=== PATIENT | female | born 1940 | race Caucasian/White ===

== ENCOUNTER 2019-12-29 07:16 | Outpatient (CLI) | payer MEDICARE, BC, SELFPAY ==
[2019-12-29 08:04] LABS: Blood Urea Nitrogen 16 mg/dL (7-17); Calcium 9.4 mg/dL (8.4-10.2); Carbon Dioxide 28 mmol/L (22-30); Chloride 104 mmol/L (98-107); Estimated Glomerular Filt Rate 43; Glucose 86 mg/dL (65-105); Potassium 4.1 mmol/L (3.4-5.0); Sodium 141 mmol/L (137-145)
== END 2019-12-29 07:17 | disposition home or self-care (01) ==
PROVIDERS: PCP Family Medicine; Visit Provider Physician Assistant Medical
DX: N28.9 Disorder of kidney and ureter, unspecified (principal)
CPT/HCPCS: 36415; 80048

== ENCOUNTER 2020-01-13 10:06 | Outpatient (CLI) | payer MEDICARE, BC, SELFPAY ==
[2020-01-13 10:45] LABS: Collection Time Urine 24 HOURS
[2020-01-13 10:55] LABS: Total Volume 24 Hour Urine 1400 ml
[2020-01-13 11:00] LABS: Total Protein Urine 24 Hr 168 MG/DAY (28-141); Total Protein Urine Random 12 mg/dL
[2020-01-13 11:02] LABS: Creatinine Urine 20.5 mg/dL; Patient Weight 117 Lbs
[2020-01-13 11:05] LABS: Basophils Absolute Auto 0.1 K/mm3 (0.0-0.1); Eosinophils Absolute Auto 0.1 K/mm3 (0-0.3); Eosinophils Percent Auto 1.7 % (0-4.4); Hematocrit 41.4 % (37.0-47.0); Hemoglobin 13.5 g/dL (12.0-15.0); Immature Granulocyte Absolute 0.01 K/mm3 (0.00-0.031); Immature Granulocyte Percent A 0.2 % (0-0.5); Immature Reticulocyte Fraction 8.6 % (3.0-15.9); Lymphocytes Absolute Auto 1.26 K/mm3 (0.9-3.2); Lymphocytes Percent Auto 24.2 % (18.3-44.2); Mean Corpuscular HGB Conc 32.6 g/dl (32-36); Mean Corpuscular Hemoglobin 30.5 pg (26-34); Mean Corpuscular Volume 93.5 fl (80-100); Mean Platelet Volume 11.6 fl (7.4-10.4); Monocytes Absolute Auto 0.4 K/mm3 (0.1-0.6); Monocytes Percent Auto 7.5 % (2.6-8.5); Neutrophils Absolute Auto 3.4 K/mm3 (1.3-6.7); Neutrophils Percent Auto 65.4 % (45.5-73.1); Platelet Count Result 220 k/mm3 (150-375); Red Blood Count 4.43 M/mm3 (4.2-5.4); Red Cell Distribution Width 11.8 % (11.5-14.5); Reticulocyte Hemoglobin Conten 34.4 pg (28.2-35.7); Reticulocyte Percent 1.32 % (0.7-4.3); Reticulocytes Absolute 0.06 B/L (32.2-175.7); White Blood Count 5.2 K/mm3 (4.5-10.0)
[2020-01-13 11:12] LABS: Add Urine Microscopic? YES; Appearance Urine Clear (Clear); Bacteria Urine Trace /hpf; Bilirubin Urine Negative (Negative); Blood Urine Negative (Negative); Color Urine Straw (Yellow); Glucose Urine UA Negative (Negative); Ketones Urine Negative (Negative); Leukocyte Esterase Ur Trace LEU/UL (NEGATIVE); Nitrate Urine Negative (Negative); Protein Urine Negative (Negative); RBC Urine 0-2 /hpf (0-2); Specific Grav Ur 1.008 (1.001-1.035); Urobilinogen Urine Negative mg/dL (<2.0)
[2020-01-13 11:18] LABS: Albumin Level 3.6 g/dL (3.5-5.1); Blood Urea Nitrogen 15 mg/dL (7-17); Calcium 9.7 mg/dL (8.4-10.2); Carbon Dioxide 31 mmol/L (22-30); Chloride 103 mmol/L (98-107); Estimated Glomerular Filt Rate 48; Glucose 95 mg/dL (65-105); Phosphorus 3.8 mg/dL (2.5-4.5); Potassium 4.6 mmol/L (3.4-5.0); Sodium 137 mmol/L (137-145); Uric Acid 3.9 mg/dL (2.5-7.5)
[2020-01-13 11:43] LABS: Iron 95 ug/dL (37-170)
[2020-01-13 11:50] LABS: Erythrocyte Sedimentation Rate 19 mm/hr (0-20)
[2020-01-13 11:52] LABS: Percent Iron Saturation 31 % (20-50)
[2020-01-13 13:23] LABS: Thyroid Stimulating Hormone Reflex 0.625 uIU/mL (0.465-4.68)
[2020-01-13 14:24] LABS: Creatinine Clearance Urine 21.2 ml/min (75-125)
[2020-01-13 15:23] LABS: Complement C3 84 mg/dL (88-165)
[2020-01-16 22:34] LABS: Albumin 3.3 g/dL (3.8-4.8); Alpha 1 Globulin 0.3 g/dL (0.2-0.3); Beta 1 Globulin 0.4 g/dL (0.4-0.6); Gamma Globulin 0.8 g/dL (0.8-1.7); Protein, Total 6.2 g/dL (6.1-8.1)
[2020-01-19 05:02] LABS: Anti Streptolysin O Screen <50 IU/mL (<200)
== END 2020-01-13 10:07 | disposition home or self-care (01) ==
LOC: ANHLAB 10:22
PROVIDERS: PCP Family Medicine
DX: N18.2 Chronic kidney disease, stage 2 (mild) (principal); R80.9 Proteinuria, unspecified; R53.83 Other fatigue; I12.9 Hypertensive chronic kidney disease with stage 1 through stage 4 chronic kidney disease, or unspecified chronic kidney disease; J18.8 Other pneumonia, unspecified organism
CPT/HCPCS: 36415; 80069; 81001; 81050; 82575; 83540; 83550; 83970; 84155; 84156; 84165; 84443; 84550; 85025; 85046; 85652; 86038; 86060; 86160

== ENCOUNTER 2020-02-16 11:07 | Inpatient (IN) | payer MEDICARE, BC, SELFPAY ==
--- NOTE | ~2020-02-16 | XR_ITS ---
XR surgery orthopedic 02/17/2020 15:53 Indication: Intraoperative fixation of left humerus Procedure: 6 fluoroscopic images of the left humerus. 163 seconds of fluoroscopy. Comparison: 02/16/2020 Findings: Interval placement of intramedullary juan j transfixing proximal humeral metadiaphyseal fractu re which is in near-anatomic alignment post reduction. There are 2 proximal interlocking screws and a single distal interlocking screw. Impression: 1: Status post intraoperative fixation of proximal left humeral metadiaphyseal fracture with intramed ullary juan j, now in near-anatomic alignment. Reviewed, dictated and finalized at location A. Impression: 1: Status post intraoperative fixation of proximal left humeral metadiaphyseal fracture with intramedullary juan j, now in near-anatomic alignment.
--- NOTE | ~2020-02-16 | XR_ITS ---
EXAMINATION: XR chest 2V DATE: 02/17/2020 07:53 INDICATION: Hypertension. Preop. TECHNIQUE: Frontal and lateral views of the chest were obtained. COMPARISON: Chest 2 views 09/21/2019, chest CT 11/22/2019 FINDINGS: There is mild scarring at the lung apices. There are airspace opacities in left mid and low er lung zones. There are small nodules in right upper lobe. No pleural effusion or pneumothorax. The heart size is normal. There is a hiatal hernia. There is a comminuted fracture of proximal left humer us. IMPRESSION: 1. Unchanged nodules in right upper lobe, likely chronic infection. 2. Worsened airspace opacities in left mid and lower lung zones, likely a combination of infection an d scarring. 3. Hiatal hernia. 4. Acute comminuted fracture of proximal left humerus. Reviewed, dictated and finalized at location A. IMPRESSION: 1. Unchanged nodules in right upper lobe, likely chronic infection. 2. Worsened airspace opacities in left mid and lower lung zones, likely a combi nation of infection and scarring. 3. Hiatal hernia. 4. Acute comminuted fracture of proximal left humerus.
--- NOTE | ~2020-02-16 | XR_ITS ---
EXAMINATION: XR shoulder LT min 2V EXAM DATE: 02/16/2020 12:17 INDICATION: Initial encounter following injury, with pain of the left shoulder. TECHNIQUE: 4 projections of the left shoulder. There is no prior study for comparison. FINDINGS: There is acute comminuted fracture of the left humeral proximal metaphysis, with additiona l fracture line extending through the greater tuberosity of the humeral head. No evidence of intra-ar ticular extension into the shoulder joint. There is mild angulation and displacement. Closed, posttra umatic fracture(s). There is overlying soft tissue swelling. No other acute findings. IMPRESSION: Left proximal humeral metaphysis, greater tuberosity fractures, mild angulation and displ acement. Reviewed, dictated and finalized at location B. IMPRESSION: Left proximal humeral metaphysis, greater tuberosity fractures, mil d angulation and displacement.
[2020-02-16 11:05] VITALS: BP 121/85; PULSE 73; RESP 12; TEMP 36.6; O2SAT 95
--- NOTE | 2020-02-16 11:24 | ED_ITS ---
I attest that this documentation has been prepared under the direction and in the presence of Kartik Pena PA-C. Drake, Brett A., Scribe 02/16/20;11:24 HPI - Fall General Chief Complaint: Fall Stated Complaint: arm injury Time Seen by Provider: 02/16/20 11:09 Related Data Home Medications Medication Instructions Recorded Confirmed clonazepam 0.5 mg tablet 0.5 mg PO DAILY 09/27/19 02/08/20 mirtazapine 45 mg tablet 15 mg PO DAILY tablet 11/09/19 02/08/20 Allergies Allergy/AdvReac Type Severity Reaction Status Date / Time gabapentin Allergy Unknown Seizure Verified 09/27/19 10:21 FOR[facility]LY [facility], [facility] Social History Social History Smoking status: Never smoker Alcohol intake: never Course Vital Signs Vital signs: Vital Signs Temperature 36.6 C 02/16/20 11:05 Pulse Rate 73 02/16/20 11:05 Respiratory Rate 12 02/16/20 11:05 Blood Pressure 121/85 02/16/20 11:05 Pulse Oximetry 95 02/16/20 11:05 Temperature 36.6 C 02/16/20 11:05 Pulse Rate 73 02/16/20 11:05 Respiratory Rate 12 02/16/20 11:05 Blood Pressure 121/85 02/16/20 11:05 Pulse Oximetry 95 02/16/20 11:05 Discharge Plan Discharge Prescriptions: No Action clonazepam 0.5 mg tablet 0.5 mg PO DAILY RF: 0 mirtazapine 45 mg tablet 15 mg PO DAILY RF: 0 lisinopril 40 mg tablet 40 mg PO DAILY Qty: 90 RF: 2 Belsomra 15 mg tablet 15 mg PO ONCE Qty: 30 RF: 0
--- NOTE | 2020-02-16 11:26 | ED.UPPEXIN ---
HPI - Extremity Injury (Upper) General Chief Complaint: Fall <DO Boo Cash Last Filed: 02/16/20 13:06> Stated Complaint: arm injury <DO Boo Cash Last Filed: 02/16/20 13:06> Time Seen by Provider: 02/16/20 11:09 <DO Boo Cash Last Filed: 02/16/20 13:06> Source: patient and RN notes reviewed <RAFA Cheney Last Filed: 02/16/20 13:07> Mode of arrival: EMS <RAFA Cheney Last Filed: 02/16/20 13:07> Limitations: no limitations <RAFA hCeney Filed: 02/16/20 13:07> History of Present Illness HPI narrative: Pt is a 79 y/o female who presents to the ED via EMS with c/o lt shoulder injury happening this morning. She notes that she was lifting a heavy rock in her garden this morning when she stumbled into the side of her house, striking her lt shoulder. Pt states that she has had pain in her lt shoulder ever since the injury. She denies any head injury during the fall. Pt also currently denies any neck pain, LE pain, CP, ABD pain, or numbness/tingling. <RAFA Cheney Last Filed: 02/16/20 13:07> MD complaint: injury to: left and shoulder <RAFA Cheney Last Filed: 02/16/20 13:07> Other injuries: none <RAFA Cheney Last Filed: 02/16/20 13:07> Place: home <RAFA Cheeny Last Filed: 02/16/20 13:07> Context: fall <RAFA Cheney Last Filed: 02/16/20 13:07> Associated symptoms: other (lt shoulder pain) <RAFA Cheney Last Filed: 02/16/20 13:07> Related Data Home Medications: Home Medications Medication Instructions Recorded Confirmed clonazepam 0.5 mg tablet 0.5 mg PO DAILY 09/27/19 02/08/20 mirtazapine 45 mg tablet 15 mg PO DAILY tablet 11/09/19 02/08/20 <DO Boo Cash Last Filed: 02/16/20 13:06> Allergies/Adverse Reactions: Allergies Allergy/AdvReac Type Severity Reaction Status Date / Time gabapentin Allergy Unknown Seizure Verified 09/27/19 10:21 <DO Boo Cash Last Filed: 02/16/20 13:06> Review of Systems Review of Systems: All systems reviewed & are unremarkable except as noted in HPI and below <Kartik Pena PA-C - Last Filed: 02/16/20 13:07> Cardiovascular: Cardiovascular: Denies chest pain <RAFA Cheney Last Filed: 02/16/20 13:07> Gastrointestinal: Gastrointestinal: Denies abdominal pain <RAFA Cheney Last Filed: 02/16/20 13:07> Musculoskeletal: Musculoskeletal: Reports arthralgias (lt shoulder pain), Denies neck pain and Denies other (LE pain) <RAFA Cheney Last Filed: 02/16/20 13:07> Neurologic: Denies numbness, Denies tingling and Denies other (head injury) <RAFA Cheney Last Filed: 02/16/20 13:07> PMFSH Past Medical History Medical History: Medical History Anemia, unspecified Anxiety Essential hypertension Hepatitis C Hiatal hernia Left wrist fracture Pneumonia Tardive dyskinesia <DO Boo Cash Last Filed: 02/16/20 13:06> Surgical History Surgical History: Surgical History History of repair of hiatal hernia Hx of cholecystectomy <DO Boo Cash Last Filed: 02/16/20 13:06> Social History Social History: Social History Smoking status: Never smoker Alcohol intake: never <DO Boo Cash Last Filed: 02/16/20 13:06> Exam Narrative: Exam Narrative: GENERAL: Well-appearing, well-nourished, and in no acute distress. HEAD: Normocephalic, atraumatic. EYES: PERRLA and EOMI. ENT: Nares clear, no rhinorrhea or epistaxis. Mucous membranes moist. Oropharynx without tonsillar hypertrophy exudate or other lesions. NECK: Supple. No adenopathy or masses. CHEST: Clear to auscultation. No respiratory distress. No wheeze
[2020-02-16] MEDS: MORPHINE SULFATE 4 MG/ML INJ IV PUSH ×2 (11:51→21:27)
[2020-02-16 13:49] VITALS: BP 159/88; PULSE 62; RESP 14; O2SAT 96
[2020-02-16 14:11] VITALS: PULSE 62; RESP 14; O2SAT 96; BMI 21.3
[2020-02-16 14:15] VITALS: BP 167/85; PULSE 58; RESP 18; TEMP 36.2; O2SAT 100
--- NOTE | 2020-02-16 14:36 | ADMGEN ---
This patient, Radha Saenz, was admitted to [facility] Surg Room 300-01. Patient/family oriented to hospital policies and general routines including ID bracelet, bed and alarms, visiting hours, pain management, procedures, bathroom and other care routines, personal items, smoking policy, room service/diet, and visiting hours. Valuables list has been completed. Information on how to activate the Rapid Response Team has been discussed. Patient/Family are encouraged to report perceived risks to care and to ask questions if they do not understand what they are told or what they should do.
--- NOTE | 2020-02-16 20:00 | PM.IMHP ---
H&P: HPI History of Present Illness Chief complaint: Left shoulder pain after fall. Narrative: Radha Saenz is a 79-year-old female with hypertension, GERD, anxiety, insomnia, chronic kidney disease stage 3, and orofacial dyskinesia who presented to the emergency department earlier this morning via EMS for evaluation of left shoulder pain after a fall. She was in her usual state of health this morning and in fact was tending to her garden. When attempting to move a large decorative rock, she stumbled and fell into the side of the house, striking her left shoulder before falling to the ground. She was unable to get herself up due to severe pain in the left arm, but luckily her neighbor was outside and was able to call for help. She was found to have proximal humerus fracture is being admitted in this setting. At the time my evaluation, her pain is poorly controlled despite IV Tylenol and morphine. She has a difficult time describing the pain saying that it ?just hurts.? The pain does not radiate in his situated mostly in the left anterior lateral shoulder and left upper arm. She denies paresthesias, skin color and temperature changes distal to the fracture. The morphine has been causing her nausea and dry heaves as well. She denies any other injury in the fall, specifically denying head trauma and loss of consciousness. Review of Systems Review of Systems: Narrative: Twelve systems were reviewed with pertinent positives and negatives as per HPI. No fever, chills, or sweats. No recent cold or flu symptoms. She denies chest pain and shortness of breath. She had nausea and dry heaves after receiving morphine as detailed above. No diarrhea. No dysuria. No known history of cardiac or pulmonary disease. No history of venous thromboembolism. Except as documented, all other systems were reviewed and are negative. [facility] Past Medical History Medical History (Updated 02/16/20 @ 22:16 by Lily Sagastume PA-C) Anemia With history of iron infusions. Anxiety Aortic valve regurgitation Echocardiogram in May 2018 showed normal left ventricular systolic function and size with mild concentric left ventricular hypertrophy and ejection fraction estimated at 60%. Mild aortic valve regurgitation noted with a valve area of 1.7 centimeters squared. Chronic kidney disease, stage 3 Baseline creatinine is 1.20. Esophageal stricture Essential hypertension Hepatitis C Secondary to needle stick. She has been evaluated by a bedspread cutter hand Dr. camacho at [facility], and was told she had no active issues and needed no treatment. Insomnia Left wrist fracture Migraine headache Orofacial dyskinesia With chronic dry mouth. Osteoporosis Seizure History of seizure x2 after taking gabapentin. Surgical History Surgical History (Updated 02/16/20 @ 22:07 by Lily Sagastume PA-C) History of cholecystectomy History of repair of hiatal hernia History of surgery on left wrist ORIF left distal radius fracture in [place] [address] Hidalgo. Family History Family History Mother Diabetes mellitus Lung cancer Sibling Stomach cancer Sibling Non-Hodgkin lymphoma Social History Social History (Updated 02/16/20 @ 22:07 by Lily Sagastume PA-C) Social History: The patient is and lives in her own home in [place]. She designates her daughter, Liss Sheikh, as her surrogate decision maker and she wishes to be a full code. She is a lifelong nonsmoker and denies alcohol and drug use. Spiritual care concerns: No Agree to blood products: Yes Meds Home Medications and Allergies Home Medications Medication Instructions Recorded Confirmed Type clonazepam 0.5 mg tablet 2 mg PO TID 09/27/19 02/16/20 History mirtazapine 45 mg tablet 15 mg PO HS tablet 11/09/19 02/16/20 History lisinopril 40 mg tablet 40 mg PO DAILY #90 tablet 11/29/19 02/16/20 Rx Pepcid 1 tablet PO HS PRN 02/15
[2020-02-16 21:25] VITALS: BP 132/76; PULSE 66; RESP 20; TEMP 36.5; O2SAT 97
--- NOTE | 2020-02-16 23:52 | PM.CNOR ---
Assessment and Plan Assessment and plan (1) Fracture, humerus, proximal: Qualifiers: Encounter type: initial encounter Fracture alignment: displaced Fracture morphology: other fracture Fracture type: closed Laterality: left Qualified Code(s): S42.292A - Other displaced fracture of upper end of left humerus, initial encounter for closed fracture Code(s): S42.209A - Unspecified fracture of upper end of unspecified humerus, initial encounter for closed fracture Status: Acute Assessment and Plan: Discussed nonoperative and operative treatment options with the patient. Risks and benefits of each as well as alternatives were reviewed. All of the patient's questions were answered. The risks of surgery reviewed including but not limited to: Neurovascular damage, wound complication, infection, blood clot, pulmonary embolus, stroke, myocardial infarction, and anesthetic risks up to and including . Continued pain and possible dysfunction were explained. Specific risks of the procedure including later recurrence of deformity. No guarantees were offered. If hardware used, discussed risk of failure/ breakage and possible need for removal. If complications occur, the patient understands the need for further treatment, possible further surgery. Patient verbalizes understanding and wishes to proceed. PLAN:Left humerus fracture intramedullary nail (2) Chronic kidney disease, stage 3: Code(s): N18.3 - Chronic kidney disease, stage 3 (moderate) Status: Acute History of Present Illness HPI Consult date: 02/17/20 Requesting physician: Steve Pitts MD Consult reason: fracture (Left humerus) Chief complaint: Left shoulder pain after fall. Narrative: 79 yo fell at home 02/16/20 working in garden on left side. Pain and deformity left arm. Pain to move. Denies N/T. Brought to [facility] ER found to have severe fx- admitted. No prior problems with shoulder/ arm. Previous wrist fx. Review of Systems Constitutional: Constitutional: Denies fever(s) Eyes: Eyes: Denies blurry vision ENT: Reports Normal hearing present Cardiovascular: Cardiovascular: Denies chest pain and Denies dyspnea Respiratory: Respiratory: Denies dyspnea and Denies wheezing Gastrointestinal: Gastrointestinal: Denies abdominal pain Genitourinary: Genitourinary: Denies urinary urgency Musculoskeletal: Musculoskeletal: Reports as per HPI and Denies numbness Integumentary/Breasts: Skin/Breast: Denies changing lesions and Denies sores Neurologic: Reports Normal hearing present, Denies behavioral changes, Denies confusion, Denies numbness and Denies convulsions Psychiatric: Psychiatric: Denies behavioral changes, Denies confusion and Denies hallucinations Endocrine: Endocrine: Denies heat intolerance Hematologic/Lymphatic: Hematologic/Lymphatic: Denies easy bleeding Allergic/Immunologic: Allergic/Immunologic: Denies wheezing [facility] Past Medical History Medical History (Updated 02/16/20 @ 23:56 by Kevin Pearson MD) Anemia With history of iron infusions. Anxiety Aortic valve regurgitation Echocardiogram in May 2018 showed normal left ventricular systolic function and size with mild concentric left ventricular hypertrophy and ejection fraction estimated at 60%. Mild aortic valve regurgitation noted with a valve area of 1.7 centimeters squared. Chronic kidney disease, stage 3 Baseline creatinine is 1.20. 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 She has been evaluated by a weld lay out worker Dr. camacho at [facility], and was told she had no active issues and needed no treatment. Insomnia Left wrist fracture Migraine headache Orofacial dyskinesia With chronic dry mouth. Osteoporosis Seizure History of seizure x2 after taking gabapentin. Surgical History Surgical History History of cholecystectomy Hist
[2020-02-17] VITALS (11 sets, daily range): BP systolic 119–163; BP diastolic 68–96; PULSE 54–73; RESP 10–16; TEMP 35.8–36.6; O2SAT 96–100
[2020-02-17 06:08] LABS: Hematocrit 36.3 % (37.0-47.0); Hemoglobin 11.6 g/dL (12.0-15.0); Mean Corpuscular Hemoglobin 30.5 pg (26-34); Mean Corpuscular Volume 95.5 fl (80-100); Mean Platelet Volume 12.2 fl (7.4-10.4); Platelet Count Result 203 k/mm3 (150-375); Red Cell Distribution Width 13.2 % (11.5-14.5); White Blood Count 6.3 K/mm3 (4.5-10.0)
[2020-02-17 06:18] LABS: Prothrombin Time 13.3 Seconds (11.1-14.7)
[2020-02-17 06:19] LABS: Partial Thromboplastin Time 33.1 SECONDS (22.3-36.8)
[2020-02-17 06:24] LABS: Blood Urea Nitrogen 32 mg/dL (7-17); Calcium 8.9 mg/dL (8.4-10.2); Carbon Dioxide 28 mmol/L (22-30); Chloride 103 mmol/L (98-107); Estimated CRCL calculation 37 ml/min; Estimated Glomerular Filt Rate > 60; Glucose 119 mg/dL (65-105); Potassium 4.5 mmol/L (3.4-5.0); Sodium 136 mmol/L (137-145)
--- NOTE | 2020-02-17 09:26 | ECG_ITS ---
Measurements Intervals [place] Rate: 68 P: 55 IN: 186 QRS: 62 QRSD: 73 T: 16 QT: 403 QTc: 429 Interpretive Statements SINUS RHYTHM NONSPECIFIC T-WAVE ABNORMALITY- ANT/INF LEADS BASELINE WANDER- V6 BORDERLINE ECG Electronically Signed On 02-17-2020 9:45:09 CDT by Hakan Garza D.O.
[2020-02-17] MEDS: HYDROMORPHONE HCL 1 MG/ML INJ 0.5 MG IV PUSH (09:48)
[2020-02-17] MEDS: ONDANSETRON INJ 4 MG/2 ML VIAL IV PUSH (09:48)
[2020-02-17] MEDS: LACTATED RINGERS 1,000 ML 30 ML IV CONT ×2 (11:50→16:07)
--- NOTE | 2020-02-17 12:21 | P.OP_ITS ---
Procedure Note - Detailed Date of procedure: 02/17/20 Pre-op diagnosis: Left shoulder pain after fall. LT proximal humerus fracture Post-op diagnosis: same Procedure performed: IM nail left humerus fx Description of procedure: indications: Patient is a 79-year-old woman with a severe left proximal humeral shaft fracture with angulation and 100% displacement. Patient desires operative treatment. Full discussion of risks, benefits and alternatives had with the patient. She verbalizes understanding wishes to proceed. What was done: Patient identified in the preoperative holding. Informed consent given. Operative extremity marked. Patient received intravenous antibiotics. Patient brought to the operating room where underwent general anesthetic by anesthesia team. Positioned supine on operating room table In a semi beach chair position. Careful securing of the head and neck ensured.. Time-out performed confirming the patient, site of the surgery and the plan. Left shoulder prepped and draped usual sterile surgical fashion using a ChloraPrep skin solution. Oblique incision made from the anterolateral corner of the acromion with a 15 blade knife. Hemostasis controlled electrocautery. Dis section carried down to the deltoid and the anterior and middle portions of the deltoid identified and bluntly divided. Subdeltoid retractor placed. Rotator cuff insertion on the greater tuberosity noted. Over the border of the greater tuberosity in the articular surface incision made within the fibers of the rotator cuff supraspinatus with a 15 blade knife. Care taken not to disrupt the insertion. Starter guide pin placed at the border of the humeral head articular surface and verified with image intensification. Hand one-step reaming done over this for the proximal humerus. Guide juan j then inserted across the fracture into the distal fragment and verified with image intensification. Measurement of the length of the humerus done and intramedullary reaming then performed starting with size 7 mm. Based on the size of the intramedullary canal a size 8 mm nail was selected and reaming was performed to a size 9.5 mm. 240 mm length by 8 mm nail opened and assembled on the back table. This was inserted over the guide ujan j and the guide juan j was removed. Correct depth verified with image intensification and 2 locking screws placed with the out communications program manager device proximally using percutaneous stab incisions for the skin and blunt dissection of soft tissue. The most proximal screw locked in place with the neutral end cap. Out communications program manager device removed. Image intensification used to confirm reduction of the fracture. Distal locking then performed from anterior to posterior in a freehand technique. 3.5 mm distal locking screw placed and verified with image intensification. Entire length of the humerus and placement of the nail verified with image intensification. Wounds then thoroughly irrigated with the antibiotic solution. Proximally the rotator cuff was repaired with 0 Vicryl interrupted suture. The deltoid fascia repaired with 0 Vicryl suture. Subcutaneous tissue repaired with 3 0 Monocryl interrupted suture and 3 Monocryl running suture. Stab incisions closed with 3 Monocryl interrupted sutures. Steri-Strips and sterile dressings applied. Patient then woken from anesthesia, extubated and taken to the recovery room in stable condition. All sponge needle and instrument counts were correct at the end of the case. Implants: Biomet VersaNail 240mm X 8mm, 2 proximal locking screws, 4.5 mm, 1 distal locking screw 3.5 mm Anesthesia: GLMA and GETA Surgeon: Kevin Pearson MD Universal [employer]er: Jira Administrator Drains: No Packing: No Pathology: none sent Complications: None Condition: sta
--- NOTE | 2020-02-17 13:27 | WPDANESEPPF ---
Anes - Initial Pre Proc Eval Procedure: Operation Date: 02/17/20 12:00 Proposed Procedures p Left Intramedullary Nail Humerus(Left) - Kevin Pearson MD Date/Time: 02/17/20 13:27 Surgeon: Tom Mendoza PA-C Pre Op Diagnosis: Left shoulder pain after fall. Patient Data Age: 79 Gender: F Height: 5 ft 1 in Weight: 51.26 kg Last Vital Signs Temp 36.1 C L 02/17/20 12:04 Pulse 73 02/17/20 12:04 Resp 16 02/17/20 12:04 BP 132/72 02/17/20 12:04 Pulse Ox 96 02/17/20 12:04 Allergies Allergy/AdvReac Type Severity Reaction Status Date / Time gabapentin Allergy Unknown Seizure Verified 02/17/20 12:39 Home Medications Medication Instructions Recorded Confirmed Type clonazepam 0.5 mg tablet 2 mg PO TID 09/27/19 02/16/20 History mirtazapine 45 mg tablet 15 mg PO HS tablet 11/09/19 02/16/20 History lisinopril 40 mg tablet 40 mg PO DAILY #90 tablet 11/29/19 02/16/20 Rx Pepcid 1 tablet PO HS PRN 02/16/20 02/16/20 History suvorexant [Belsomra] 15 mg PO DAILY 02/16/20 02/16/20 History Laboratory Tests 02/17/20 02/17/20 02/17/20 05:11 05:11 05:11 WBC 6.3 K/mm3 K/mm3 (4.5-10.0) RBC 3.80 M/mm3 L M/mm3 (4.2-5.4) Hgb 11.6 g/dL L g/dL (12.0-15.0) Hct 36.3 % L % (37.0-47.0) MCV 95.5 fl fl (80-100) MCH 30.5 pg pg (26-34) MCHC 32.0 g/dl g/dl (32-36) RDW 13.2 % % (11.5-14.5) Plt Count 203 k/mm3 k/mm3 (150-375) MPV 12.2 fl H fl (7.4-10.4) PT 13.3 Seconds Seconds (11.1-14.7) INR 1.0 APTT 33.1 SECONDS SECONDS (22.3-36.8) Sodium 136 mmol/L L mmol/L (137-145) Potassium 4.5 mmol/L mmol/L (3.4-5.0) Chloride 103 mmol/L mmol/L (98-107) Carbon Dioxide 28 mmol/L mmol/L (22-30) BUN 32 mg/dL H D mg/dL (7-17) Creatinine 0.80 mg/dL mg/dL (0.7-1.0) Estim Creat Clear Calc 37 ml/min ml/min Estimated GFR > 60 (59 - ) Glucose 119 mg/dL H mg/dL (65-105) Calcium 8.9 mg/dL mg/dL (8.4-10.2) Patient hx anesthesia problems: none Family hx anesthesia problems: none [facility] Past Medical History Medical History Anemia With history of iron infusions. Anxiety Aortic valve regurgitation Echocardiogram in May 2018 showed normal left ventricular systolic function and size with mild concentric left ventricular hypertrophy and ejection fraction estimated at 60%. Mild aortic valve regurgitation noted with a valve area of 1.7 centimeters squared. Chronic kidney disease, stage 3 Baseline creatinine is 1.20. 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 She has been evaluated by a orthotic/prosthetic practitioner Dr. camacho at [facility], and was told she had no active issues and needed no treatment. Insomnia Left wrist fracture Migraine headache Orofacial dyskinesia With chronic dry mouth. Osteoporosis Seizure History of seizure x2 after taking gabapentin. Surgical History Surgical History History of cholecystectomy History of repair of hiatal hernia History of surgery on left wrist ORIF left distal radius fracture in August [address] Hidalgo. Family History Family History Mother Diabetes mellitus Lung cancer Sibling Stomach cancer Sibling Non-Hodgkin lymphoma Social History Social History Social History: The patient is and lives in her own home in [place]. She designates her daughter, Liss Sheikh, as her surrogate decision maker and she wishes to be a full code. She is a lifelong nonsmoker and denies alcohol and drug use. Spiritual care concerns: No Agr
[2020-02-17] MEDS: ceFAZolin 2 GM/D5W 50 ML 2 GM/50 ML BAG IVPB (14:08)
[2020-02-17] MEDS: BUPIVACAINE/EPINEPHRINE 0.5% 10 ML VIAL 20 ML INFILTRATE (15:13)
--- NOTE | 2020-02-17 17:15 | SUR.PHASEI ---
1700 SPOKE WITH PTS DAUGHTER MAUREEN PER PHONE- UPDATE GIVEN.
[2020-02-17] MEDS: DOCUSATE SODIUM 100 MG CAPSULE PO (17:50)
[2020-02-17] MEDS: CLONAZEPAM 0.5 MG TAB 2 MG PO (17:50)
--- NOTE | 2020-02-17 18:30 | PM.IMPN ---
Progress Note: A&P Assessment and Plan (1) Fracture of shoulder: Code(s): S42.90XA - Fracture of unspecified shoulder girdle, part unspecified, initial encounter for closed fracture Status: Acute Assessment and Plan: POD 0 left humerus IM nail placement per Dr. Pearson. Patient doing well postoperatively. Dr. Pearson consulted; PT/OT, pain management, post operative care per Dr. Pearson Monitor Per CC, plan will be for patient to return home after discharge with two granddaughters to assist in any needs (2) Essential hypertension: Code(s): I10 - Essential (primary) hypertension Status: Acute Assessment and Plan: Blood pressures were reviewed and stable prior to surgery; BP this evening into 160s sys Continue antihypertensives and monitor daily. Consider prn hydralazine (3) Chronic kidney disease, stage 3: Code(s): N18.3 - Chronic kidney disease, stage 3 (moderate) Status: Acute Assessment and Plan: Cr 0.80. Monitor BMP (4) Anxiety: Code(s): F41.9 - Anxiety disorder, unspecified Status: Acute Assessment and Plan: Continue clonazepam. Subjective Date/time seen: 02/17/20 18:30 Interval history: Patient is a 79 yo F with history of hypertension, GERD, anxiety, insomnia, chronic kidney disease stage 3, and orofacial dyskinesia who is here for closed fracture of left shoulder with mild angulation and dislocation s/p fall while at home; POD 0 IM nail left humerus per Dr. Pearson. Patient states she is doing okay. Pain is reasonable at this moment. She states she has a sensation she has to urinate, but is reoriented that she has a [place] catheter placed. She states she lives with her 2 granddaughters at home and normally ambulates without difficulty. Patient has no other complaints other than wishing to eat. Denies f/c/s, myalgias/arthralgias, headaches, dizziness, lightheadedness, changes in v/h, cp/palpitations, sob/cough, n/v/d/c, abd pain, changes in BMs, dysuria, hematuria, cloudy urine, calf pain/swelling. Review of Systems Review of Systems: All systems reviewed & are unremarkable except as noted in HPI and below Exam Narrative: Exam Narrative: Patient sitting upright in bed at time of visit Const: General: cooperative, comfortable, no acute distress, alert and awake Nutritional Appearance: thin Orientation/consciousness: patient oriented x3 HENMT: Head: normocephalic and atraumatic General nose exam: Normal nares present Face and sinus: face symmetric Mouth: Yes dry mucous membranes Teeth and gingiva: fair dentition Eyes: General: appearance normal, both eyes and all related structures EOM: EOMs intact bilaterally Neck: Neck: trachea midline and supple Resp: Effort & Inspection: normal respiratory effort Auscultation: clear to auscultation bilaterally Cardio: Rate: regular rate Rhythm: regular rhythm Heart sounds: Murmur heart sound present systolic GI: Inspection: non-distended GI Palp: No abdominal tenderness and Yes Soft to palpation Auscultation: normal bowel sounds and normoactive bowel sounds Skin: General skin exam: normal color and no rashes or lesions noted Neuro: General: patient oriented x3, moves all extremities and No no focal motor deficits (left arm immobilized with sling. 5/5 ltgrip strength ) Speech: normal speech Extrem: Left upper extremity: shoulder/upper arm (left arm immobilized in sling. ) Right lower extremity: no edema Left lower extremity: no edema Other: NTTP b/l calves full sensation in all extremities. 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
[2020-02-17] MEDS: MIRTAZAPINE 15 MG TABLET PO (20:57)
[2020-02-18 02:00] VITALS: BP 155/78; PULSE 81; RESP 18; TEMP 36.4; O2SAT 99
[2020-02-18 06:00] VITALS: BP 151/81; PULSE 84; RESP 16; TEMP 36.3; O2SAT 98
[2020-02-18 06:05] LABS: Basophils Percent Auto 0.2 % (0.2-1.2); Hematocrit 33.2 % (37.0-47.0); Hemoglobin 10.6 g/dL (12.0-15.0); Immature Granulocyte Absolute 0.01 K/mm3 (0.00-0.031); Immature Granulocyte Percent A 0.1 % (0-0.5); Lymphocytes Absolute Auto 0.64 K/mm3 (0.9-3.2); Lymphocytes Percent Auto 6.8 % (18.3-44.2); Mean Corpuscular HGB Conc 31.9 g/dl (32-36); Mean Corpuscular Hemoglobin 30.6 pg (26-34); Mean Platelet Volume 12.4 fl (7.4-10.4); Monocytes Absolute Auto 0.7 K/mm3 (0.1-0.6); Monocytes Percent Auto 7.7 % (2.6-8.5); Neutrophils Percent Auto 85.2 % (45.5-73.1); Platelet Count Result 196 k/mm3 (150-375); Red Blood Count 3.46 M/mm3 (4.2-5.4); Red Cell Distribution Width 13.2 % (11.5-14.5); White Blood Count 9.4 K/mm3 (4.5-10.0)
[2020-02-18 06:11] LABS: Blood Urea Nitrogen 25 mg/dL (7-17); Calcium 8.6 mg/dL (8.4-10.2); Carbon Dioxide 30 mmol/L (22-30); Chloride 106 mmol/L (98-107); Estimated CRCL calculation 37 ml/min; Estimated Glomerular Filt Rate > 60; Glucose 122 mg/dL (65-105); Magnesium 2.1 mg/dL (1.6-2.3); Potassium 5.2 mmol/L (3.4-5.0); Sodium 137 mmol/L (137-145)
[2020-02-18] MEDS: CLONAZEPAM 0.5 MG TAB 2 MG PO ×2 (08:30→12:02)
[2020-02-18] MEDS: lisinopriL 20 MG TABLET 40 MG PO (08:30)
[2020-02-18] MEDS: DOCUSATE SODIUM 100 MG CAPSULE PO (08:31)
--- NOTE | 2020-02-18 09:05 | PM.PNORT ---
Progress Note: A&P Assessment and Plan (1) Fracture, humerus, proximal: Qualifiers: Encounter type: subsequent encounter Fracture type: closed Fracture morphology: other fracture Fracture alignment: displaced Laterality: left Fracture healing: with routine healing Qualified Code(s): S42.292D - Other displaced fracture of upper end of left humerus, subsequent encounter for fracture with routine healing Code(s): S42.209A - Unspecified fracture of upper end of unspecified humerus, initial encounter for closed fracture Status: Acute Assessment and Plan: Postoperative day 1. Intramedullary nail left humerus. Patient up in chair. Moderate pain left arm. Wants to go home. Reviewed use of sling. PT/OT today. If cleared okay from Ortho to discharge home. Use of sling when up. Adjust p.r.n.. Light use of left hand. No use left shoulder. Follow up in 3 weeks. Pain medication prescription dispensed. Subjective Subjective Date/Time Seen: 02/18/20 09:05 Patient awake, up in chair. Complains of left arm pain, moderate. Denies numbness or tingling. Denies problems breathing. Exam Const: General: healthy appearing; No in distress or confusion Orientation/consciousness: oriented to person, oriented to place, oriented to time and No confusion HENMT: Head: normal to inspection, normocephalic and atraumatic Eyes: Conjunctivae: conjunctivae normal Sclera: sclerae normal Neck: Neck: supple and nontender Resp: Effort & Inspection: normal respiratory effort and no audible wheezes Cardio: Rate: regular rate Rhythm: regular rhythm Skin: General skin exam: no rashes or lesions noted Neuro: General: oriented to person, oriented to place, oriented to time and No confusion Extrem: Right upper extremity: shoulder/upper arm, elbow/forearm, wrist and Extremity exam: right hand Left upper extremity: normal to inspection, shoulder/upper arm, elbow/forearm, wrist and hand Right lower extremity: normal to inspection Left lower extremity: normal to inspection Other: Left shoulder dressing in place, clean and dry. Able to extend wrist and thumb. Radial, ulnar, median nerve function intact to motor and sensation. Palpable radial pulse, good capillary refill. Good sensation throughout all fingertips. Psych: Affect: normal affect Objective Data Vital Signs Vital Signs: Vital Signs - 24 hr 02/17/20 12:04 02/17/20 16:07 02/17/20 16:20 Temperature 96.9 F L 97.8 F Pulse Rate 73 54 L 64 Respiratory Rate 16 10 L 12 Blood Pressure 132/72 151/92 H 154/83 H Pulse Oximetry 96 100 100 02/17/20 16:35 02/17/20 16:50 02/17/20 17:05 Temperature Pulse Rate 62 64 66 Respiratory Rate 12 16 14 Blood Pressure 157/96 H 156/84 H 161/87 H Pulse Oximetry 96 99 99 02/17/20 17:25 02/17/20 17:40 02/17/20 18:10 Temperature 96.4 F L 96.5 F L 97.8 F Pulse Rate 65 60 67 Respiratory Rate 16 16 16 Blood Pressure 154/92 H 130/94 H 163/85 H Pulse Oximetry 96 96 96 02/17/20 21:55 02/18/20 02:00 02/18/20 06:00 Temperature 97.3 F L 97.5 F L 97.3 F L Pulse Rate 64 81 84 Respiratory Rate 16 18 16 Blood Pressure 134/71 155/78 H 151/81 H Pulse Oximetry 98 99 98 Intake/Output Intake/Output: Intake & Output 02/15/20 02/16/20 02/17/20 02/18/20 23:59 23:59 23:59 23:59 Intake Total 150 690 430 Output Total 0 590 600 Balance 150 100 -170 Meds/Results Medications: Active Medications Generic Name Dose Route Start Last Admin Trade Name Freq PRN Reason Stop Dose Admin Acetaminophen 650 mg 02/17/20 17:20 Tylenol Tablet PO Q6H PRN Pain Rated 1-3 Hydrocodone Bitart/Acetaminophen 1 tab 02/17/20 17:20 02/18/20 06:26 [place] 5-325 Mg PO 1 tab Q3H PRN Administration Pain Rated 4-6 Clonazepam 2 mg 02/17/20 09:00 02/18/20 08:30 Klonopin Tablet PO 2 mg TID ERICK Administration Dicyclomine HCl 20 mg 02/16/20 13:08 Bentyl Inj IM Q6H PRN Abdominal Cramping
--- NOTE | 2020-02-18 09:08 | PCPTNOTE ---
No Care Plan initiated as pateint does not require skilled PT at this time and patient being discharged today.
[2020-02-18 10:01] VITALS: BP 131/74; PULSE 68; RESP 16; TEMP 36.9; O2SAT 98
--- NOTE | 2020-02-18 10:04 | PM.DS ---
DS: Diagnosis Admitting Diagnosis Admitting Diagnosis: Fracture of unspecified shoulder girdle, part unspecified, initial encounter for closed fracture Discharge Diagnosis (1) Fracture of shoulder: Code(s): S42.90XA - Fracture of unspecified shoulder girdle, part unspecified, initial encounter for closed fracture Status: Acute Assessment and Plan: POD 1 left humerus IM nail placement per Dr. Pearson. Patient doing well postoperatively. Patient cleared from discharge from Ortho standpoint, if cleared from PT/OT Dr. Pearson consulted; PT/OT, pain management, post operative care per Dr. Pearson Likely discharge home today Per CC, plan will be for patient to return home after discharge with two granddaughters to assist in any needs Likely outpatient PT/OT (2) Essential hypertension: Code(s): I10 - Essential (primary) hypertension Status: Acute Assessment and Plan: Blood pressures were reviewed and stable; BP this morning 130s sys Continue antihypertensives and monitor daily. F/u up with PCP (3) Chronic kidney disease, stage 3: Code(s): N18.3 - Chronic kidney disease, stage 3 (moderate) Status: Acute Assessment and Plan: Cr 0.80. Further care per PCP (4) Anxiety: Code(s): F41.9 - Anxiety disorder, unspecified Status: Acute Assessment and Plan: Continue clonazepam. (5) Hyperkalemia: Code(s): E87.5 - Hyperkalemia Status: Acute Assessment and Plan: Mild with K at 5.2; asymptomatic, no cp/palpitations F/u with outpatient BMP F/u with PCP DS: Summary Hospital Course Reason for hospitalization: left fractured humerus s/p fall Hospital Course: Patient is a 79 yo F with history of hypertension, GERD, anxiety, insomnia, chronic kidney disease stage 3, and orofacial dyskinesia who presented to the emergency department on morning of 02/15 via EMS for evaluation of left shoulder pain after a fall. Patient was in her usual state of health when she fell into the side of her house after trying to move a large decorative rock, stumbling and falling on her left shoulder into the house. EMS was summoned by her neighbor and was taken to the ER where she was found to have a closed fracture of the left shoulder with mild angulation and displacement. Please see H&P for further details. Presenting VS: Temp Pulse Resp BP Pulse Ox 97.8 F 73 12 121/85 95 02/16/20 11:05 02/16/20 11:05 02/16/20 11:05 02/16/20 11:05 02/16/20 11:05 Presenting Pertinent labs: CBC, BMP, coags, grossly unremarkable Micro: none Imaging: Shoulder X-Ray 02/16/20 12:18 IMPRESSION: Left proximal humeral metaphysis, greater tuberosity fractures, mild angulation and displacement. Chest X-Ray 02/17/20 07:58 IMPRESSION: 1. Unchanged nodules in right upper lobe, likely chronic infection. 2. Worsened airspace opacities in left mid and lower lung zones, likely a combination of infection and scarring. 3. Hiatal hernia. 4. Acute comminuted fracture of proximal left humerus. Intraoperative X-Ray 02/17/20 16:13 Impression: 1: Status post intraoperative fixation of proximal left humeral metadiaphyseal fracture with intramedullary juan j, now in near-anatomic alignment. ECG: Interpretive Statements SINUS RHYTHM NONSPECIFIC T-WAVE ABNORMALITY- ANT/INF LEADS BASELINE WANDER- V6 BORDERLINE ECG Patient was admitted to the hospitalist service for further evaluation for left humerus fracture; Dr. Pearson (orthopedic surgery) was consulted for further management. It was decided that patient would under go IM nail placement per Dr. Pearson. Patient tolerated surgery well, without any complications on 02/16. On following day, patient worked well with PT/OT and recommended outpatient therapy. Pain was well controlled with pain
[2020-02-18 14:00] VITALS: BP 146/61; PULSE 71; RESP 18; TEMP 36.6; O2SAT 100
== END 2020-02-18 14:15 | disposition home or self-care (01) | DRG 494 ==
LOC: ANHED 13:18 → ANH3MEDSUR 13:25
PROVIDERS: Orthopaedic Surgery; Physician Assistant; Admitting Provider Internal Medicine; Emergency Provider Emergency Medicine; PCP Family Medicine; Visit Provider Physician Assistant
PROC: 0PHG36Z Insertion of Intramedullary Internal Fixation Device into Left Humeral Shaft, Percutaneous Approach (ICD-10-PCS; principal; 2020-02-17 12:00)
DX: S42.292A Other displaced fracture of upper end of left humerus, initial encounter for closed fracture (principal); S42.252A Displaced fracture of greater tuberosity of left humerus, initial encounter for closed fracture; I12.9 Hypertensive chronic kidney disease with stage 1 through stage 4 chronic kidney disease, or unspecified chronic kidney disease; N18.3 Chronic kidney disease, stage 3 (moderate); F41.9 Anxiety disorder, unspecified; E87.5 Hyperkalemia; K21.9 Gastro-esophageal reflux disease without esophagitis; G24.4 Idiopathic orofacial dystonia; W01.198A Fall on same level from slipping, tripping and stumbling with subsequent striking against other object, initial encounter; D63.1 Anemia in chronic kidney disease; K44.9 Diaphragmatic hernia without obstruction or gangrene; M81.0 Age-related osteoporosis without current pathological fracture; G47.00 Insomnia, unspecified; I35.1 Nonrheumatic aortic (valve) insufficiency; Z86.19 Personal history of other infectious and parasitic diseases; Z90.49 Acquired absence of other specified parts of digestive tract
CPT/HCPCS: 36415; 71046; 73030; 80048; 83735; 85025; 85027; 85610; 85730; 93005; 96374; 97161; 97165; 97535; 99285; A4565; A9270; J0131; J0690; J1170; J2250; J2270; J2405; J3010; J7120

== ENCOUNTER 2020-02-21 07:19 | Outpatient (CLI) | payer MEDICARE, BC, SELFPAY ==
[2020-02-21 08:14] LABS: Blood Urea Nitrogen 21 mg/dL (7-17); Calcium 8.8 mg/dL (8.4-10.2); Carbon Dioxide 29 mmol/L (22-30); Chloride 102 mmol/L (98-107); Estimated Glomerular Filt Rate 60; Glucose 102 mg/dL (65-105); Potassium 3.5 mmol/L (3.4-5.0); Sodium 135 mmol/L (137-145)
== END 2020-02-21 07:20 | disposition home or self-care (01) ==
PROVIDERS: PCP Family Medicine; Visit Provider Physician Assistant
DX: E87.5 Hyperkalemia (principal)
CPT/HCPCS: 36415; 80048

== ENCOUNTER 2020-03-21 10:36 | Outpatient (CLI) | payer MEDICARE, BC, SELFPAY ==
[2020-03-21 11:08] LABS: Basophils Percent Auto 0.3 % (0.2-1.2); Eosinophils Absolute Auto 0.1 K/mm3 (0-0.3); Eosinophils Percent Auto 1.2 % (0-4.4); Hematocrit 38.2 % (37.0-47.0); Hemoglobin 12.4 g/dL (12.0-15.0); Immature Granulocyte Absolute 0.03 K/mm3 (0.00-0.031); Immature Granulocyte Percent A 0.5 % (0-0.5); Lymphocytes Absolute Auto 1.32 K/mm3 (0.9-3.2); Mean Corpuscular HGB Conc 32.5 g/dl (32-36); Mean Corpuscular Hemoglobin 32.6 pg (26-34); Mean Corpuscular Volume 100.5 fl (80-100); Mean Platelet Volume 11.6 fl (7.4-10.4); Monocytes Absolute Auto 0.3 K/mm3 (0.1-0.6); Monocytes Percent Auto 5.6 % (2.6-8.5); Neutrophils Percent Auto 69.4 % (45.5-73.1); Platelet Count Result 252 k/mm3 (150-375); Red Cell Distribution Width 17.2 % (11.5-14.5); White Blood Count 5.7 K/mm3 (4.5-10.0)
[2020-03-21 11:22] LABS: Alanine Aminotransferase 214 U/L (4-35); Albumin Level 4.3 g/dL (3.5-5.1); Alkaline Phosphatase 103 U/L (38-126); Aspartate Amino Transferase 87 U/L (14-36); Bilirubin,Total 0.6 mg/dL (0.2-1.3); Blood Urea Nitrogen 38 mg/dL (7-17); Calcium 9.9 mg/dL (8.4-10.2); Carbon Dioxide 14 mmol/L (22-30); Chloride 115 mmol/L (98-107); Estimated Glomerular Filt Rate 26; Glucose 88 mg/dL (65-105); Potassium 4.4 mmol/L (3.4-5.0); Sodium 143 mmol/L (137-145)
[2020-03-21 12:00] LABS: Free T4 Free Thyroxine 1.49 ng/mL (0.78-2.19)
[2020-03-22 07:00] LABS: Rapid Plasma Reagin Non-Reactive (NonReactive)
[2020-03-27 19:25] LABS: Hepatitis C RNA, Quant PCR 2130000 IU/mL
== END 2020-03-21 10:37 | disposition home or self-care (01) ==
PROVIDERS: PCP Family Medicine; Visit Provider Family Medicine
DX: N18.3 Chronic kidney disease, stage 3 (moderate) (principal); F41.9 Anxiety disorder, unspecified; B18.2 Chronic viral hepatitis C; R41.0 Disorientation, unspecified
CPT/HCPCS: 36415; 80053; 84439; 84443; 85025; 86592; 87522

== ENCOUNTER 2020-03-21 14:02 | Inpatient (IN) | payer MEDICARE, BC, SELFPAY ==
[2020-03-21] VITALS (8 sets, daily range): BP systolic 117–168; BP diastolic 67–88; PULSE 71–84; RESP 17–26; TEMP 36.7–36.8; O2SAT 97–100; BMI 18.1
--- NOTE | ~2020-03-21 | CT_ITS ---
EXAMINATION: CT chest abdomen pelvis wo con EXAM DATE: 03/21/2020 16:12 INDICATION: Weight loss and metabolic acidosis. Renal disease. Left humeral fracture internal fixatio n in February. TECHNIQUE: Spiral CT of the chest, abdomen and pelvis was performed without contrast. Axial, hampton l and sagittal images were reviewed. Coronal maximum intensity pixel images of chest reviewed. The dose-length product (DLP) for this examination was 280.05 mGy-cm. The exposure was tailored accordin g to patient size (auto mA exposure control), and iterative reconstruction (ASIR) was used as additio nal dose reduction technique. Comparison is made to prior examination from 11/22/2019. FINDINGS: CHEST: There is mild interval progression in scattered regions of reticular nodular airspace disease appearance most consistent with chronic infectious process, possibly fungal or TB infection. There i s lingular atelectasis. There are no pleural or pericardial effusions. Tracheobronchial tree is pa tent. There is no mediastinal, hilar or axillary lymphadenopathy. There is no pneumothorax. Hea rt normal in size. There is mild coronary arterial calcification, arterial sclerosis. There is mil d emphysema and hyperinflation. Comminuted left proximal humeral fracture with fixation hardware. ABDOMEN PELVIS: The liver, spleen, adrenal glands and pancreas are unremarkable. There are cholecyst ectomy clips. There is no nephrolithiasis or hydronephrosis. The uterus is unremarkable. The donny dder is unremarkable. There is no retroperitoneal or pelvic lymphadenopathy. There is mild scatter ed arteriosclerotic disease. The appendix is not positively visualized. There is no pericecal inflammatory change to suggest appe ndicitis. Gastroesophageal surgical changes. There is expected amount of colonic stool. No free intraperitoneal gas. There are bony degenerative changes. No osteoblastic or osteolytic lesions anders ntified. Old right rami fractures with nonunion. IMPRESSION: 1. Mild progression in scattered regions of reticular nodular airspace disease which could be chroni c infectious process, possibly TB or fungal infection. 2. Chronic lingular atelectasis. 3. Mild emphysema and hyperinflation. 4. Chronic, surgical changes. Reviewed, dictated and finalized at location A. IMPRESSION: 1. Mild progression in scattered regions of reticular nodular airspace disease which could be chronic infectious process, possibly TB or fungal infection. 2. Chronic lingular atelectasis. 3. Mild emphysema and hyperinflation. 4. Chronic, surgical changes.
--- NOTE | ~2020-03-21 | MR_ITS ---
EXAMINATION: MR brain/brain stem wo con EXAM DATE: 03/23/2020 16:36 INDICATION: Slurred speech. TECHNIQUE: Magnetic resonance imaging (MRI) of the brain/brain stem obtained without contrast. Sagitt al T1, axial diffusion, gradient echo (T2*), T1, T2, FLAIR sequences obtained. Comparison is made to prior examination from 02/02/2018. FINDINGS: There are no areas of restricted diffusion to suggest acute infarction. There is no acute hemorrhage seen on the T2*, a hemosiderin sensitive sequence. No intraparenchymal brain mass lesion. There is moderate periventricular and subcortical T2/FLAIR signal hyperintensity, nonspecific but pr obably related to small vessel ischemic disease (microangiopathy). There is mild prominence of the sulci and ventricles related to cerebral atrophy. There are no extra-axial collections. Flow voids are seen in the cerebral arteries on the T2-weighted sequences consistent with their expected patenc y. The orbits are unremarkable. Soft tissue is unremarkable. IMPRESSION: 1. No acute intracranial findings. 2. Chronic age related findings. Reviewed, dictated and finalized at location A.
--- NOTE | ~2020-03-21 | US_ITS ---
US renal BI DATE: 03/22/2020 07:45 INDICATION: Acute on chronic renal failure TECHNIQUE: Real-time imaging of both kidneys and urinary bladder COMPARISON: 03/21/2020 CT chest abdomen pelvis FINDINGS: The right kidney measures approximately 8.3 cm length, the left kidney 8.9 cm length. No re nal mass lesion or hydronephrosis is evident. Renal parenchymal echogenicity appears within normal ra nge. The urinary bladder is not well demonstrated. IMPRESSION: No renal mass lesion or hydronephrosis is detected sonographically Reviewed, dictated and finalized at [facility]. Reviewed, dictated and finalized at [facility].
--- NOTE | 2020-03-21 14:31 | ECG_ITS ---
Measurements Intervals [place] Rate: 84 P: 76 [place]: 149 QRS: 74 QRSD: 74 T: 27 QT: 331 QTc: 392 Interpretive Statements SINUS RHYTHM BASELINE WANDER- I, II, III, AVR, AVF, V2-V6 NORMAL ECG Electronically Signed On 03-21-2020 16:02:15 CDT by Hakan Garza D.O.
[2020-03-21 14:44] LABS: Basophils Percent Auto 0.5 % (0.2-1.2); Eosinophils Absolute Auto 0.1 K/mm3 (0-0.3); Eosinophils Percent Auto 0.8 % (0-4.4); Hematocrit 38.9 % (37.0-47.0); Hemoglobin 12.5 g/dL (12.0-15.0); Immature Granulocyte Absolute 0.03 K/mm3 (0.00-0.031); Immature Granulocyte Percent A 0.5 % (0-0.5); Lymphocytes Absolute Auto 1.65 K/mm3 (0.9-3.2); Mean Corpuscular HGB Conc 32.1 g/dl (32-36); Mean Corpuscular Hemoglobin 32.5 pg (26-34); Mean Platelet Volume 11.4 fl (7.4-10.4); Monocytes Absolute Auto 0.4 K/mm3 (0.1-0.6); Monocytes Percent Auto 6.8 % (2.6-8.5); Neutrophils Absolute Auto 4.2 K/mm3 (1.3-6.7); Neutrophils Percent Auto 65.4 % (45.5-73.1); Platelet Count Result 245 k/mm3 (150-375); Red Blood Count 3.85 M/mm3 (4.2-5.4); Red Cell Distribution Width 17.2 % (11.5-14.5); White Blood Count 6.4 K/mm3 (4.5-10.0)
[2020-03-21 14:51] LABS: Add Urine Microscopic? YES; Appearance Urine Clear (Clear); Bacteria Urine Trace /hpf; Bilirubin Urine Negative (Negative); Blood Urine Negative (Negative); Color Urine Yellow (Yellow); Glucose Urine UA Negative (Negative); Hyaline Casts Urine 30-49 /lpf; Ketones Urine Negative (Negative); Leukocyte Esterase Ur Negative LEU/UL (Negative); Mucus Urine Rare /lpf; Nitrate Urine Negative (Negative); Protein Urine 2+ mg/dL (Negative); RBC Urine 0-2 /hpf (0-2); Specific Grav Ur 1.025 (1.001-1.035); Squamous Epithelial Cell Urine Rare /hpf (Few); Urobilinogen Urine Negative mg/dL (<2.0)
[2020-03-21 14:54] LABS: Alanine Aminotransferase 180 U/L (4-35); Albumin Level 4.1 g/dL (3.5-5.1); Alkaline Phosphatase 74 U/L (38-126); Aspartate Amino Transferase 92 U/L (14-36); Bilirubin,Total 0.7 mg/dL (0.2-1.3); Blood Urea Nitrogen 41 mg/dL (7-17); Calcium 9.7 mg/dL (8.4-10.2); Carbon Dioxide 11 mmol/L (22-30); Chloride 117 mmol/L (98-107); Estimated CRCL calculation 17 ml/min; Estimated Glomerular Filt Rate 26; Glucose 124 mg/dL (65-105); Sodium 141 mmol/L (137-145)
--- NOTE | 2020-03-21 15:36 | ED.WEAKNESS ---
HPI - Weakness General Chief complaint: Weakness Stated complaint: altered labs Time Seen by Provider: 03/21/20 15:10 History of Present Illness HPI Narrative: Patient presents with her daughter for generalized weakness and weight loss. She has known kidney failure, and does not want dialysis. Her renal doctor in [place] said that it was not so serious. She has no appetite and barely ate any lunch today. The daughter that is with her is a retired nurse, and has been out of town for 3 weeks for her father's . She returns to find her mother much thinner and very weak. They were at the PCP today, Dr. Casey, and he sent them in. The initial labs show a metabolic acidosis renal insufficiency, and elevated liver function. The patient has a history of hep C from a needlestick in the . Patient broke her shoulder 5 weeks ago, and has a pin in it that supposed to be removed next week. She still has significant pain from that fracture. She has trouble sleeping and has had sleeping pills in the past. She is also on clonazepam for a facial dystonia, which might be contributing to her fatigue. The patient has 2 grown granddaughters living with her. She does not smoke drink or do drugs. Related Data Home Medications Medication Instructions Recorded Confirmed mirtazapine 45 mg tablet 15 mg PO HS tablet 11/09/19 03/21/20 clonazepam 0.5 mg tablet 0.5 mg PO TID tablet 03/21/20 03/21/20 Allergies Allergy/AdvReac Type Severity Reaction Status Date / Time gabapentin Allergy Unknown Seizure Verified 03/21/20 14:18 Review of Systems Review of Systems: Narrative: CONSTITUTIONAL: Denies fever, chills, or sweats. EYES: Denies visual changes, redness, or discharge. ENT: Denies rhinorrhea, congestion, sore throat, or otalgia. CARDIOVASCULAR: Denies chest pain, palpitations, or edema. RESPIRATORY: Denies cough or dyspnea. GASTROINTESTINAL: Denies abdominal pain, nausea, vomiting, or diarrhea. GENITOURINARY: Denies dysuria or hematuria. SKIN: Denies rash or itching. MUSCULOSKELETAL: Denies back pain, joint pain, or myalgia. NEUROLOGIC: Denies headache, numbness, or weakness. PSYCHIATRIC: Denies anxiety or depression. She does have insomnia. [facility] Past Medical History Medical History Anemia With history of iron infusions. Anxiety Aortic valve regurgitation Echocardiogram in May 2018 showed normal left ventricular systolic function and size with mild concentric left ventricular hypertrophy and ejection fraction estimated at 60%. Mild aortic valve regurgitation noted with a valve area of 1.7 centimeters squared. Chronic kidney disease, stage 3 Baseline creatinine is 1.20. 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 She has been evaluated by a test inspection engineer Dr. camacho at [facility], and was told she had no active issues and needed no treatment. Hepatitis C Insomnia Left wrist fracture Migraine headache Orofacial dyskinesia With chronic dry mouth. Osteoporosis Protein, urine, abnormal presence Seizure History of seizure x2 after taking gabapentin. Surgical History Surgical History History of cholecystectomy History of repair of hiatal hernia History of surgery on left wrist ORIF left distal radius fracture in August [address] Hidalgo. Family History Family History Mother Diabetes mellitus Lung cancer Sibling Stomach cancer Sibling Non-Hodgkin lymphoma Social History Social History Social History: The patient is and lives in her own home in [place]. She designates her daughter, Liss Sheikh, as her surrogate decision maker and she wishes to be a full code. She is a lifelong nonsmoker and denies alcohol and drug use. Smoking status:
[2020-03-21] MEDS: SODIUM CHLORIDE 0.9% IV 1,000 ML 999 ML IV CONT (15:40)
[2020-03-21 16:26] LABS: Alveolar/Arterial O2 Gradient 25.6 mmHg; Base Excess ABG -12.9 mEq/l (+/-2.0); Fractional Inspired Oxygen 21 %; HCO3 ABG 11.2 mEq/l (22.0-26.0); Oxygen Saturation ABG 97.2 % (95.0-100.0); Oxyhemoglobin 96.3 % THb (90.0-100.0); PO2 FiO2 Ratio Arterial Blood 4.67 %; pH ABG 7.329 (7.350-7.450)
[2020-03-21 16:28] LABS: Device ROOM AIR; PCO2 ABG 21.8 mmHg (35.0-45.0); Site Drawn RIGHT BRACHIAL
[2020-03-21 16:41] LABS: NT Pro B Type Natriuretic Pept 957 PG/ML (5-100)
--- NOTE | 2020-03-21 19:45 | ADMGEN ---
This patient, Radha Saenz, was admitted to 2 Medical Room 251-. Patient/family oriented to hospital policies and general routines including ID bracelet, bed and alarms, visiting hours, pain management, procedures, bathroom and other care routines, personal items, smoking policy, room service/diet, and visiting hours. Valuables list has been completed. Information on how to activate the Rapid Response Team has been discussed. Patient/Family are encouraged to report perceived risks to care and to ask questions if they do not understand what they are told or what they should do.
--- NOTE | 2020-03-21 20:30 | PC.NURSE ---
PT GIVEN BOX LUNCH, STARTED WRETCHING, STATES I DO THIS ALL THE TIME WHEN I EAT. VOICES NO C/O NAUSEA
[2020-03-21] MEDS: CLONAZEPAM 0.5 MG TAB PO (23:20)
[2020-03-21] MEDS: MIRTAZAPINE 15 MG TABLET PO (23:20)
--- NOTE | 2020-03-21 23:22 | PM.IMHP ---
H&P: HPI History of Present Illness Chief complaint: CHF/metabolic acidosis/renal failure/COPD/weight l Narrative: Radha Saenz is a 79 year old female who recently had a left humerus fracture and is in a sling. Patient is coming in today for generalized weakness and weight loss. She is known to have chronic renal failure creatinine is typically around 1.2. The patient sees pressure supervisor and home but stated it was not see areas. She has had no appetite recently. The patient lives home alone. And her daughter was out of town for the last 3 weeks due to her father status. When she returned her mother was much thinner and very weak. She went to her her primary care doctor in the and her in here. The patient has a history of having hepatitis C which is an active according to the patient. The patient had hepatitis C from a needle stick in the s. Patient had fractured her left shoulder 5 weeks ago and has a pin in her left shoulder and is supposed to have it removed next week. We will to see the patient she was very irritated because she stated that she had been in the emergency room since 6:00 a.m. this morning has not had any of her medications. I saw Dr. Kimball briefly and explained that the patient was coming into the hospital. The patient has mild progression in scattered regions of reticular nodular airspace disease which could be chronic infectious process possibly TB or fungal infection.Like the patient followed up with pulmonology on 02/08/2020 due to an abnormal chest x-ray. However it looks like the visit was restricted to a telephone call due to the the covid 19 pandemic. Is recommended that the patient have a 6 month follow-up with a CT of the chest. Patient's creatinine is 1.9 today. Worse previously it was 0.9. Her bicarb is 11. Patient's arterial blood gases pH was 7.329 CO2 21.8. I did discuss these findings with my collaborative. No bicarb was advice at this time. Nephrology was consulted, patient is being admitted for dehydration acute renal failure. Date of service 03/21/2020 Review of Systems Review of Systems: All systems reviewed & are unremarkable except as noted in HPI and below Constitutional: Constitutional: Reports as per HPI and Reports no additional constitutional complaints Eyes: Eyes: Reports as per HPI and Reports no additional eye complaints ENT: Reports system reviewed and no additional complaints, except as documented and Reports Normal hearing present Cardiovascular: Cardiovascular: Reports no additional cardiovascular complaints Respiratory: Respiratory: Reports no additional respiratory complaints and Reports no additional respiratory complaints Gastrointestinal: Gastrointestinal: Reports as per HPI and Reports no additional gastrointestinal complaints Musculoskeletal: Musculoskeletal: Reports no additional musculoskeletal complaints Integumentary/Breasts: Skin/Breast: Reports system reviewed and no additional complaints, except as docu and Reports as per HPI Neurologic: Reports system reviewed and no additional complaints, except as documented, Reports as per HPI and Reports Normal hearing present Psychiatric: Psychiatric: Reports no additional psychiatric complaints and Reports as per HPI Endocrine: Endocrine: Reports no additional endocrine complaints Hematologic/Lymphatic: Hematologic/Lymphatic: Reports no additional hematologic/lymphatic complaints Allergic/Immunologic: Allergic/Immunologic: Reports no additional allergic/immunologic complaints [facility] Past Medical History Medical History (Updated 03/21/20 @ 23:36 by Rach Raphael NP) Anemia With history of iron infusions. Anxiety Aortic valve regurgitation Echocardiogram in May 2018 showed normal left ventricular systolic function and size with mild concentric left ventricular hypertrophy and ejection fraction estimated at 60%. Mild aortic valve regurgitation noted with a valve area of 1.7 centimeters squared. Chronic kidney disea
[2020-03-21] MEDS: SODIUM CHLORIDE 0.9% IV 1,000 ML 100 ML IV CONT (23:36)
[2020-03-22] VITALS (11 sets, daily range): BP systolic 138–151; BP diastolic 76–87; PULSE 61–81; RESP 16–20; TEMP 36.1–36.6; O2SAT 97–100; BMI 18.1
[2020-03-22 05:36] LABS: Alanine Aminotransferase 125 U/L (4-35); Alkaline Phosphatase 66 U/L (38-126); Aspartate Amino Transferase 50 U/L (14-36); Bilirubin,Total 0.4 mg/dL (0.2-1.3); Blood Urea Nitrogen 28 mg/dL (7-17); Calcium 8.3 mg/dL (8.4-10.2); Carbon Dioxide 15 mmol/L (22-30); Chloride 122 mmol/L (98-107); Estimated CRCL calculation 29 ml/min; Estimated Glomerular Filt Rate 48; Glucose 81 mg/dL (65-105); Magnesium 1.8 mg/dL (1.6-2.3); Potassium 4.2 mmol/L (3.4-5.0); Sodium 141 mmol/L (137-145)
[2020-03-22 05:40] LABS: Basophils Percent Auto 0.4 % (0.2-1.2); Eosinophils Absolute Auto 0.1 K/mm3 (0-0.3); Eosinophils Percent Auto 2.1 % (0-4.4); Hematocrit 32.8 % (37.0-47.0); Hemoglobin 10.5 g/dL (12.0-15.0); Immature Granulocyte Absolute 0.02 K/mm3 (0.00-0.031); Immature Granulocyte Percent A 0.4 % (0-0.5); Lymphocytes Absolute Auto 1.68 K/mm3 (0.9-3.2); Lymphocytes Percent Auto 32.6 % (18.3-44.2); Mean Corpuscular Hemoglobin 32.9 pg (26-34); Mean Corpuscular Volume 102.8 fl (80-100); Mean Platelet Volume 11.4 fl (7.4-10.4); Monocytes Absolute Auto 0.4 K/mm3 (0.1-0.6); Monocytes Percent Auto 7.4 % (2.6-8.5); Neutrophils Absolute Auto 2.9 K/mm3 (1.3-6.7); Neutrophils Percent Auto 57.1 % (45.5-73.1); Platelet Count Result 190 k/mm3 (150-375); Red Blood Count 3.19 M/mm3 (4.2-5.4); Red Cell Distribution Width 17.4 % (11.5-14.5); White Blood Count 5.2 K/mm3 (4.5-10.0)
[2020-03-22 06:11] LABS: Thyroid Stimulating Hormone Reflex 0.838 uIU/mL (0.465-4.68)
[2020-03-22] MEDS: SODIUM CHLORIDE 0.9% IV 1,000 ML 100 ML IV CONT (08:43)
--- NOTE | 2020-03-22 11:00 | PC.NURSE ---
spoke with daughter, Hayley ([phone]), and she agrees to bring megace and belsomra medications this evening 03/22 so patient can receive home medications.
[2020-03-22] MEDS: ACETAMINOPHEN 325 MG TABLET 650 MG PO (11:15)
[2020-03-22] MEDS: CLONAZEPAM 0.5 MG TAB 2 MG PO ×2 (11:15→17:27)
[2020-03-22] MEDS: LACTATED RINGERS 1,000 ML 50 ML IV CONT (15:19)
--- NOTE | 2020-03-22 16:28 | PM.CNNEP ---
Assessment and Plan Assessment and plan (1) ANN-MARIE (acute kidney injury): Code(s): N17.9 - Acute kidney failure, unspecified Status: Acute (2) Metabolic acidosis: Code(s): E87.2 - Acidosis Status: Acute (3) Generalized weakness: Code(s): R53.1 - Weakness Status: Acute (4) Poor appetite: Code(s): R63.0 - Anorexia Status: Acute Assessment and Plan: . (5) Anemia: Code(s): D64.9 - Anemia, unspecified Status: Chronic Assessment and Plan: . Additional Plan Radha had acute kidney injury/acute renal failure by her admission labs. Her creatinine has improved in the last 24 hours with just IVFs arguing her ANN-MARIE/ARF was due to volume depletion/dehydration. This was likely worsened by her continued use of her MELCHOR-I (lisinopril) and ongoing poor oral intake. Her kidney function has improved remarkably as noted by her labs this morning with both improvement in her BUN, creatinine, and metabolic acidosis. given this improvement in her renal function, I will hold off on a extensive workup and evaluation as it is my hope that her kidney function will continue to improve with continued conservative therapy. I will continue to follow patient with you while she remains hospitalized to make further recommendations during her hospital course. Thank you for allowing me to participate in the care this patient. History of Present Illness Reason for Consult Consult date: 03/22/20 Reason for consult: acute renal failure Chief Complaint Chief complaint: CHF/metabolic acidosis/renal failure/COPD/weight l History of Present Illness Narrative: The patient is a 79 year old female with a past medical history as outlined below who presented to [facility] ER with complaints of generalized weakness and weight loss. Apparently, over last three weeks, the patient has had poor oral intake. Her daughter usually checks and on her but she had been on a 10 on for the last three weeks and when she came back to see her mother, she appeared to be much more thinner in weaker than when she was last seen. Her history is further complicated by the fact that she had a recent injury to her left arm/shoulder (fracture) resulting in surgical intervention and plans follow up with Orthopedics. She went to see her primary care physician for the for mention symptoms who then referred her to the ER for further evaluation and therapy. Workup and evaluation in the emergency room demonstrated the a for mention weakness and weight loss but she was otherwise hemodynamically stable. Routine blood tests demonstrated a significant decline in her kidney function in association with a metabolic acidosis. Given the constellation of symptoms as mentioned above and the acute renal failure, she was admitted in the hospital for further evaluation and therapy. Renal consultation was requested due to her acute kidney injury/acute renal failure. From review of the patient's records, her baseline creatinine normally runs around 0.9-1.2 mg/dL and given her age, this would argue she probably has some mild renal insufficiency at baseline. With regard to risk factors for her acute decline in kidney function, she had the aforementioned poor oral intake for last week if not longer coupled with her continued use an MELCHOR-inhibitor. Aside from the aforementioned metabolic acidosis, she did not have any severe electrolyte abnormalities. Interestingly, since her admission, she has been receiving IV fluids and her kidney function has improved remarkably by labs done this morning. Currently, at the time of my visit, she appears to be doing reasonably well and working with physical and occupational therapy. Review of Systems Review of Systems: Narrative: As per HPI. [facility] Past Medical History Medical History (Updated 03/22/20 @ 16:34 by Melva Solis MD) Anemia With history of iron infusions. Anxiety Aortic valve r
--- NOTE | 2020-03-22 17:19 | PM.IMPN ---
Progress Note: A&P Assessment and Plan (1) ANN-MARIE (acute kidney injury): Code(s): N17.9 - Acute kidney failure, unspecified Status: Acute Assessment and Plan: Acute on chronic Nephrology has been consulted patient's baseline is typically 1.2 and is now 1.9. Patient has had a poor oral intake and appears to be dry. Creatinine this morning was 1.0 and BUN improved to 28. Will continue light IV hydration and monitoring renal function and electrolytes. (2) Metabolic acidosis: Code(s): E87.2 - Acidosis Status: Acute Assessment and Plan: Could be related to her acute renal failure. Her anion gap today was 14 which is within normal range. Her creatinine has improved so hopefully her electrolytes follow. Nephrology was consulted and appreciate their input (3) Anxiety: Code(s): F41.9 - Anxiety disorder, unspecified Status: Acute Assessment and Plan: Continue with Remeron. Patient is also on clonazepam which her daughter states is for her tardive dyskinesia history. When I evaluated the patient today she seems to have a little bit of slurred speech but is if she is overmedicated. I am going to decrease her clonazepam to 1 mg t.i.d. p.r.n. for tardive dyskinesia or anxiety. I will also consult Dr. Clancy who is her neurologist and who started her on the clonazepam for any further adjustments. (4) Fracture, humerus, proximal: Qualifiers: Encounter type: subsequent encounter Fracture type: closed Fracture morphology: other fracture Fracture alignment: displaced Laterality: left Fracture healing: with routine healing Qualified Code(s): S42.292D - Other displaced fracture of upper end of left humerus, subsequent encounter for fracture with routine healing Code(s): S42.209A - Unspecified fracture of upper end of unspecified humerus, initial encounter for closed fracture Status: Acute Assessment and Plan: Patient has a pin to her left shoulder and should have a removed within 1 week by the ortho doctor. He Will continue with pain control and monitoring at this time. There is not seem any trauma to her left arm. (5) Poor appetite: Code(s): R63.0 - Anorexia Status: Acute Assessment and Plan: Patient was started on Megace. Hydrate the patient for now. Dietary consult (6) Abnormal CT of the chest: Code(s): R93.89 - Abnormal findings on diagnostic imaging of other specified body structures Status: Acute Assessment and Plan: The patient has already discussed this with her bolt machine operator. CT Chest showed Mild progression in scattered regions of reticular nodular airspace disease which could be chronic infectious process, possibly TB or fungal infection. Chronic lingular atelectasis. Mild emphysema and hyperinflation. Dr. Kimball was consulted on the patient since she has followed her in the past. (7) Generalized weakness: Code(s): R53.1 - Weakness Status: Acute Assessment and Plan: Family states she has generalized weakness due to her poor appetite. Physical and occupational therapy have been ordered and will work with her during her hospitalization. (8) Anemia: Code(s): D64.9 - Anemia, unspecified Status: Chronic Assessment and Plan: Most likely secondary to acute on chronic CKD along with IV fluid hydration. H&H today was 10.5/32.8% Will continue monitoring. Transfuse as needed. No signs of acute bleeding. Time Spent With Patient Time with patient: 25 - 35 minutes Subjective Date/time seen: 03/22
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
[2020-03-22] MEDS: MIRTAZAPINE 15 MG TABLET PO (22:49)
[2020-03-22] MEDS: FAMOTIDINE 20 MG TABLET PO (22:49)
[2020-03-22] MEDS: CLONAZEPAM 0.5 MG TAB 1 MG PO (22:49)
[2020-03-23] VITALS (9 sets, daily range): BP systolic 124–148; BP diastolic 72–89; PULSE 67–78; RESP 16–21; TEMP 35.9–36.4; O2SAT 99–100
[2020-03-23 06:27] LABS: Hematocrit 33.9 % (37.0-47.0); Hemoglobin 10.9 g/dL (12.0-15.0); Mean Corpuscular HGB Conc 32.2 g/dl (32-36); Mean Corpuscular Hemoglobin 32.6 pg (26-34); Mean Corpuscular Volume 101.5 fl (80-100); Mean Platelet Volume 11.2 fl (7.4-10.4); Platelet Count Result 197 k/mm3 (150-375); Red Blood Count 3.34 M/mm3 (4.2-5.4); Red Cell Distribution Width 17.4 % (11.5-14.5); White Blood Count 5.7 K/mm3 (4.5-10.0)
[2020-03-23 06:43] LABS: Alanine Aminotransferase 86 U/L (4-35); Albumin Level 2.8 g/dL (3.5-5.1); Alkaline Phosphatase 60 U/L (38-126); Aspartate Amino Transferase 38 U/L (14-36); Bilirubin,Total 0.5 mg/dL (0.2-1.3); Blood Urea Nitrogen 14 mg/dL (7-17); Calcium 8.5 mg/dL (8.4-10.2); Carbon Dioxide 16 mmol/L (22-30); Chloride 118 mmol/L (98-107); Estimated CRCL calculation 44 ml/min; Estimated Glomerular Filt Rate > 60; Glucose 82 mg/dL (65-105); Magnesium 1.6 mg/dL (1.6-2.3); Phosphorus 2.3 mg/dL (2.5-4.5); Potassium 3.8 mmol/L (3.4-5.0); Sodium 139 mmol/L (137-145)
[2020-03-23] MEDS: polyethylene glycoL 3350 17 GM POWD.PACK PO (08:31)
[2020-03-23] MEDS: FAMOTIDINE 20 MG TABLET PO ×2 (08:31→20:22)
[2020-03-23] MEDS: MAGNESIUM SULF 2 GM/WATER 50ML 2 GM/50 ML BAG IVPB (09:44)
[2020-03-23] MEDS: CLONAZEPAM 0.5 MG TAB 1 MG PO ×2 (09:44→20:21)
[2020-03-23] MEDS: LACTATED RINGERS 1,000 ML 50 ML IV CONT (09:45)
[2020-03-23] MEDS: POTASSIUM PHOS/SODIUM PHOS 250 MG TABLET PO (09:46)
--- NOTE | 2020-03-23 10:58 | ECG_ITS ---
Measurements Intervals [place] Rate: 78 P: 57 MS: 151 QRS: 61 QRSD: 66 T: 34 QT: 354 QTc: 404 Interpretive Statements SINUS RHYTHM BASELINE WANDER- AVF, V6 NORMAL ECG Electronically Signed On 03-23-2020 12:10:50 CDT by Hakan Garza D.O.
--- NOTE | 2020-03-23 11:38 | CONS_ITS ---
DATE OF CONSULTATION: 03/21/2020 HISTORY OF PRESENT ILLNESS: A 79-year-old lady has been admitted to [facility] through the emergency room for the complaint of generalized weakness with weight loss. She carries the diagnoses of: 1. Chronic renal failure. 2. Congestive heart failure. 3. COPD. 4. Left humerus fracture for which she is in the sling. She usually runs her creatinine around 1.2. She was experiencing generalized weakness along with the weight loss. She is under the care of circular tank cooper. She was becoming anorexic. She lives in a home alone and her daughter was out of town for the last 3 weeks due to her father's status. She returned and her mother was very thin and extremely weak. She went to the primary care doctor with her. The patient has the history of having hepatitis, which was hepatitis C, which is an active condition according to the patient. She contacted for needlestick in the early . She fractured her left shoulder about 5 weeks ago with the pin in her left shoulder and supposed to have it removed next week. She was somewhat irritated when she came to the floor because she had been in the emergency room for long time. On x-ray of chest, she was noted to have scattered region of reticular nodular air space disease, it could be chronic infectious, possible TB versus fungus, for which she follows with her sharepoint administrator and seen on 02/08/2020, but that particular visit was not in person, was only a telephone call because of COVID-19 pandemic. She is supposed to have a followup CT of the chest in about 6 months. At the time of admission, her creatinine 1.9, which is worse than before, that was 0.9. Basket Hand Braider was consulted for that particular reason. In the past, the patient has ongoing history of: 1. Anemia for which she required iron infusions, anxiety, aortic valve regurgitation, history of echocardiogram in May 2018, which revealed mild concentric left ventricular hypertrophy with ejection fraction of 60% and mild aortic wall regurgitation. 2. Chronic kidney disease stage 3. 3. Esophageal stricture. 4. Hypertension. 5. Hepatitis C from the needlestick for which she is under the care of wheel cleaner, Dr. Harmon, at [facility]. 6. Left humerus fracture, seen by Dr. Pearson on 02/17/2020, replaced with the IM nailing. 7. Left wrist fracture. 8. Migraine headaches. 9. Orofacial dyskinesia. 10. Osteoporosis. 11. Seizure. She has undergone cholecystectomy, hiatal hernial repair, and the left wrist surgical repair in August [address] Hidalgo. SOCIAL HISTORY: She lives in her own home in [place] with her daughter being her surrogate decision maker. She does not smoke, does not drink. MEDICATIONS: At present, she is takin. Mirtazapine 15 mg at night. 2. Lisinopril 40 mg daily. 3. Clonazepam 0.5 mg t.i.d. 4. Megestrol 625 mg daily, liquid. 5. Belsomra 50 mg at night. ALLERGIES: SHE IS ALLERGIC TO GABAPENTIN. PHYSICAL EXAMINATION: VITAL SIGNS: Evaluation up until now has revealed her to be afebrile with pulse of 84, respirations 26, blood pressure 119/67. GENERAL: She is awake, alert, cooperative, in no obvious acute distress, recognized the physician immediately. Speech not dysphasic, not dysarthric, not dysphonic. HEENT: Head normocephalic with no cranial bruits. Ear, nose, throat examination normal. NECK: Supple with no cervical bruits. No thyromegaly. No lymphadenopathy. HEART: Regular. LUNGS: Clear. ABDOMEN: Soft. No organomegaly. NEUROLOGICAL: She is awake, alert, oriented. Speech not dysphasic, not dysarthric, not dysphonic. Pupils round, regular. Pan of vision full. Extraocular movements full. Face symmetrical. Tongue midline. Motor examination revealed her to have gen
--- NOTE | 2020-03-23 13:10 | PM.PNNEP ---
Progress Note: A&P Assessment and Plan (1) ANN-MARIE (acute kidney injury): Code(s): N17.9 - Acute kidney failure, unspecified Status: Acute Assessment and Plan: resolved due to volume depletion/dehydration worsened by concurrent MELCHOR-I use wean off IVFs once adequate oral intake (2) Metabolic acidosis: Code(s): E87.2 - Acidosis Status: Acute Assessment and Plan: due to #2 slow improvement noted follow trend (3) Generalized weakness: Code(s): R53.1 - Weakness Status: Acute Assessment and Plan: partially due to #1 #4 could be contributing as well PT/OT as tolerated (4) Anemia: Code(s): D64.9 - Anemia, unspecified Status: Chronic Assessment and Plan: chronic issue follow trend of H/H Not much else to add from renal perspective -- will follow from a distance. Subjective Date/time seen: 03/23/20 13:10 Appears to be doing reasonably well at the time of my visit; some issues/concerns regarding slurred speech so Neurology consulted at this time. Exam Narrative: Exam Narrative: General: Frail female in NAD Heart: normal S1 and S2; no rub Lungs: clear to auscultation Abdomen: soft, nontender, nondistended, positive bowel sounds Extremities: no cyanosis or clubbing; no edema Skin: warm and dry Objective Data Vital Signs Vital Signs: Vital Signs Temp Pulse Resp BP Pulse Ox 03/23/20 05:44 36.4 C 77 18 138/83 99 03/23/20 04:00 36.4 C 77 18 138/83 99 03/23/20 00:00 36.2 C L 77 20 148/89 H 99 03/22/20 22:00 36.4 C L 71 20 148/80 H 99 03/22/20 21:00 67 03/22/20 20:00 36.4 C L 71 20 148/80 H 99 03/22/20 16:00 36.1 C L 61 18 138/87 97 03/22/20 14:00 36.6 C 74 16 139/81 100 Intake/Output Intake/Output: Intake & Output 03/20/20 03/21/20 03/22/20 03/23/20 23:59 23:59 23:59 23:59 Intake Total 1000 2717 1307 Output Total 50 1050 200 Balance 950 1667 1107 Meds/Results Medications: Active Medications Generic Name Dose Route Start Last Admin Trade Name Freq PRN Reason Stop Dose Admin Acetaminophen 650 mg 03/22/20 10:17 03/22/20 11:15 Tylenol Tablet PO 650 mg Q4H PRN Administration Mild Pain (1-3) or Fever Clonazepam 1 mg 03/22/20 17:35 03/23/20 09:44 Klonopin Tablet PO 1 mg TID PRN Administration Anxiety and tardive dyskinesia Famotidine 20 mg 03/23/20 09:00 03/23/20 08:31 Pepcid PO 20 mg Q12HR ERICK Administration Lactated Ringer's 1,000 mls @ 50 mls/hr 03/22/20 13:15 03/23/20 09:45 Lr - Lactated Ringers Iv IV CONT 50 mls/hr .Q20H ERICK Administration Mirtazapine 15 mg 03/21/20 22:35 03/22/20 22:49 Remeron PO 15 mg HS ERICK Administration Non-Formulary Medication 625 mg 03/22/20 09:00 Megestrol [Megace Es] PO 04/21/20 09:01 DAILY ERICK Non-Formulary Medication 15 mg 03/22/20 21:00 Suvorexant [Belsomra] PO 04/21/20 21:01 HS ERICK Polyethylene Glycol 17 gm 03/23/20 09:00 03/23/20 08:31 Miralax PO 17 gm QAM ERICK Administration Radiology Results: ITS Impressions Chest/Abdomen/Pelvis CT 03/21/20 16:16 IMPRESSION: 1. Mild progression in scattered regions of reticular nodular airspace disease which could be chronic infectious process, possibly TB or fungal infection. 2. Chronic lingular atelectasis. 3. Mild emphysema and hyperinflation. 4. Chronic, surgical changes. Renal Ultrasound 03/22/20 07:51 IMPRESSION: No renal mass lesion or hydronephrosis is detected sonographically Labs Labs: Laboratory Tests 03/23/20 06:05 03/23/20 06:05 Microbiology 03/21/20 14:34 Urine Catheterized Urine Culture - Final
--- NOTE | 2020-03-23 13:33 | PM.IMPN ---
Progress Note: A&P Assessment and Plan (1) ANN-MARIE (acute kidney injury): Code(s): N17.9 - Acute kidney failure, unspecified Status: Acute Assessment and Plan: Acute on chronic Nephrology has been consulted patient's baseline is typically 1.2 and is now 1.9. Patient has had a poor oral intake and appears to be dry. Creatinine this morning was 0.7 and BUN improved to 14. Renal ultrasound was normal. Will continue light IV hydration and monitoring renal function and electrolytes. (2) Metabolic acidosis: Code(s): E87.2 - Acidosis Status: Acute Assessment and Plan: Could be related to her acute renal failure and hyperchloremia. Her anion gap today was 8 which is within normal range. Her creatinine and electrolytes have improved today but her chloride is still elevated 118. I will discontinue IV fluids at this time. Nephrology was consulted and appreciate their input (3) Anxiety: Code(s): F41.9 - Anxiety disorder, unspecified Status: Acute Assessment and Plan: Continue with Remeron. Patient is also on clonazepam which her daughter states is for her tardive dyskinesia history. When I evaluated the patient today she seems to have a little bit of slurred speech but is if she is overmedicated. I am going to decrease her clonazepam to 1 mg t.i.d. p.r.n. for tardive dyskinesia or anxiety. I will also consult Dr. Okeefe who is her neurologist and who started her on the clonazepam for any further adjustments. (4) Fracture, humerus, proximal: Qualifiers: Encounter type: subsequent encounter Fracture type: closed Fracture morphology: other fracture Fracture alignment: displaced Laterality: left Fracture healing: with routine healing Qualified Code(s): S42.292D - Other displaced fracture of upper end of left humerus, subsequent encounter for fracture with routine healing Code(s): S42.209A - Unspecified fracture of upper end of unspecified humerus, initial encounter for closed fracture Status: Acute Assessment and Plan: Patient has a pin to her left shoulder and should have a removed within 1 week by the ortho doctor. He Will continue with pain control and monitoring at this time. There is not seem any trauma to her left arm. (5) Poor appetite: Code(s): R63.0 - Anorexia Status: Acute Assessment and Plan: Patient was started on Megace. Hydrate the patient for now. Dietary consult (6) Abnormal CT of the chest: Code(s): R93.89 - Abnormal findings on diagnostic imaging of other specified body structures Status: Acute Assessment and Plan: The patient has already discussed this with her night manager. CT Chest showed Mild progression in scattered regions of reticular nodular airspace disease which could be chronic infectious process, possibly TB or fungal infection. Chronic lingular atelectasis. Mild emphysema and hyperinflation. Dr. Kimball was consulted on the patient since she has followed her in the past. (7) Generalized weakness: Code(s): R53.1 - Weakness Status: Acute Assessment and Plan: Family states she has generalized weakness due to her poor appetite. Physical and occupational therapy have been ordered and will work with her during her hospitalization. (8) Anemia: Code(s): D64.9 - Anemia, unspecified Status: Chronic Assessment and Plan: Most likely secondary to acute on chronic CKD along with IV fluid hydration. H&H today was 10.9/33%. Will continue monitoring. Transfuse as needed. No signs of acute bleeding.
--- NOTE | 2020-03-23 13:39 | PCDIET ---
Nutrition Follow-Up & consult for poor appetite complete: Underweight related to inadequate energy intake prior to admission as evidenced by BMI of 18.1, patient at 86% of ideal body weight. Patient to consume 50% of meals and supplements. Goal:Goal has been met. Continue with current goal. Pt current nutrition is heart healthy+compact BID Nutrition recommendation: Agree and increased compact to TID due to pt liking and drinking it Last recorded weight is 49.442 kg. Bowel Motility: Labs Reviewed:Protein 6.0, Albumin 2.8, Phosphorus 2.3, AST 38 ALT 86 Meds Noted:Remeron, Miralax Additional Notes: Seeing pt today for f/u and due to md consult for appetite and wt loss. Pt believes her wt has been steady and states her appetite is better. Over the last four meals she has taken in 60%. She is liking and drinking Ensure compact. Increased to TID. One Ensure compact provides 220 kcal, 9 g protein, 32g CHO, 26 essential vitamins and minerals, and is an excellent source of plant based omega 3 fatty acids ALA. I would recommend holding Megace at this time due to improved oral intake, steady wt, and remeron intake which can increase weight gain. We will follow PO intake and wt every five days.
[2020-03-23] MEDS: ACETAMINOPHEN 325 MG TABLET 650 MG PO (13:59)
[2020-03-23 15:30] LABS: Folic Acid > 20.0 ng/mL (2.76->20)
[2020-03-23] MEDS: MIRTAZAPINE 15 MG TABLET PO (20:21)
[2020-03-24] VITALS: PULSE 70
[2020-03-24 04:00] VITALS: PULSE 67
[2020-03-24 06:00] VITALS: BP 152/77; PULSE 74; RESP 21; TEMP 36.3; O2SAT 100
[2020-03-24 08:00] VITALS: PULSE 66
[2020-03-24] MEDS: LACTATED RINGERS 1,000 ML 50 ML IV CONT (08:01)
[2020-03-24] MEDS: ACETAMINOPHEN 325 MG TABLET 650 MG PO (08:02)
[2020-03-24] MEDS: FAMOTIDINE 20 MG TABLET PO (08:02)
[2020-03-24] MEDS: CLONAZEPAM 0.5 MG TAB 1 MG PO (08:03)
[2020-03-24 09:23] LABS: Hematocrit 31.5 % (37.0-47.0); Hemoglobin 10.4 g/dL (12.0-15.0); Mean Corpuscular Hemoglobin 32.8 pg (26-34); Mean Corpuscular Volume 99.4 fl (80-100); Mean Platelet Volume 10.8 fl (7.4-10.4); Platelet Count Result 224 k/mm3 (150-375); Red Blood Count 3.17 M/mm3 (4.2-5.4); Red Cell Distribution Width 17.1 % (11.5-14.5); White Blood Count 5.1 K/mm3 (4.5-10.0)
[2020-03-24 09:39] LABS: Albumin Level 2.9 g/dL (3.5-5.1); Blood Urea Nitrogen 10 mg/dL (7-17); Calcium 8.2 mg/dL (8.4-10.2); Carbon Dioxide 21 mmol/L (22-30); Chloride 113 mmol/L (98-107); Estimated CRCL calculation 44 ml/min; Estimated Glomerular Filt Rate > 60; Glucose 85 mg/dL (65-105); Potassium 3.4 mmol/L (3.4-5.0); Sodium 139 mmol/L (137-145)
[2020-03-24 09:40] LABS: Magnesium 1.9 mg/dL (1.6-2.3)
[2020-03-24] MEDS: POTASSIUM CHLORIDE 20 MEQ TABLET 40 MEQ PO (11:36)
[2020-03-24 12:00] VITALS: PULSE 77
--- NOTE | 2020-03-24 12:22 | WPDNEUROPN ---
Progress Note: A&P Assessment and Plan (1) Hypomagnesemia: Code(s): E83.42 - Hypomagnesemia Status: Acute (2) LFT elevation: Code(s): R79.89 - Other specified abnormal findings of blood chemistry Status: Acute (3) Hypophosphatasia: Code(s): E83.39 - Other disorders of phosphorus metabolism Status: Acute (4) Irregular cardiac rhythm: Code(s): I49.9 - Cardiac arrhythmia, unspecified Status: Acute (5) Anemia: Code(s): D64.9 - Anemia, unspecified Status: Chronic (6) Generalized weakness: Code(s): R53.1 - Weakness Status: Acute (7) ANN-MARIE (acute kidney injury): Code(s): N17.9 - Acute kidney failure, unspecified Status: Acute (8) Metabolic acidosis: Code(s): E87.2 - Acidosis Status: Acute (9) Hep C w/o coma, chronic: Code(s): B18.2 - Chronic viral hepatitis C Status: Acute (10) Chronic renal insufficiency: Qualifiers: Chronic kidney disease stage: unspecified stage Qualified Code(s): N18.9 - Chronic kidney disease, unspecified Code(s): N18.9 - Chronic kidney disease, unspecified Status: Acute (11) CHF with unknown LVEF: Code(s): I50.9 - Heart failure, unspecified Status: Acute (12) Abnormal weight loss: Code(s): R63.4 - Abnormal weight loss Status: Acute (13) COPD (chronic obstructive pulmonary disease): Qualifiers: COPD type: unspecified COPD Qualified Code(s): J44.9 - Chronic obstructive pulmonary disease, unspecified Code(s): J44.9 - Chronic obstructive pulmonary disease, unspecified Status: Acute (14) Hepatitis C: Qualifiers: Viral hepatitis chronicity: chronic Hepatic coma status: without hepatic coma Qualified Code(s): B18.2 - Chronic viral hepatitis C Code(s): B19.20 - Unspecified viral hepatitis C without hepatic coma Status: Acute (15) Protein, urine, abnormal presence: Qualifiers: Proteinuria type: unspecified Qualified Code(s): R80.9 - Proteinuria, unspecified Code(s): R80.9 - Proteinuria, unspecified Status: Acute (16) Poor appetite: Code(s): R63.0 - Anorexia Status: Acute (17) Hyperkalemia: Code(s): E87.5 - Hyperkalemia Status: Acute (18) Fracture, humerus, proximal: Qualifiers: Encounter type: subsequent encounter Fracture type: closed Fracture morphology: other fracture Fracture alignment: displaced Laterality: left Fracture healing: with routine healing Qualified Code(s): S42.292D - Other displaced fracture of upper end of left humerus, subsequent encounter for fracture with routine healing Code(s): S42.209A - Unspecified fracture of upper end of unspecified humerus, initial encounter for closed fracture Status: Acute (19) Anxiety: Code(s): F41.9 - Anxiety disorder, unspecified Status: Acute (20) Chronic kidney disease, stage 3: Code(s): N18.3 - Chronic kidney disease, stage 3 (moderate) Status: Acute (21) Fracture of shoulder: Qualifiers: Encounter type: initial encounter Fracture type: closed Laterality: left Qualified Code(s): S42.92XA - Fracture of left shoulder girdle, part unspecified, initial encounter for closed fracture Code(s): S42.90XA - Fracture of unspecified shoulder girdle, part unspecified, initial encounter for closed fracture Status: Acute (22) Age-related osteoporosis without current pathological fracture: Code(s): M81.0 - Age-related osteoporosis without current pathological fracture Status: Acute (23) Aortic valve stenosis: Code(s): I35.0 - Nonrheumatic aortic (valve) stenosis Status: Acute (24) Attention-deficit hyperactivity disorder, unspecified type: Code(s): F90.9 - Attention-deficit hyperactivity disorder, unspecified type Status: Acute (25) Chronic viral hepatitis: Code(s
--- NOTE | 2020-03-24 12:30 | PM.DS ---
DS: Diagnosis Admitting Diagnosis Admitting Diagnosis: Acidosis Discharge Diagnosis (1) ANN-MARIE (acute kidney injury): Code(s): N17.9 - Acute kidney failure, unspecified Status: Acute Assessment and Plan: Acute on chronic Nephrology has been consulted patient's baseline is typically 1.2 and is now 1.9. Patient has had a poor oral intake and appears to be dry. Creatinine this morning was 0.7 and BUN improved to 14. Renal ultrasound was normal. Creatinine is is at baseline. (2) Metabolic acidosis: Code(s): E87.2 - Acidosis Status: Acute Assessment and Plan: Could be related to her acute renal failure and hyperchloremia. Her anion gap today was within normal range. Her creatinine and electrolytes have improved today but her chloride is still elevated 113. Nephrology was consulted and does not feel further workup is needed at this time. (3) Anxiety: Code(s): F41.9 - Anxiety disorder, unspecified Status: Acute Assessment and Plan: Continue with Remeron. Patient is also on clonazepam which her daughter states is for her tardive dyskinesia history. When I evaluated the patient today she seems to have a little bit of slurred speech but is if she is overmedicated. I decreased her clonazepam to 1 mg t.i.d. p.r.n. for tardive dyskinesia or anxiety. Will have the patient follow-up with Dr. Okeefe neurologist as an outpatient who started her on the clonazepam for any further adjustments. (4) Fracture, humerus, proximal: Qualifiers: Encounter type: subsequent encounter Fracture alignment: displaced Fracture healing: with routine healing Fracture morphology: other fracture Fracture type: closed Laterality: left Qualified Code(s): S42.292D - Other displaced fracture of upper end of left humerus, subsequent encounter for fracture with routine healing Code(s): S42.209A - Unspecified fracture of upper end of unspecified humerus, initial encounter for closed fracture Status: Acute Assessment and Plan: Patient has a pin to her left shoulder and should have a removed within 1 week by the ortho doctor. Will continue with pain control and monitoring at this time. There is not seem any trauma to her left arm. (5) Poor appetite: Code(s): R63.0 - Anorexia Status: Acute Assessment and Plan: Patient was started on Megace. Hydrate the patient for now. Dietary consult (6) Abnormal CT of the chest: Code(s): R93.89 - Abnormal findings on diagnostic imaging of other specified body structures Status: Acute Assessment and Plan: The patient has already discussed this with her store deli manager. CT Chest showed Mild progression in scattered regions of reticular nodular airspace disease which could be chronic infectious process, possibly TB or fungal infection. Chronic lingular atelectasis. Mild emphysema and hyperinflation. Dr. Kimball was consulted and evaluated the patient and feels that her CT shows chronic changes and patient not have any respiratory symptoms at this time. She will follow-up with the patient in the office for further evaluation and monitoring. (7) Generalized weakness: Code(s): R53.1 - Weakness Status: Acute Assessment and Plan: Family states she has generalized weakness due to her poor appetite. Physical and occupational therapy has discontinued working with them since she did so well and is independent. (8) Anemia: Code(s): D64.9 - Anemia, unspecified Status: Chronic Assessment and Plan: Most likely secondary to acute on chronic CKD harlan
[2020-03-24 13:36] VITALS: BP 125/69; PULSE 77; RESP 18; TEMP 36.3; O2SAT 96
== END 2020-03-24 05:25 | disposition home or self-care (01) | DRG 683 ==
LOC: ANHED 18:16 → ANH2MED 18:36
PROVIDERS: Nurse Practitioner; Admitting Provider Internal Medicine; Emergency Provider Emergency Medicine; PCP Family Medicine; Visit Provider Physician Assistant
DX: N17.9 Acute kidney failure, unspecified (principal); E87.2 Acidosis; I13.0 Hypertensive heart and chronic kidney disease with heart failure and stage 1 through stage 4 chronic kidney disease, or unspecified chronic kidney disease; E46 Unspecified protein-calorie malnutrition; Z68.1 Body mass index [BMI] 19.9 or less, adult; N18.3 Chronic kidney disease, stage 3 (moderate); I50.9 Heart failure, unspecified; D63.1 Anemia in chronic kidney disease; E83.39 Other disorders of phosphorus metabolism; E86.0 Dehydration; E87.5 Hyperkalemia; E83.42 Hypomagnesemia; G24.01 Drug induced subacute dyskinesia; F41.9 Anxiety disorder, unspecified; J43.9 Emphysema, unspecified; R93.89 Abnormal findings on diagnostic imaging of other specified body structures; R53.1 Weakness; M81.0 Age-related osteoporosis without current pathological fracture; I49.9 Cardiac arrhythmia, unspecified; R79.89 Other specified abnormal findings of blood chemistry; B18.2 Chronic viral hepatitis C; Z66 Do not resuscitate; S42.292D Other displaced fracture of upper end of left humerus, subsequent encounter for fracture with routine healing; Z79.899 Other long term (current) drug therapy
CPT/HCPCS: 36415; 36600; 51701; 70551; 71250; 74176; 76775; 80053; 80069; 81001; 82607; 82746; 82805; 83735; 83880; 84439; 84443; 85025; 85027; 86592; 87086; 87522; 93005; 96360; 97161; 97165; 99285; A9270; J3475; J7030; J7120

== ENCOUNTER 2020-03-31 11:01 | Outpatient (CLI) | payer MEDICARE, BC, SELFPAY ==
[2020-03-31 11:59] LABS: Blood Urea Nitrogen 20 mg/dL (7-17); Calcium 9.4 mg/dL (8.4-10.2); Carbon Dioxide 25 mmol/L (22-30); Chloride 104 mmol/L (98-107); Estimated Glomerular Filt Rate 53; Glucose 92 mg/dL (65-105); Potassium 4.5 mmol/L (3.4-5.0); Sodium 137 mmol/L (137-145)
== END 2020-03-31 11:02 | disposition home or self-care (01) ==
PROVIDERS: PCP Family Medicine; Visit Provider Physician Assistant
DX: N17.9 Acute kidney failure, unspecified (principal); N18.3 Chronic kidney disease, stage 3 (moderate); E87.2 Acidosis
CPT/HCPCS: 36415; 80048

== ENCOUNTER 2020-04-07 13:43 | Outpatient (CLI) | payer MEDICARE, BC, SELFPAY ==
[2020-04-07 14:42] LABS: Hematocrit 33.7 % (37.0-47.0); Hemoglobin 10.8 g/dL (12.0-15.0); Mean Corpuscular Hemoglobin 33.1 pg (26-34); Mean Corpuscular Volume 103.4 fl (80-100); Mean Platelet Volume 10.9 fl (7.4-10.4); Platelet Count Result 447 k/mm3 (150-375); Red Blood Count 3.26 M/mm3 (4.2-5.4); White Blood Count 8.3 K/mm3 (4.5-10.0)
== END 2020-04-07 13:44 | disposition home or self-care (01) ==
PROVIDERS: PCP Family Medicine; Visit Provider Nurse Practitioner Family
DX: D64.9 Anemia, unspecified (principal)
CPT/HCPCS: 36415; 85027

== ENCOUNTER 2020-04-13 09:49 | Outpatient (CLI) | payer MEDICARE, BC, SELFPAY ==
[2020-04-13 11:57] LABS: Hepatitis B Surface Antigen Negative (Negative)
[2020-04-13 12:46] LABS: Amphetamine Screen Urine Negative (Negative); Barbiturate Screen Urine Negative (Negative); Benzodiazepines Screen Urine Negative (Negative); Cannabinoid Screen Urine Negative (Negative); Cocaine Screen Urine Negative (Negative); Methadone Screen Urine Negative (Negative); Opiate Screen Urine Negative (Negative); Phencyclidine Screen Urine Negative (Negative)
[2020-04-13 12:47] LABS: Hepatitis B Surface Anti Res Negative
[2020-04-13 13:09] LABS: INR 0.9; Prothrombin Time 12.2 Seconds (11.1-14.7)
[2020-04-16 02:34] LABS: Hepatitis B Core Ab Total Nonreactive (Nonreactive)
[2020-04-25 18:17] LABS: ALT 25 U/L (6-29); Alpha-2-Macroglobulin 359 mg/dL (106-279); Apolipoprotein A1 156 mg/dL (101-198); Fibrosis Score 0.54; Fibrosis Stage F2; GGT 99 U/L (3-65); Haptoglobin 295 mg/dL (43-212); Necroinflammat Act Grade A0; Total Bilirubin 0.4 mg/dL (0.2-1.2)
== END 2020-04-13 09:50 | disposition home or self-care (01) ==
PROVIDERS: Internal Medicine Gastroenterology; PCP Family Medicine; Visit Provider Nurse Practitioner Family
DX: B18.2 Chronic viral hepatitis C (principal); A31.0 Pulmonary mycobacterial infection; E87.2 Acidosis; R79.89 Other specified abnormal findings of blood chemistry
CPT/HCPCS: 36415; 80307; 81596; 85610; 86606; 86698; 86704; 86706; 87340

== ENCOUNTER 2020-04-18 00:11 | Outpatient (CLI) | payer MEDICARE, BC, SELFPAY ==
[2020-04-19 12:59] LABS: SARS-CoV-2 RNA PCR Negative
== END 2020-04-18 00:12 | disposition home or self-care (01) ==
LOC: ANHCOVIDDT 00:11
PROVIDERS: PCP Family Medicine; Visit Provider Orthopaedic Surgery
DX: R11.10 Vomiting, unspecified (principal); R50.9 Fever, unspecified; R51 Headache; Z20.828 Contact with and (suspected) exposure to other viral communicable diseases
CPT/HCPCS: 87635; C9803; U0003

== ENCOUNTER 2020-04-19 09:30 | Outpatient (CLI) | payer MEDICARE, BC, SELFPAY ==
[2020-04-19 17:33] LABS: SARS-CoV-2 RNA PCR Negative
== END 2020-04-19 09:31 ==
LOC: ANHCOVIDDT 05-24 11:53
PROVIDERS: PCP Family Medicine; Visit Provider Orthopaedic Surgery
DX: Z01.812 Encounter for preprocedural laboratory examination (principal); Z11.59 Encounter for screening for other viral diseases
CPT/HCPCS: 87635; C9803; U0003

== ENCOUNTER 2020-04-20 01:37 | Day surgery (SDC) | payer MEDICARE, BC, SELFPAY ==
[2020-04-13 13:48] VITALS: BMI 21.5
[2020-04-20] VITALS (7 sets, daily range): BP systolic 121–145; BP diastolic 67–95; PULSE 71–84; RESP 13–25; TEMP 36.4–36.9; O2SAT 96–100
--- NOTE | ~2020-04-20 | XR_ITS ---
XR surgery orthopedic 04/20/2020 08:56 Left shoulder hardware removal TECHNIQUE: Fluoroscopy used during shoulder hardware removal performed by [Kevin Pearson MD] on 04/20/2020. Fluoroscopy time is 80 seconds. with 5 fluoroscopic images captured. ]DAP is 4.7 mGym2 . ] FINDINGS: Serial images demonstrate removal of intramedullary juan j and 2 proximal screws seen on prior examination. Correlate with procedure note. IMPRESSION: Fluoroscopy used during left shoulder hardware removal.. There is a comminuted proximal l eft humeral fracture with displacement. Please refer to procedural report for details. Reviewed, dictated and finalized at location A. IMPRESSION: Fluoroscopy used during left shoulder hardware removal.. There is a comminuted proximal left humeral fracture with displacement. Please refer to p rocedural report for details.
[2020-04-20] MEDS: LACTATED RINGERS 1,000 ML 30 ML IV CONT ×2 (06:25→09:20)
[2020-04-20] MEDS: IBUPROFEN IV 800 MG/200 ML 800 MG/200 ML BAG 400 MG IVPB (06:34)
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
--- NOTE | 2020-04-20 07:13 | WPDHPUPDATE1 ---
History and Physical Update Update Date/Time: 04/20/20 07:13 History and Physical has been reviewed, including an updated exam of the patient. There are NO changes in the patient's condition. Risks, benefits, and alternatives have been discussed and questions answered. Patient agrees to proceed with procedure.
[2020-04-20] MEDS: ceFAZolin 2 GM/D5W 50 ML 2 GM/50 ML BAG IVPB (07:30)
--- NOTE | 2020-04-20 09:10 | P.OP_ITS ---
Procedure Note - Detailed Date of procedure: 04/20/20 Pre-op diagnosis: Left Arm Painful Hardware/ Left Rotator Cuff Tear Post-op diagnosis: same Procedure performed: Repair left rotator cuff, removal of hardware Description of procedure: Indications: Patient is a 79-year-old woman who is 9 weeks status post open reduction internal fixation left proximal humerus fracture. Patient has gone on to heal the fracture but has prominence of the hardware impinging on the shoulder joint as well as evidence of rotator cuff tear on exam. She presents now for operative treatment. Indicated for removal of the hardware to preserve the shoulder joint. Rotator cuff repair for aid with function of the shoulder. What was done: Patient identified in the preoperative holding. Informed consent given. Operative extremity marked. Patient received intravenous antibiotics. Patient brought to the operating room where underwent general anesthetic by anesthesia team. Positioned In a beach chair position on operating room table. care was taken to secure the head neck and pad the bony prominences. Time-out performed confirming the patient, site of the surgery and the plan. Left shoulder prepped draped usual sterile surgical fashion using a ChloraPrep skin solution. Anterolateral longitudinal incision made from the anterolateral acromion. Fifteen blade knife used for incision. Bovie cautery of subcutaneous tissue and fascia. Deltoid split in line with the incision. Rotator cuff tear noted. Anterior to this the proximal nail was able to be palpated. Retractors were placed and the distraction device was applied to the proximal humerus nail. Small stab incision was made lateral and blunt dissection was carried down to the proximal locking screws. These were removed. Bone was noted to be somewhat osteoporotic in the humeral head. Stab incision made distally and the blunt dissection to the distal locking screw which was removed. This then allowed removal of the nail. The intramedullary canal was thoroughly irrigated and suctioned. Rotator cuff tear had a cuff of tissue left at the insertion. The supraspinatus which had retracted was freed up from adhesions with a Quincy elevator. This was then brought in repaired with 0 Vicryl interrupted suture to the insertion. Good repair was noted. Wounds thoroughly irrigated antibiotic solution. Deep deltoid fascia was repaired with 2 Vicryl interrupted suture. Subcutaneous tissue repaired with 3 0 Monocryl interrupted suture in the skin repaired with a 3 Monocryl running subcuticular stitch. Stab incisions for the screw removal repaired with 3 0 Monocryl interrupted suture. Sterile dressing applied. The patient was then woken from anesthesia, extubated and taken to the recovery room in stable condition. All sponge, needle, instrument counts were correct at the end of the case. Implants: implants removed: Biomet humeral nail with 4.5 mm proximal locking screws x2 proximal and 4.5 mm locking screw x1 distally Anesthesia: GETA Surgeon: Kevin Pearson MD Medical Billing And Coding Instructor: 1st paperhanger assistant Estimated blood loss (mL): 10 Drains: No Packing: No Pathology: none sent Complications: None Condition: stable Disposition: PACU
--- NOTE | 2020-04-20 09:48 | SUR.PHASEI ---
updated Hayley (daughter) [phone]
--- NOTE | 2020-04-20 10:58 | SUR.PHASEII ---
DAUGHTER UPDATED WHEN PT ARRIVED TO OP.
== END 2020-04-20 10:57 | disposition home or self-care (01) ==
PROVIDERS: PCP Family Medicine; Visit Provider Orthopaedic Surgery
PROC: (CPT 20694; principal; 2020-04-20 07:30)
PROC: (CPT 23420; 2020-04-20 07:30)
DX: T84.84XA Pain due to internal orthopedic prosthetic devices, implants and grafts, initial encounter (principal); M79.622 Pain in left upper arm; S42.202D Unspecified fracture of upper end of left humerus, subsequent encounter for fracture with routine healing; M75.102 Unspecified rotator cuff tear or rupture of left shoulder, not specified as traumatic; B18.2 Chronic viral hepatitis C; I12.9 Hypertensive chronic kidney disease with stage 1 through stage 4 chronic kidney disease, or unspecified chronic kidney disease; N18.3 Chronic kidney disease, stage 3 (moderate); D64.9 Anemia, unspecified; I35.1 Nonrheumatic aortic (valve) insufficiency; M81.0 Age-related osteoporosis without current pathological fracture; G47.00 Insomnia, unspecified
CPT/HCPCS: 23410; 20680; A4565; J0330; J0690; J1100; J1741; J2250; J2405; J2704; J3010; J7120

== ENCOUNTER 2020-04-24 07:29 | Outpatient (CLI) | payer MEDICARE, BC, SELFPAY ==
[2020-04-24 07:56] LABS: Hematocrit 38.2 % (37.0-47.0); Hemoglobin 12.2 g/dL (12.0-15.0); Mean Corpuscular HGB Conc 31.9 g/dl (32-36); Mean Corpuscular Hemoglobin 33.9 pg (26-34); Mean Corpuscular Volume 106.1 fl (80-100); Mean Platelet Volume 11.1 fl (7.4-10.4); Platelet Count Result 326 k/mm3 (150-375); Red Cell Distribution Width 15.7 % (11.5-14.5); White Blood Count 7.7 K/mm3 (4.5-10.0)
[2020-04-24 08:05] LABS: Blood Urea Nitrogen 38 mg/dL (7-17); Calcium 9.3 mg/dL (8.4-10.2); Carbon Dioxide 25 mmol/L (22-30); Chloride 106 mmol/L (98-107); Estimated Glomerular Filt Rate 53; Glucose 97 mg/dL (65-105); Potassium 4.6 mmol/L (3.4-5.0); Sodium 136 mmol/L (137-145)
[2020-04-26 20:18] LABS: NIL 0.01 IU/mL; Quantiferon TB Plus, 1T NEGATIVE (NEGATIVE)
== END 2020-04-24 07:30 | disposition home or self-care (01) ==
PROVIDERS: Nurse Practitioner Family; PCP Family Medicine; Visit Provider Physician Assistant Medical
DX: A31.0 Pulmonary mycobacterial infection (principal); N28.9 Disorder of kidney and ureter, unspecified; D64.9 Anemia, unspecified
CPT/HCPCS: 36415; 80048; 85027; 86480

== ENCOUNTER 2020-05-05 07:25 | Outpatient (CLI) | payer MEDICARE, BC, SELFPAY ==
[2020-05-11 19:54] LABS: Hepatitis C Viral RNA PCR 3660000 IU/mL
[2020-05-16 16:28] LABS: HCV Genotype, LiPA 3
== END 2020-05-05 07:26 | disposition home or self-care (01) ==
PROVIDERS: PCP Family Medicine; Visit Provider Internal Medicine Gastroenterology
DX: B18.2 Chronic viral hepatitis C (principal)
CPT/HCPCS: 36415; 87522

== ENCOUNTER 2020-05-26 07:45 | Outpatient (CLI) | payer MEDICARE, BC, SELFPAY ==
[2020-05-26 08:06] LABS: Mean Corpuscular HGB Conc 33.3 g/dl (32-36); Mean Corpuscular Hemoglobin 33.9 pg (26-34); Mean Corpuscular Volume 101.8 fl (80-100); Mean Platelet Volume 10.3 fl (7.4-10.4); Platelet Count Result 318 k/mm3 (150-375); Red Blood Count 3.83 M/mm3 (4.2-5.4); Red Cell Distribution Width 14.1 % (11.5-14.5); White Blood Count 10.1 K/mm3 (4.5-10.0)
[2020-05-26 08:20] LABS: Blood Urea Nitrogen 39 mg/dL (7-17); Calcium 9.2 mg/dL (8.4-10.2); Carbon Dioxide 27 mmol/L (22-30); Chloride 105 mmol/L (98-107); Estimated Glomerular Filt Rate 36; Glucose 88 mg/dL (65-105); Potassium 4.8 mmol/L (3.4-5.0); Sodium 138 mmol/L (137-145)
== END 2020-05-26 07:46 | disposition home or self-care (01) ==
PROVIDERS: Physician Assistant Medical; PCP Family Medicine; Visit Provider Nurse Practitioner Family
DX: R53.83 Other fatigue (principal); N18.3 Chronic kidney disease, stage 3 (moderate)
CPT/HCPCS: 36415; 80048; 85027

== ENCOUNTER 2020-06-14 16:17 | Outpatient (CLI) | payer MEDICARE, BC, SELFPAY ==
[2020-06-14 16:36] LABS: Hemoglobin 12.1 g/dL (12.0-15.0); Mean Corpuscular HGB Conc 33.6 g/dl (32-36); Mean Corpuscular Volume 101.1 fl (80-100); Mean Platelet Volume 10.5 fl (7.4-10.4); Platelet Count Result 281 k/mm3 (150-375); Red Blood Count 3.56 M/mm3 (4.2-5.4); Red Cell Distribution Width 13.9 % (11.5-14.5); White Blood Count 5.8 K/mm3 (4.5-10.0)
[2020-06-14 16:40] LABS: Add Urine Microscopic? YES; Appearance Urine Clear (Clear); Bacteria Urine Trace /hpf; Bilirubin Urine Negative (Negative); Blood Urine Negative (Negative); Color Urine Straw (Yellow); Glucose Urine UA Negative (Negative); Ketones Urine Negative (Negative); Leukocyte Esterase Ur Trace LEU/UL (NEGATIVE); Nitrate Urine Negative (Negative); Protein Urine Negative (Negative); Specific Grav Ur 1.006 (1.001-1.035); Squamous Epithelial Cell Urine Rare /hpf (Few); Urobilinogen Urine Negative mg/dL (<2.0); WBC Urine 0-3 /hpf (0-3)
[2020-06-14 17:01] LABS: Anion Gap 12.3 mmol/L (7-16); Blood Urea Nitrogen 12 mg/dL (7-17); Calcium 9.2 mg/dL (8.4-10.2); Carbon Dioxide 22 mmol/L (22-30); Chloride 101 mmol/L (98-107); Estimated Glomerular Filt Rate 53; Glucose 84 mg/dL (65-105); Potassium 4.3 mmol/L (3.4-5.0); Sodium 131 mmol/L (137-145)
[2020-06-14 17:09] LABS: NT Pro B Type Natriuretic Pept 581 PG/ML (5-100)
== END 2020-06-14 16:18 | disposition home or self-care (01) ==
PROVIDERS: Physician Assistant Medical; PCP Family Medicine; Visit Provider Family Medicine
DX: M79.89 Other specified soft tissue disorders (principal); R06.02 Shortness of breath; N39.0 Urinary tract infection, site not specified
CPT/HCPCS: 36415; 80048; 81001; 83880; 85027; 87086

== ENCOUNTER 2020-06-30 07:27 | Outpatient (CLI) | payer MEDICARE, BC, SELFPAY ==
[2020-06-30 07:44] LABS: Hematocrit 36.1 % (37.0-47.0); Hemoglobin 12.2 g/dL (12.0-15.0); Mean Corpuscular HGB Conc 33.8 g/dl (32-36); Mean Corpuscular Hemoglobin 34.1 pg (26-34); Mean Corpuscular Volume 100.8 fl (80-100); Platelet Count Result 344 k/mm3 (150-375); Red Blood Count 3.58 M/mm3 (4.2-5.4); Red Cell Distribution Width 12.2 % (11.5-14.5); White Blood Count 6.3 K/mm3 (4.5-10.0)
[2020-06-30 08:03] LABS: NT Pro B Type Natriuretic Pept 236 PG/ML (5-100)
[2020-06-30 08:16] LABS: Blood Urea Nitrogen 14 mg/dL (7-17); Calcium 9.4 mg/dL (8.4-10.2); Carbon Dioxide 23 mmol/L (22-30); Chloride 101 mmol/L (98-107); Estimated Glomerular Filt Rate 53; Glucose 86 mg/dL (65-105); Potassium 4.5 mmol/L (3.4-5.0)
[2020-06-30 14:33] LABS: Anion Gap 8 mmol/L (8-16)
[2020-06-30 14:39] LABS: Sodium 132 mmol/L (137-145)
== END 2020-06-30 07:28 | disposition home or self-care (01) ==
LOC: ANHLAB 07:29
PROVIDERS: PCP Family Medicine; Visit Provider Physician Assistant Medical
DX: I50.9 Heart failure, unspecified (principal); D64.9 Anemia, unspecified
CPT/HCPCS: 36415; 80048; 83880; 85027

== ENCOUNTER 2020-06-30 08:57 | Emergency (ER) | payer MEDICARE, BC, SELFPAY ==
[2020-06-30 09:06] VITALS: BP 138/76; PULSE 90; RESP 15; TEMP 37.3; O2SAT 98
[2020-06-30 09:17] VITALS: BP 110/64; PULSE 85; RESP 20; O2SAT 100
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
[2020-06-30 09:22] LABS: Basophils Percent Auto 0.6 % (0.2-1.2); Eosinophils Absolute Auto 0.1 K/mm3 (0-0.3); Eosinophils Percent Auto 1.3 % (0-4.4); Hemoglobin 11.8 g/dL (12.0-15.0); Immature Granulocyte Absolute 0.03 K/mm3 (0.00-0.031); Immature Granulocyte Percent A 0.4 % (0-0.5); Lymphocytes Absolute Auto 1.84 K/mm3 (0.9-3.2); Lymphocytes Percent Auto 27.4 % (18.3-44.2); Mean Corpuscular HGB Conc 33.7 g/dl (32-36); Mean Corpuscular Hemoglobin 33.8 pg (26-34); Mean Corpuscular Volume 100.3 fl (80-100); Monocytes Absolute Auto 0.7 K/mm3 (0.1-0.6); Monocytes Percent Auto 10.9 % (2.6-8.5); Neutrophils Percent Auto 59.4 % (45.5-73.1); Platelet Count Result 347 k/mm3 (150-375); Red Blood Count 3.49 M/mm3 (4.2-5.4); Red Cell Distribution Width 12.4 % (11.5-14.5); White Blood Count 6.7 K/mm3 (4.5-10.0)
[2020-06-30 09:33] LABS: Alanine Aminotransferase 44 U/L (4-35); Albumin Level 3.8 g/dL (3.5-5.1); Alkaline Phosphatase 57 U/L (38-126); Anion Gap 10 mmol/L (8-16); Aspartate Amino Transferase 62 U/L (14-36); Bilirubin,Total 0.7 mg/dL (0.2-1.3); Blood Urea Nitrogen 14 mg/dL (7-17); Calcium 8.9 mg/dL (8.4-10.2); Carbon Dioxide 21 mmol/L (22-30); Chloride 99 mmol/L (98-107); Estimated CRCL calculation 31 ml/min; Estimated Glomerular Filt Rate 53; Glucose 105 mg/dL (65-105); Potassium 3.9 mmol/L (3.4-5.0); Sodium 130 mmol/L (137-145)
[2020-06-30 10:53] VITALS: BP 118/75; PULSE 72; RESP 16; O2SAT 100
== END 2020-06-30 10:54 | disposition home or self-care (01) ==
PROVIDERS: Emergency Provider Emergency Medicine; PCP Family Medicine
DX: E87.1 Hypo-osmolality and hyponatremia (principal); I12.9 Hypertensive chronic kidney disease with stage 1 through stage 4 chronic kidney disease, or unspecified chronic kidney disease; N18.3 Chronic kidney disease, stage 3 (moderate); G24.4 Idiopathic orofacial dystonia; D64.9 Anemia, unspecified; M81.0 Age-related osteoporosis without current pathological fracture; R68.2 Dry mouth, unspecified; I35.1 Nonrheumatic aortic (valve) insufficiency; Z86.19 Personal history of other infectious and parasitic diseases; Z77.22 Contact with and (suspected) exposure to environmental tobacco smoke (acute) (chronic); Z66 Do not resuscitate
CPT/HCPCS: 36415; 80048; 80053; 83880; 85025; 85027; 99283

== ENCOUNTER 2020-07-10 11:37 | Outpatient (CLI) | payer MEDICARE, BC, SELFPAY ==
[2020-07-10 12:18] LABS: Hematocrit 34.5 % (37.0-47.0); Hemoglobin 11.6 g/dL (12.0-15.0); Mean Corpuscular HGB Conc 33.6 g/dl (32-36); Mean Corpuscular Hemoglobin 33.5 pg (26-34); Mean Corpuscular Volume 99.7 fl (80-100); Mean Platelet Volume 10.3 fl (7.4-10.4); Platelet Count Result 278 k/mm3 (150-375); Red Blood Count 3.46 M/mm3 (4.2-5.4); Red Cell Distribution Width 11.9 % (11.5-14.5); White Blood Count 6.2 K/mm3 (4.5-10.0)
[2020-07-10 12:21] LABS: Add Urine Microscopic? NO; Appearance Urine Clear (Clear); Bilirubin Urine Negative (Negative); Blood Urine Negative (Negative); Color Urine Yellow (Yellow); Glucose Urine UA Negative (Negative); Ketones Urine Negative (Negative); Leukocyte Esterase Ur Negative LEU/UL (Negative); Nitrate Urine Negative (Negative); Protein Urine Negative (Negative); Urobilinogen Urine Negative mg/dL (<2.0)
[2020-07-10 12:31] LABS: Anion Gap 6 mmol/L (8-16); Blood Urea Nitrogen 11 mg/dL (7-17); Calcium 9.4 mg/dL (8.4-10.2); Carbon Dioxide 24 mmol/L (22-30); Chloride 98 mmol/L (98-107); Estimated Glomerular Filt Rate > 60; Glucose 87 mg/dL (65-105); Phosphorus 3.4 mg/dL (2.5-4.5); Potassium 4.3 mmol/L (3.4-5.0); Sodium 128 mmol/L (137-145)
[2020-07-10 12:32] LABS: Creatinine Urine 19.4 mg/dL; Total Protein Urine Random 13 mg/dL
[2020-07-10 12:38] LABS: Specific Grav Ur 1.004 (1.001-1.035)
[2020-07-10 12:39] LABS: Complement C3 84 mg/dL (88-165)
[2020-07-10 12:43] LABS: Parathyroid Intact 39.5 pg/mL (7.5-53.5)
[2020-07-10 13:06] LABS: Erythrocyte Sedimentation Rate 59 mm/hr (0-20)
[2020-07-10 13:14] LABS: Vitamin D 25 Hydroxy 79.2 ng/mL
[2020-07-12 13:52] LABS: Complement Total CH50 59 U/mL (31-60)
[2020-07-12 14:59] LABS: Kappa\\Lambda Light Chains 1.23 (0.26-1.65); Lambda Light Chain 31.4 mg/L (5.7-26.3)
== END 2020-07-10 11:38 | disposition home or self-care (01) ==
PROVIDERS: PCP Family Medicine; Referring Provider Family Medicine; Visit Provider Internal Medicine Nephrology
DX: N18.3 Chronic kidney disease, stage 3 (moderate) (principal)
CPT/HCPCS: 36415; 80069; 81003; 82306; 82570; 83883; 83970; 84156; 85027; 85652; 86038; 86160; 86162; 86334; 86335

== ENCOUNTER 2020-07-26 12:42 | Outpatient (CLI) | payer MEDICARE, BC, SELFPAY ==
--- NOTE | ~2020-07-26 | CT_ITS ---
EXAMINATION:CT chest high resolution wo co DATE: 07/26/2020 13:05 INDICATION: Interstitial lung disease. Abnormal findings on diagnostic imaging. TECHNIQUE: Computed tomography (CT) of the chest was performed without intravenous contrast. Automate d exposure control and iterative reconstruction technique were employed. The dose-length product (DLP ) was 129.37 mGy-cm. COMPARISON: Chest CT 03/21/2020, 09/24/2019. FINDINGS: There is mild scarring at the lung apices. There is bronchiectasis in lingula with airspace opacities and volume loss, consistent with scarring. There are scattered centrilobular nodules and t ree-in-bud opacities in clusters in the upper lobes, right middle lobe, and left lower lobe. There is a 14 mm nodule in left lower lobe, stable from 09/24/2019. No pleural effusion. The heart size is no rmal. There are coronary artery calcifications. No pericardial effusion. There are changes of fundopl ication of the stomach with the wrap above the diaphragm. There are changes of cholecystectomy. Calci fications in the spleen are consistent with old granulomatous disease. There is kyphosis and mild spo ndylosis of thoracic spine. There are chronic compression fractures of T4 and T5. IMPRESSION: 1. Stable diffuse lung disease, likely chronic infection. Reviewed, dictated and finalized at location A.
== END 2020-07-26 12:43 | disposition home or self-care (01) ==
PROVIDERS: PCP Family Medicine; Visit Provider Nurse Practitioner Family
DX: R93.89 Abnormal findings on diagnostic imaging of other specified body structures (principal)
CPT/HCPCS: 71250

== ENCOUNTER 2020-08-01 07:00 | Outpatient (CLI) | payer MEDICARE, BC, SELFPAY ==
[2020-08-01 07:46] LABS: Albumin Level 3.5 g/dL (3.5-5.1); Anion Gap 5 mmol/L (8-16); Blood Urea Nitrogen 19 mg/dL (7-17); Calcium 9.3 mg/dL (8.4-10.2); Carbon Dioxide 24 mmol/L (22-30); Chloride 104 mmol/L (98-107); Estimated Glomerular Filt Rate 48; Glucose 92 mg/dL (65-105); Phosphorus 4.2 mg/dL (2.5-4.5); Potassium 4.6 mmol/L (3.4-5.0); Sodium 133 mmol/L (137-145)
[2020-08-01 08:18] LABS: Cortisol Random 6.94 ug/dL
[2020-08-04 06:34] LABS: Albumin 3.3 g/dL (3.8-4.8); Alpha 1 Globulin 0.3 g/dL (0.2-0.3); Beta 1 Globulin 0.4 g/dL (0.4-0.6); Gamma Globulin 0.6 g/dL (0.8-1.7); Protein, Total 5.9 g/dL (6.1-8.1)
[2020-08-05 05:11] LABS: Osmolality, Urine 386 mOsm/kg (50-1200)
== END 2020-08-01 07:01 | disposition home or self-care (01) ==
PROVIDERS: PCP Family Medicine; Referring Provider Family Medicine; Visit Provider Internal Medicine Nephrology
DX: E87.1 Hypo-osmolality and hyponatremia (principal)
CPT/HCPCS: 36415; 80069; 82533; 83930; 83935; 84155; 84165; 84300; 84443

== ENCOUNTER 2020-08-08 08:38 | Outpatient (CLI) | payer MEDICARE, BC, SELFPAY ==
[2020-08-08 10:54] LABS: Cortisol Baseline 0.79 ug/dL
== END 2020-08-08 08:39 | disposition home or self-care (01) ==
LOC: ANHVASCINF 08:47 → ANHLAB 12:47
PROVIDERS: PCP Family Medicine; Visit Provider Internal Medicine Nephrology
DX: E87.1 Hypo-osmolality and hyponatremia (principal)
CPT/HCPCS: 36415; 82533; 96372; J0834

== ENCOUNTER 2020-09-18 13:26 | Outpatient (CLI) | payer MEDICARE, BC, SELFPAY ==
--- NOTE | 2020-09-18 13:42 | ECHO_ITS ---
Patient Info Name: Radha Saenz Age: 80 years : 1940 Gender: Female Ht: 65 in Wt: 122 lbs BSA: 1.59 m2 HR: 70 bpm BP: 116 / 82 mmHg Heart Rhythm: Sinus Rhythm Technical Quality: Good Exam Date: 09/18/2020 1:55 PM Exam Location: [facility] Patient Status: Outpatient Admit Date: 09/18/2020 Staff Ordering Physician: Tania Serna PAC Irish Moss Gatherer: Kwaku Smith RDCS Attending Provider: Tania Serna Referring Physician: Daphne RICO; Exam Type: CA echo doppler color flow Study Info Indications R01.1 - Cardiac murmur, unspecified Complete two-dimensional, color flow and Doppler transthoracic echocardiogram is performed. Strain analysis performed. History/Risk Factors Murmur; HTN. Summary 1. Complete two-dimensional, color flow and Doppler transthoracic echocardiogram is performed. 2. Left ventricular systolic function is normal, estimated at 60-65%. 3. There is moderate asymmetric septal increased left ventricular wall thickness. 4. The left ventricular diastolic function is grade I diastolic dysfunction. 5. Global longitudinal strain is mildly elevated at -16 %. 6. There is trace mitral valve regurgitation. 7. There is no aortic valve stenosis. 8. There is moderate tricuspid valve regurgitation. 9. No pulmonary hypertension, estimated pulmonary arterial systolic pressure is 33 mmHg. Left Ventricle Left ventricular chamber dimension is normal. Left ventricular systolic function is normal, estimated at 60-65%. There is moderate asymmetric septal increased left ventricular wall thickness. The left ventricular diastolic function is grade I diastolic dysfunction. Global longitudinal strain is mildly elevated at -16 %. Right Ventricle Right ventricular chamber dimension is normal. Right ventricular systolic function is normal. Left Atria Left atrial chamber dimension is normal. Right Atria Right atrial chamber dimension is normal. Aortic Valve The aortic valve is probable trileaflet. There is mild aortic valve sclerosis. There is no aortic valve stenosis. There is mild aortic valve regurgitation. Pulmonic Valve The pulmonic valve is not well visualized. There is trace pulmonic regurgitation. Mitral Valve The mitral valve has normal leaflets. There is trace mitral valve regurgitation. The mitral valve annulus is mildly calcified. Tricuspid Valve The tricuspid valve leaflets are normal. There is moderate tricuspid valve regurgitation. No pulmonary hypertension, estimated pulmonary arterial systolic pressure is 33 mmHg. Pericardium/Pleural The pericardium appears normal. There is no pericardial effusion. Inferior Vena Cava Normal inferior vena cava with >50% collapse upon inspiration consistent with normal right atrial pressure, 5 mmHg. Aorta The aortic root size at the sinus of Valsalva is normal. Left Ventricular Outflow Tract Name Value Normal LVOT 2D LVOT Diameter 2.0 cm LVOT Doppler LVOT Peak Gradient 9 mmHg LVOT Mean Gradient 5 mmHg LVOT VTI
== END 2020-09-18 13:27 | disposition home or self-care (01) ==
PROVIDERS: PCP Family Medicine; Visit Provider Physician Assistant Medical
DX: M79.89 Other specified soft tissue disorders (principal); R01.1 Cardiac murmur, unspecified; I36.1 Nonrheumatic tricuspid (valve) insufficiency
CPT/HCPCS: 93306

== ENCOUNTER 2020-10-02 07:52 | Outpatient (CLI) | payer MEDICARE, BC, SELFPAY ==
[2020-10-02 08:29] LABS: Albumin Level 3.5 g/dL (3.5-5.1); Anion Gap 6 mmol/L (8-16); Blood Urea Nitrogen 11 mg/dL (7-17); Calcium 9.1 mg/dL (8.4-10.2); Carbon Dioxide 28 mmol/L (22-30); Chloride 95 mmol/L (98-107); Estimated Glomerular Filt Rate 48; Glucose 83 mg/dL (65-105); Sodium 129 mmol/L (137-145)
[2020-10-02 08:36] LABS: Creatinine Urine 81.9 mg/dL; Total Protein Urine Random 12 mg/dL
== END 2020-10-02 07:53 | disposition home or self-care (01) ==
PROVIDERS: PCP Family Medicine; Referring Provider Family Medicine; Visit Provider Internal Medicine Nephrology
DX: N18.30 Chronic kidney disease, stage 3 unspecified (principal)
CPT/HCPCS: 36415; 80069; 82570; 84156

== ENCOUNTER 2020-10-24 07:34 | Outpatient (CLI) | payer MEDICARE, BC, SELFPAY ==
[2020-10-24 08:38] LABS: Basophils Percent Auto 0.7 % (0.2-1.2); Eosinophils Absolute Auto 0.5 K/mm3 (0-0.3); Eosinophils Percent Auto 8.4 % (0-4.4); Hematocrit 37.8 % (37.0-47.0); Hemoglobin 12.4 g/dL (12.0-15.0); Immature Granulocyte Absolute 0.01 K/mm3 (0.00-0.031); Immature Granulocyte Percent A 0.2 % (0-0.5); Lymphocytes Absolute Auto 1.77 K/mm3 (0.9-3.2); Lymphocytes Percent Auto 32.5 % (18.3-44.2); Mean Corpuscular HGB Conc 32.8 g/dl (32-36); Mean Corpuscular Hemoglobin 30.5 pg (26-34); Mean Corpuscular Volume 92.9 fl (80-100); Mean Platelet Volume 10.7 fl (7.4-10.4); Monocytes Absolute Auto 0.5 K/mm3 (0.1-0.6); Monocytes Percent Auto 8.6 % (2.6-8.5); Neutrophils Absolute Auto 2.7 K/mm3 (1.3-6.7); Neutrophils Percent Auto 49.6 % (45.5-73.1); Platelet Count Result 273 k/mm3 (150-375); Red Blood Count 4.07 M/mm3 (4.2-5.4); Red Cell Distribution Width 12.7 % (11.5-14.5); White Blood Count 5.5 K/mm3 (4.5-10.0)
[2020-10-24 08:56] LABS: Potassium 4.2 mmol/L (3.4-5.0)
[2020-10-24 09:10] LABS: Alanine Aminotransferase 15 U/L (4-35); Albumin Level 3.9 g/dL (3.5-5.1); Alkaline Phosphatase 63 U/L (38-126); Anion Gap 6 mmol/L (8-16); Aspartate Amino Transferase 29 U/L (14-36); Bilirubin,Total 0.7 mg/dL (0.2-1.3); Blood Urea Nitrogen 15 mg/dL (7-17); Calcium 9.6 mg/dL (8.4-10.2); Carbon Dioxide 26 mmol/L (22-30); Chloride 107 mmol/L (98-107); Estimated Glomerular Filt Rate 53; Glucose 87 mg/dL (65-105); Sodium 139 mmol/L (137-145)
[2020-10-24 09:30] LABS: Free T4 Free Thyroxine 0.91 ng/mL (0.78-2.19)
[2020-10-24 10:11] LABS: Folic Acid > 20.0 ng/mL (2.76->20); Vitamin B12 > 1000.0 pg/mL (239-931)
[2020-10-27 05:32] LABS: Thyroid Peroxidase Antibodies <1 IU/mL (<9)
[2020-10-27 07:20] LABS: Triiodothyronine T3 Free 3.4 pg/mL (2.3-4.2)
[2020-10-27 14:56] LABS: Thyroid Stimulating Immunoglob <89 % baseline (<140)
[2020-11-01 13:17] LABS: Adrenocorticotropic Hormone 23 pg/mL (6-50)
== END 2020-10-24 07:35 | disposition home or self-care (01) ==
LOC: ANHLAB 07:37
PROVIDERS: PCP Family Medicine
DX: R94.7 Abnormal results of other endocrine function studies (principal); R53.83 Other fatigue
CPT/HCPCS: 36415; 80053; 82024; 82533; 82607; 82746; 84439; 84443; 84445; 84481; 85025; 86376

== ENCOUNTER 2020-11-23 07:43 | Outpatient (CLI) | payer MEDICARE, BC, SELFPAY ==
[2020-11-28 05:17] LABS: Adrenocorticotropic Hormone 38 pg/mL (6-50)
== END 2020-11-23 07:44 | disposition home or self-care (01) ==
PROVIDERS: PCP Family Medicine; Visit Provider Nurse Practitioner Family
DX: R94.7 Abnormal results of other endocrine function studies (principal)
CPT/HCPCS: 36415; 82024; 82533; 96372; J0834

== ENCOUNTER 2021-01-10 04:21 | Emergency (ER) | payer MEDICARE, BC, SELFPAY ==
--- NOTE | ~2021-01-10 | XR_ITS ---
EXAMINATION: XR knee LT 3V DATE: 01/10/2021 05:05 INDICATION: Left knee pain. TECHNIQUE: 3 views of left knee were obtained. COMPARISON: Left knee radiographs 08/27/2012 FINDINGS: There is a comminuted fracture of patella in near-anatomic alignment. There is mild tricomp artmental osteoarthritis. There is chondrocalcinosis of the menisci. There is ossification of proxima l medial collateral ligament. There is a large knee joint effusion. Prepatellar bursitis is noted. IMPRESSION: 1. Comminuted fracture of patella. 2. Mild left knee osteoarthritis. 3. Large knee joint effusion. Reviewed, dictated and finalized at location A. DEVELOPER
[2021-01-10 04:23] VITALS: BP 162/85; PULSE 75; RESP 16; TEMP 36.8; O2SAT 95
--- NOTE | 2021-01-10 04:45 | ED.FALL ---
HPI - Fall General Chief Complaint: Fall Stated Complaint: glf 1100 now swelling left knee Time Seen by Provider: 01/10/21 04:29 Source: patient Mode of arrival: ambulatory Limitations: no limitations History of Present Illness HPI Narrative: Patient is an 80-year-old female complaining of left knee pain, 8 out of 10, dull aching, after she tripped and fell on the sidewalk last night. Patient states she was able to get up and ambulate after the fall. Patient denies any head, neck, chest, pelvis, hip or any other extremity pain/injury. Related Data Home Medications Medication Instructions Recorded Confirmed pantoprazole 40 mg PO 06/30/20 11/29/20 Allergies Allergy/AdvReac Type Severity Reaction Status Date / Time gabapentin Allergy Severe Seizure Verified 11/29/20 09:48 Review of Systems Review of Systems: All systems reviewed & are unremarkable except as noted in HPI and below Constitutional: Constitutional: Denies body ache(s), Denies chills, Denies excessive sweating, Denies fatigue, Denies fever(s), Denies headache(s), Denies lethargy, Denies malaise, Denies weakness and Denies weight loss Eyes: Eyes: Denies blurry vision, Denies change in vision and Denies loss of vision ENT: Denies dizziness, Denies ear discharge, Denies headache(s), Denies lip swelling, Denies epistaxis, Denies nasal congestion, Denies neck pain, Denies throat swelling and Denies tongue swelling Cardiovascular: Cardiovascular: Denies chest pain, Denies chest pain at rest, Denies chest pain with activity, Denies diaphoresis, Denies rapid heart rate, Denies edema, Denies irregular heart rhythm, Denies lightheadedness, Denies palpitations, Denies dyspnea and Denies dyspnea on exertion Respiratory: Respiratory: Denies chest congestion, Denies cough, Denies hemoptysis, Denies dyspnea and Denies dyspnea on exertion Gastrointestinal: Gastrointestinal: Denies abdominal pain, Denies melena, Denies hematochezia, Denies diarrhea, Denies nausea, Denies vomiting and Denies hematemesis Musculoskeletal: Musculoskeletal: Denies abnormal gait, Denies deformity, Denies limited range of motion, Denies neck pain and Denies numbness Comments: Negative for any deformity. Left knee abrasion, mild swelling, pain on range of motion, full range of motion, neurovascular is intact bilateral lower extremities Neurologic: Denies Abnormal speech present, Denies abnormal gait, Denies confusion, Denies dizziness, Denies headache(s), Denies focal weakness, Denies loss of vision, Denies numbness, Denies Other visual disturbances, Denies Sensory deficit (Neuro) and Denies weakness Psychiatric: Psychiatric: Denies confusion, Denies depression, Denies auditory hallucinations, Denies homicidal ideation and Denies suicidal ideation Endocrine: Endocrine: Denies cold intolerance, Denies excessive sweating, Denies fatigue, Denies heat intolerance and Denies palpitations Hematologic/Lymphatic: Hematologic/Lymphatic: Denies easy bleeding and Denies easy bruising Allergic/Immunologic: Allergic/Immunologic: Denies lip swelling, Denies throat swelling and Denies tongue swelling [facility] Past Medical History Medical History (Updated 01/10/21 @ 06:09 by Bruno Onofre MD) ANN-MARIE (acute kidney injury) Anemia With history of iron infusions. Anxiety Aortic valve regurgitation Echocardiogram in May 2018 showed normal left ventricular systolic function and size with mild concentric left ventricular hypertrophy and ejection fraction estimated at 60%. Mild aortic valve regurgitation noted with a valve area of 1.7 centimeters squared. BMI between 19-24,adult Chronic kidney disease, stage 3 Baseline creatinine is 1.20. 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 She has been evaluated by a administrative coordinator Dr. camacho at [facility], and was told she had no active issues and needed no treatment. Hepatitis C Inactive Insomnia Left humeral frac
[2021-01-10] MEDS: HYDROcodone/acetaminophen (*CRX) 5-325 MG TABLET 1 TAB PO (04:50)
[2021-01-10] MEDS: KETOROLAC 30 MG/ML VIAL (*BKC) IM (04:52)
[2021-01-10 05:57] VITALS: BP 172/83; PULSE 77; RESP 20; O2SAT 94
[2021-01-10 06:47] VITALS: BP 161/86; PULSE 68; RESP 18; O2SAT 97
== END 2021-01-10 06:50 | disposition home or self-care (01) ==
PROVIDERS: Emergency Provider Emergency Medicine; PCP Family Medicine
DX: S82.045A Nondisplaced comminuted fracture of left patella, initial encounter for closed fracture (principal); I35.1 Nonrheumatic aortic (valve) insufficiency; N18.30 Chronic kidney disease, stage 3 unspecified; I12.9 Hypertensive chronic kidney disease with stage 1 through stage 4 chronic kidney disease, or unspecified chronic kidney disease; Z86.19 Personal history of other infectious and parasitic diseases; M81.0 Age-related osteoporosis without current pathological fracture; G24.4 Idiopathic orofacial dystonia; R68.2 Dry mouth, unspecified; Z66 Do not resuscitate; Z77.22 Contact with and (suspected) exposure to environmental tobacco smoke (acute) (chronic); W01.0XXA Fall on same level from slipping, tripping and stumbling without subsequent striking against object, initial encounter
CPT/HCPCS: 73140; 73562; 96372; 99284; A9270; J1885

== ENCOUNTER 2021-02-06 09:27 | Outpatient (CLI) | payer MEDICARE, BC, SELFPAY ==
[2021-02-06 09:57] LABS: Anion Gap 3 mmol/L (8-16); Blood Urea Nitrogen 15 mg/dL (7-17); Calcium 9.6 mg/dL (8.4-10.2); Carbon Dioxide 31 mmol/L (22-30); Chloride 106 mmol/L (98-107); Estimated Glomerular Filt Rate 53; Glucose 83 mg/dL (65-105); Phosphorus 3.5 mg/dL (2.5-4.5); Potassium 3.8 mmol/L (3.4-5.0); Sodium 140 mmol/L (137-145)
[2021-02-06 10:10] LABS: Add Urine Microscopic? YES; Appearance Urine Cloudy (Clear); Bacteria Urine Trace /hpf; Bilirubin Urine Negative (Negative); Blood Urine Negative (Negative); Color Urine Yellow (Yellow); Glucose Urine UA Negative (Negative); Ketones Urine Negative (Negative); Leukocyte Esterase Ur Trace LEU/UL (Negative); Mucus Urine Rare /lpf; Nitrate Urine Negative (Negative); Protein Urine 1+ mg/dL (Negative); RBC Urine 0-2 /hpf (0-2); Specific Grav Ur 1.014 (1.001-1.035); Squamous Epithelial Cell Urine Occasional /hpf (Few); Urobilinogen Urine Negative mg/dL (<2.0); WBC Urine 0-3 /hpf
[2021-02-06 10:11] LABS: Creatinine Urine 124.8 mg/dL; Total Protein Urine Random 27 mg/dL; Ur Ttl Prot Creatinine Ratio 0.22 mg/mg (0-0.20)
== END 2021-02-06 09:28 | disposition home or self-care (01) ==
PROVIDERS: PCP Family Medicine; Referring Provider Family Medicine; Visit Provider Internal Medicine Nephrology
DX: N18.31 Chronic kidney disease, stage 3a (principal)
CPT/HCPCS: 36415; 80069; 81001; 82570; 84156

== ENCOUNTER 2021-03-27 14:48 | Emergency (ER) | payer MEDICARE, BC, SELFPAY ==
--- NOTE | ~2021-03-27 | US_ITS ---
EXAMINATION: US venous doppler LE EXAM DATE: 03/27/2021 15:55 INDICATION: Bilateral leg edema. TECHNIQUE: Multiple grayscale, color flow and Doppler images of the lower extremity deep venous syste ms bilaterally were obtained and reviewed. There is no prior study for comparison. FINDINGS: Right side: The right common femoral, femoral and profunda veins demonstrate normal color flow, respi ratory variation, augmentation and compressibility. Compressibility, color flow confirmed within the right popliteal, posterior tibial, peroneal, and greater saphenous veins. Left side: The left common femoral, femoral and profunda veins demonstrate normal color flow, respira tory variation, augmentation and compressibility. Compressibility, color flow confirmed within the l eft popliteal, posterior tibial, peroneal, and greater saphenous veins. IMPRESSION: No lower extremity deep venous thrombosis bilaterally. Reviewed, dictated and finalized at location A.
--- NOTE | ~2021-03-27 | XR_ITS ---
EXAMINATION: XR chest 2V DATE: 03/27/2021 16:21 INDICATION: Bilateral ankle swelling, hypertension TECHNIQUE: PA and lateral views of the chest are obtained. COMPARISON: 02/17/2020 FINDINGS: The lungs are hyperinflated. There are chronic airspace opacities in the lingula. No acute airspace opacities are identified. There is no pleural effusion or pneumothorax. The cardiomediastina l silhouette is normal. There is mild thoracic spondylosis. Surgical clips in the right upper quadran t are likely from prior cholecystectomy. A healed left proximal humerus fracture is noted. IMPRESSION: 1. No acute cardiopulmonary abnormality. Reviewed, dictated and finalized at location A.
[2021-03-27 14:51] VITALS: BP 177/93; PULSE 73; RESP 14; TEMP 36.5; O2SAT 95
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
--- NOTE | 2021-03-27 15:12 | ECG_ITS ---
Measurements Intervals [place] Rate: 65 P: 56 KS: 182 QRS: 80 QRSD: 73 T: 26 QT: 402 QTc: 421 Interpretive Statements SINUS RHYTHM NORMAL ECG Electronically Signed On 03-27-2021 16:33:03 CDT by Hakan Garza D.O.
[2021-03-27 16:18] LABS: Basophils Absolute Auto 0.1 K/mm3 (0.0-0.1); Eosinophils Absolute Auto 0.2 K/mm3 (0-0.3); Eosinophils Percent Auto 4.2 % (0-4.4); Hemoglobin 12.6 g/dL (12.0-15.0); Immature Granulocyte Absolute 0.02 K/mm3 (0.00-0.031); Immature Granulocyte Percent A 0.4 % (0-0.5); Lymphocytes Absolute Auto 1.64 K/mm3 (0.9-3.2); Lymphocytes Percent Auto 31.7 % (18.3-44.2); Mean Corpuscular HGB Conc 32.3 g/dl (32-36); Mean Corpuscular Hemoglobin 30.7 pg (26-34); Mean Corpuscular Volume 95.1 fl (80-100); Mean Platelet Volume 10.9 fl (7.4-10.4); Monocytes Absolute Auto 0.4 K/mm3 (0.1-0.6); Monocytes Percent Auto 7.5 % (2.6-8.5); Neutrophils Absolute Auto 2.9 K/mm3 (1.3-6.7); Neutrophils Percent Auto 55.2 % (45.5-73.1); Platelet Count Result 204 k/mm3 (150-375); Red Cell Distribution Width 13.2 % (11.5-14.5); White Blood Count 5.2 K/mm3 (4.5-10.0)
[2021-03-27 16:32] LABS: INR 0.9; Prothrombin Time 13.1 Seconds (11.1-14.7)
[2021-03-27 16:49] LABS: Anion Gap 6 mmol/L (8-16); Blood Urea Nitrogen 13 mg/dL (7-17); Calcium 9.6 mg/dL (8.4-10.2); Carbon Dioxide 27 mmol/L (22-30); Chloride 106 mmol/L (98-107); Estimated CRCL calculation 39 ml/min; Estimated Glomerular Filt Rate 60; Glucose 89 mg/dL (65-105); Potassium 4.1 mmol/L (3.4-5.0); Sodium 139 mmol/L (137-145)
[2021-03-27 16:58] LABS: NT Pro B Type Natriuretic Pept 391 pg/mL (5-100)
[2021-03-27 17:29] VITALS: BP 165/107; PULSE 70; RESP 15; O2SAT 98
== END 2021-03-27 17:31 | disposition home or self-care (01) ==
PROVIDERS: Emergency Provider Emergency Medicine; PCP Family Medicine
DX: R60.0 Localized edema (principal); I12.9 Hypertensive chronic kidney disease with stage 1 through stage 4 chronic kidney disease, or unspecified chronic kidney disease; N18.30 Chronic kidney disease, stage 3 unspecified; F41.9 Anxiety disorder, unspecified; K21.9 Gastro-esophageal reflux disease without esophagitis; D64.9 Anemia, unspecified; Z86.19 Personal history of other infectious and parasitic diseases; M81.0 Age-related osteoporosis without current pathological fracture; Z66 Do not resuscitate
CPT/HCPCS: 36415; 71046; 80048; 83880; 85025; 85610; 93005; 93970; 99284

== ENCOUNTER 2021-05-30 12:03 | Outpatient (CLI) | payer MEDICARE, BC, SELFPAY ==
[2021-05-30 12:47] LABS: Hematocrit 38.7 % (37.0-47.0); Hemoglobin 12.7 g/dL (12.0-15.0); Mean Corpuscular HGB Conc 32.8 g/dl (32-36); Mean Corpuscular Hemoglobin 30.6 pg (26-34); Mean Corpuscular Volume 93.3 fl (80-100); Mean Platelet Volume 11.2 fl (7.4-10.4); Platelet Count Result 203 k/mm3 (150-375); Red Blood Count 4.15 M/mm3 (4.2-5.4); White Blood Count 7.6 K/mm3 (4.5-10.0)
[2021-05-30 12:52] LABS: Creatinine Urine 18.5 mg/dL; Total Protein Urine Random 12 mg/dL; Ur Ttl Prot Creatinine Ratio 0.65 mg/mg (0-0.20)
[2021-05-30 12:57] LABS: Albumin Level 3.8 g/dL (3.5-5.1); Anion Gap 8 mmol/L (8-16); Blood Urea Nitrogen 15 mg/dL (7-17); Carbon Dioxide 23 mmol/L (22-30); Chloride 102 mmol/L (98-107); Estimated Glomerular Filt Rate 53; Glucose 78 mg/dL (65-110); Phosphorus 3.5 mg/dL (2.5-4.5); Potassium 4.7 mmol/L (3.4-5.0); Sodium 133 mmol/L (137-145)
[2021-05-30 13:09] LABS: Parathyroid Intact 80.7 pg/mL (7.5-53.5)
== END 2021-05-30 12:04 | disposition home or self-care (01) ==
PROVIDERS: PCP Family Medicine; Visit Provider Internal Medicine Nephrology
DX: N18.31 Chronic kidney disease, stage 3a (principal); E87.1 Hypo-osmolality and hyponatremia
CPT/HCPCS: 36415; 80069; 82570; 83970; 84156; 85027

== ENCOUNTER 2021-11-28 12:03 | Outpatient (CLI) | payer MEDICARE, BC, SELFPAY ==
[2021-11-28 12:28] LABS: Hemoglobin 13.8 g/dL (12.0-15.0); Mean Corpuscular HGB Conc 33.7 g/dl (32-36); Mean Corpuscular Hemoglobin 31.9 pg (26-34); Mean Corpuscular Volume 94.7 fl (80-100); Mean Platelet Volume 11.1 fl (7.4-10.4); Platelet Count Result 216 k/mm3 (150-375); Red Blood Count 4.33 M/mm3 (4.2-5.4); Red Cell Distribution Width 12.5 % (11.5-14.5); White Blood Count 5.9 K/mm3 (4.5-10.0)
[2021-11-28 12:40] LABS: Creatinine Urine 15.2 mg/dL; Total Protein Urine Random 15 mg/dL; Ur Ttl Prot Creatinine Ratio 0.99 mg/mg (0-0.20)
[2021-11-28 12:49] LABS: Anion Gap 10 mmol/L (8-16); Blood Urea Nitrogen 18 mg/dL (7-17); Calcium 9.3 mg/dL (8.4-10.2); Carbon Dioxide 25 mmol/L (22-30); Chloride 100 mmol/L (98-107); Estimated Glomerular Filt Rate 53; Glucose 88 mg/dL (65-110); Phosphorus 3.8 mg/dL (2.5-4.5); Potassium 4.4 mmol/L (3.4-5.0); Sodium 135 mmol/L (137-145)
[2021-11-28 13:00] LABS: Parathyroid Intact 63.5 pg/mL (7.5-53.5)
[2021-11-28 13:18] LABS: Cortisol Random 4.28 ug/dL
== END 2021-11-28 12:04 | disposition home or self-care (01) ==
PROVIDERS: PCP Family Medicine; Visit Provider Internal Medicine Nephrology
DX: N18.31 Chronic kidney disease, stage 3a (principal)
CPT/HCPCS: 36415; 80069; 82533; 82570; 83970; 84156; 85027

== ENCOUNTER 2021-11-28 15:20 | Emergency (ER) | payer MEDICARE, BC, SELFPAY ==
--- NOTE | ~2021-11-28 | XR_ITS ---
EXAMINATION: XR hand RT min 3V DATE: 11/28/2021 18:03 INDICATION: Right hand injury. Pain of the fifth digit. TECHNIQUE: 4 views of right hand were obtained. COMPARISON: None. FINDINGS: There is radial subluxation of first distal phalanx with respect to the proximal phalanx an d third distal phalanx respect to the middle phalanx. There is ulnar angulation of the third and four th middle phalanges with respect to the proximal phalanges. There is a comminuted fracture of base of fifth proximal phalanx. There is extensive osteoarthritis of the hand and wrist, severe at the first interphalangeal joint, second and third distal interphalangeal joints, third-fifth proximal interpha langeal joints, and first carpometacarpal joint. IMPRESSION: 1. Comminuted fracture of base of fifth proximal phalanx. 2. Polyarticular osteoarthritis. Reviewed, dictated and finalized at location A. OR ELECTRONICS ENGINEER
--- NOTE | ~2021-11-28 | CT_ITS ---
EXAMINATION: CT brain wo con DATE: 11/28/2021 17:51 INDICATION: Head injury. TECHNIQUE: Computed tomography (CT) of the head was performed without intravenous contrast. The mA wa s adjusted according to patient size. Iterative reconstruction technique was employed. The dose-lengt h product was 605.33 mGy-cm. COMPARISON: Head CT 04/28/2013 FINDINGS: There are scattered areas of low attenuation in the cerebral white matter. There is no intr acranial hemorrhage, acute infarction, or abnormal intracranial mass lesion. The ventricles are nicole l in size. There is mild mucosal thickening in the paranasal sinuses. The orbits are normal. The mast oid air cells are normal. There is right frontal scalp soft tissue swelling. IMPRESSION: 1. Worsened moderate nonspecific cerebral white matter disease, which likely represents chronic small vessel ischemic disease. Reviewed, dictated and finalized at location A. HT SURVEYOR IMPRESSION: 1. Worsened moderate nonspecific cerebral white matter disease, which likely re presents chronic small vessel ischemic disease.
--- NOTE | ~2021-11-28 | CT_ITS ---
EXAMINATION: CT facial bones wo con DATE: 11/28/2021 17:51 INDICATION: Head injury. TECHNIQUE: Computed tomography (CT) of the facial bones and maxillofacial region was performed withou t intravenous contrast. Automated exposure control and iterative reconstruction technique were employ ed. The dose-length product was 282.32 mGy-cm. COMPARISON: None. FINDINGS: There is right frontal scalp soft tissue swelling. The orbits are normal. There is leftward deviation of the nasal septum. There are old fractures of the nasal bones. There is mild mucosal thi ckening in the ethmoid sinuses. The mastoid air cells are normal. IMPRESSION: 1. No acute fracture. Reviewed, dictated and finalized at location A. ITY CONTROL ASSISTANT IMPRESSION: 1. No acute fracture.
[2021-11-28 15:31] VITALS: BP 154/79; PULSE 69; RESP 15; TEMP 36.7; O2SAT 98
[2021-11-28] MEDS: LIDOCAINE HCL 1% LOCAL INJ 20 ML VIAL (18:51)
--- NOTE | 2021-11-28 18:55 | PC.NURSE ---
erp at bedside. lip laceration repaired.
--- NOTE | 2021-11-28 19:06 | ED.FALL ---
HPI - Fall General Chief Complaint: Fall Stated Complaint: fall Time Seen by Provider: 11/28/21 16:49 Source: patient and family Mode of arrival: ambulatory History of Present Illness HPI Narrative: 81-year-old with a history of hypertension was brought in by daughter with a complaint of fall. Patient states that she was walking this morning tripped and fell landed on her face complains of a laceration to the upper lip and fractured teeth. She denies any head injuries no loss of consciousness. Denies neck pain. Also complains of pain to the right fifth digit. MD complaint: fall Onset (ago): hour(s) (5) Fall from: standing Fall witnessed: no Place fall occurred: street Loss of consciousness: none Severity: mild Quality: aching Associated symptoms (after fall): denies Related Data Home Medications Medication Instructions Recorded Confirmed pantoprazole 40 mg PO 06/30/20 08/28/21 Allergies Allergy/AdvReac Type Severity Reaction Status Date / Time gabapentin Allergy Severe Seizure Verified 08/28/21 14:10 Review of Systems Review of Systems: All systems reviewed & are unremarkable except as noted in HPI and below Constitutional: Constitutional: Reports no additional constitutional complaints Eyes: Eyes: Reports no additional eye complaints ENT: Reports system reviewed and no additional complaints, except as documented Cardiovascular: Cardiovascular: Reports no additional cardiovascular complaints Respiratory: Respiratory: Reports no additional respiratory complaints Gastrointestinal: Gastrointestinal: Reports no additional gastrointestinal complaints Musculoskeletal: Musculoskeletal: Reports as per HPI Integumentary/Breasts: Skin/Breast: Reports system reviewed and no additional complaints, except as docu Neurologic: Reports system reviewed and no additional complaints, except as documented [facility] Past Medical History Medical History ANN-MARIE (acute kidney injury) Anemia With history of iron infusions. Anxiety Aortic valve regurgitation Echocardiogram in May 2018 showed normal left ventricular systolic function and size with mild concentric left ventricular hypertrophy and ejection fraction estimated at 60%. Mild aortic valve regurgitation noted with a valve area of 1.7 centimeters squared. BMI between 19-24,adult Chronic kidney disease, stage 3 Baseline creatinine is 1.20. 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 She has been evaluated by a medical/surgery registered nurse Dr. camacho at [facility], and was told she had no active issues and needed no treatment. Hepatitis C Inactive Insomnia Kidney disease Left humeral fracture She was seen by Dr. Pearson on 02/17/2020 replace the IM nail left tumors fracture Left patella fracture Left wrist fracture Migraine headache Orofacial dyskinesia With chronic dry mouth. Osteoporosis Painful orthopaedic hardware Protein, urine, abnormal presence Rotator cuff tear, left Seizure History of seizure x2 after taking gabapentin. Surgical History Surgical History History of cholecystectomy History of repair of hiatal hernia History of surgery on left wrist ORIF left distal radius fracture in August [address] Hidalgo. Family History Family History Mother Diabetes mellitus Lung cancer Sibling Stomach cancer Sibling Non-Hodgkin lymphoma Social History Social History Social History: The patient is and lives in her own home in [place]. She designates her daughter, Liss Sheikh, as her surrogate decision maker and she wishes to be a full code. She is a lifelong nonsmoker and denies alcohol and drug use. Patient stated that she had 6 daughters and
[2021-11-28 19:07] VITALS: BP 148/92; PULSE 64; RESP 18; O2SAT 96
== END 2021-11-28 19:14 | disposition home or self-care (01) ==
PROVIDERS: Emergency Provider Family Medicine; PCP Family Medicine
DX: S02.5XXA Fracture of tooth (traumatic), initial encounter for closed fracture (principal); S01.511A Laceration without foreign body of lip, initial encounter; I12.9 Hypertensive chronic kidney disease with stage 1 through stage 4 chronic kidney disease, or unspecified chronic kidney disease; N18.30 Chronic kidney disease, stage 3 unspecified; K21.9 Gastro-esophageal reflux disease without esophagitis; W01.0XXA Fall on same level from slipping, tripping and stumbling without subsequent striking against object, initial encounter
CPT/HCPCS: 12011; 36415; 70450; 70486; 73130; 80069; 82533; 82570; 83970; 84156; 85027; 99284

== ENCOUNTER 2022-04-25 11:44 | Outpatient (CLI) | payer MEDICARE, BC, SELFPAY ==
[2022-04-25 11:55] LABS: Hematocrit 42.2 % (37.0-47.0); Hemoglobin 14.1 g/dL (12.0-15.0); Mean Corpuscular HGB Conc 33.4 g/dl (32-36); Mean Corpuscular Volume 95.7 fl (80-100); Mean Platelet Volume 11.1 fl (7.4-10.4); Platelet Count Result 222 k/mm3 (150-375); Red Blood Count 4.41 M/mm3 (4.2-5.4); Red Cell Distribution Width 13.4 % (11.5-14.5); White Blood Count 6.5 K/mm3 (4.5-10.0)
[2022-04-25 12:22] LABS: Iron 108 ug/dL (37-170)
[2022-04-25 12:31] LABS: Percent Iron Saturation 34 % (20-50)
[2022-04-25 13:01] LABS: Vitamin D 25 Hydroxy 67.4 ng/mL
== END 2022-04-25 11:45 | disposition home or self-care (01) ==
PROVIDERS: PCP Family Medicine; Visit Provider Nurse Practitioner Family
DX: D64.9 Anemia, unspecified (principal); E55.9 Vitamin D deficiency, unspecified; R93.89 Abnormal findings on diagnostic imaging of other specified body structures
CPT/HCPCS: 36415; 82306; 83540; 83550; 84443; 85027

== ENCOUNTER 2022-05-17 07:27 | Outpatient (CLI) | payer MEDICARE, BC, SELFPAY ==
[2022-05-17 08:27] LABS: T4 Thyroxine 7.07 ug/dL (5.53-11.0)
== END 2022-05-17 07:28 | disposition home or self-care (01) ==
PROVIDERS: PCP Family Medicine; Visit Provider Nurse Practitioner Family
DX: R79.89 Other specified abnormal findings of blood chemistry (principal); R93.89 Abnormal findings on diagnostic imaging of other specified body structures
CPT/HCPCS: 36415; 84436; 84443

== ENCOUNTER 2022-12-16 10:36 | Outpatient (CLI) | payer MEDICARE, BC, SELFPAY ==
--- NOTE | 2022-12-16 | ECG_ITS ---
Measurements Intervals [place] Rate: 68 P: 59 KS: 179 QRS: 76 QRSD: 68 T: 46 QT: 382 QTc: 407 Interpretive Statements SINUS RHYTHM BASELINE ARTIFACT NORMAL ECG COMPARED TO ECG 03/27/2021 15:21:55 NO SIGNIFICANT CHANGES Electronically Signed On 12-16-2022 16:21:55 HEDIS NURSE by Froilan Luo M.D.
[2022-12-16 11:27] LABS: Anion Gap 6 mmol/L (8-16); Blood Urea Nitrogen 17 mg/dL (7-17); Calcium 9.3 mg/dL (8.4-10.2); Carbon Dioxide 27 mmol/L (22-30); Chloride 101 mmol/L (98-107); Estimated Glomerular Filt Rate 48; Glucose 83 mg/dL (65-110); Potassium 4.2 mmol/L (3.4-5.0); Sodium 134 mmol/L (137-145)
== END 2022-12-16 10:37 | disposition home or self-care (01) ==
PROVIDERS: PCP Family Medicine; Visit Provider Physician Assistant Medical
DX: E03.9 Hypothyroidism, unspecified (principal); I10 Essential (primary) hypertension; I35.0 Nonrheumatic aortic (valve) stenosis
CPT/HCPCS: 36415; 80048; 84443; 93005

== ENCOUNTER 2023-01-04 10:23 | Emergency (ER) | payer MEDICARE, BC, SELFPAY ==
--- NOTE | ~2023-01-04 | CT_ITS ---
EXAMINATION: CT pelvis wo con DATE: 01/04/2023 12:31 INDICATION: Right hip pain TECHNIQUE: Computed tomography (CT) of the pelvis was performed without intravenous contrast. Automat ed exposure control and iterative reconstruction technique were employed. Exam dose: 245.85 mGy-cm t otal exam DLP. COMPARISON: January 04, 2023 pelvis and right hip FINDINGS: Chronic old ununited fracture deformities of the right superior and inferior pubic rami. No recent pelvic fracture. No evidence of sacral fracture. No hip fracture or dislocation is evident. There is moderately severe bilateral hip osteoarthritis. Moderate degenerative disease at L4-5 and L5-S1. Prominent degenerative change at the apophyseal join ts at L4-5 and L5-S1 with associated grade 1 anterolisthesis at L5-S1. 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 Reviewed, dictated and finalized at location A. P TREATMENT SPECIALIST IMPRESSION: Chronic old ununited right superior and inferior pubic ramus fract ures No recent pelvic fracture is evident Moderately severe bilateral hip osteoarthritis
--- NOTE | ~2023-01-04 | XR_ITS ---
XR hip RT min 3V w AP pelvis DATE: 01/04/2023 11:03 INDICATION: Lateral right hip pain following a fall TECHNIQUE: AP pelvis. AP, lateral and cross table lateral views of right hip COMPARISON: None FINDINGS: Diffuse osteopenia. There is prominent degenerative disc disease at L4-5 and L5-S1. Normal alignment at pubic symphysis and sacroiliac joints. Old fracture deformities or right superior and inferior pubic rami. If there is concern for acute fr acture, which might be obscured by the old fracture deformities, consider pelvic CT examination There is moderate bilateral hip osteoarthritis. No pelvic recent fracture or bone destruction. No right hip fracture or dislocation. IMPRESSION: Old right superior and inferior pubic ramus fracture deformities Bilateral hip osteoarthritis Multi-level degenerative disc disease at L4-5, L5-S1 If there is strong clinical suspicious of recent fracture (which might be obscured by the old right p ubic fracture deformities), consider CT pelvic Reviewed, dictated and finalized at location A. ANY MARKER IMPRESSION: Old right superior and inferior pubic ramus fracture deformities Bilateral hip osteoarthritis Multi-level degenerative disc disease at L4-5, L5-S1 If there is strong clinical suspicious of recent fracture (which might be obscu red by the old right pubic fracture deformities), consider CT pelvic
[2023-01-04 10:40] VITALS: BP 155/85; PULSE 72; RESP 16; O2SAT 94
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
== END 2023-01-04 13:48 | disposition home or self-care (01) ==
PROVIDERS: Emergency Provider Physician Assistant; PCP Family Medicine
DX: S79.911A Unspecified injury of right hip, initial encounter (principal); I35.1 Nonrheumatic aortic (valve) insufficiency; I12.9 Hypertensive chronic kidney disease with stage 1 through stage 4 chronic kidney disease, or unspecified chronic kidney disease; N18.30 Chronic kidney disease, stage 3 unspecified; K21.9 Gastro-esophageal reflux disease without esophagitis; D64.9 Anemia, unspecified; G24.4 Idiopathic orofacial dystonia; M81.0 Age-related osteoporosis without current pathological fracture; Z86.19 Personal history of other infectious and parasitic diseases; Z87.891 Personal history of nicotine dependence; M16.0 Bilateral primary osteoarthritis of hip; M51.36 Other intervertebral disc degeneration, lumbar region; M51.37 Other intervertebral disc degeneration, lumbosacral region; W07.XXXA Fall from chair, initial encounter
CPT/HCPCS: 72192; 73502; 99284

== ENCOUNTER 2023-01-07 15:13 | Inpatient (IN) | payer MEDICARE, BC, SELFPAY ==
--- NOTE | ~2023-01-07 | XR_ITS ---
EXAMINATION: XR chest 1V Exam Date/Time: 01/07/2023 21:25 STRIPPER APPRENTICE HISTORY: Fall Friday. hx htn Comparison: 03/27/2021, CT chest 07/26/2020. RESULT: Lines, tubes, and devices: Cholecystectomy clips. Lungs and pleura: Apical pleural scarring. Chronic lingular collapse and scattered tree-in-bud opaci ties. Senescent and emphysematous changes. Cardiomediastinal silhouette: Stable. Other: No acute osseous or upper abdominal finding. Old left humeral fracture, healed in deformity IMPRESSION: No acute cardiopulmonary process. Stable chronic atypical infection. Reviewed, dictated and finalized at location K. PPER APPRENTICE
--- NOTE | ~2023-01-07 | XR_ITS ---
EXAM: XR knee RT min 4V DATE: 01/07/2023 21:35 HISTORY: fall friday, pain in right knee extending to right hip . COMPARISON: None available. FINDINGS: Osteopenia. No fracture or dislocation. No lytic or blastic lesion. Mild medial and latera l joint space narrowing. Mild tricompartmental osteophytosis. Significant chondrocalcinosis. No erosi on or periosteal change. Soft tissues within normal limits. IMPRESSION: No acute osseous finding in the right knee. Reviewed, dictated and finalized at location K. PER
--- NOTE | ~2023-01-07 | CT_ITS ---
EXAMINATION: CT pelvis wo con DATE: 01/07/2023 21:09 INDICATION: Right hip/pelvic pain, unable to bear weight TECHNIQUE: Computed tomography (CT) of the pelvis was performed without intravenous contrast. Automat ed exposure control and iterative reconstruction technique were employed. The dose-length product was 218.89 mGy-cm. COMPARISON: CT pelvis 01/04/2023 FINDINGS: Atherosclerotic calcifications. Diverticulosis. Degenerative disc disease in the lumbar spi ne. Grade 1 anterolisthesis at L4-5. Chronic ununited right superior and inferior pubic ramus fractur es. Acute mildly angulated and minimally comminuted right intertrochanteric fracture. Bilateral hip o steoarthritis. IMPRESSION: Acute right intertrochanteric fracture. Reviewed, dictated and finalized at location K. SUPERINTENDENT
--- NOTE | ~2023-01-07 | XR_ITS ---
EXAM: XR hip RT 2V w AP pelvis DATE: 01/07/2023 22:57 HISTORY: R intertrochanteric fx, XR request by ortho . COMPARISON: CT pelvis 12/30/2022. FINDINGS: Decreased mineralization. Degenerative disc disease in the lumbar spine. Old unfused right obturator ring fractures. Acute mildly angulated right intertrochanteric fracture. IMPRESSION: Acute right intertrochanteric fracture. Reviewed, dictated and finalized at location K. RETE PRODUCTS DISPATCHER
--- NOTE | ~2023-01-07 | XR_ITS ---
EXAMINATION: XR surgery orthopedic DATE: 01/08/2023 18:54 INDICATION: Intertrochanteric fracture of proximal right femur. TECHNIQUE: 4 intraoperative fluoroscopic views of right femur were obtained. I was not present. Fluor oscopy exposure time was 2 minutes 58 seconds. COMPARISON: Pelvis and right hip radiographs 01/07/2023 FINDINGS: There is an intertrochanteric fracture of proximal right femur status post open reduction i nternal fixation with long intramedullary juan j, femoral head/neck screw, and distal interlocking screw . There is mild right hip osteoarthritis. IMPRESSION: 1. Intertrochanteric fracture of proximal right femur status post open reduction internal fixation. Reviewed, dictated and finalized at location A. RICT CUSTOMS DIRECTOR IMPRESSION: 1. Intertrochanteric fracture of proximal right femur status post open reductio n internal fixation.
[2023-01-07 15:39] VITALS: BP 163/85; PULSE 81; RESP 14; TEMP 37.1; O2SAT 97
--- NOTE | 2023-01-07 21:03 | ED.LOWEXIN ---
HPI - Extremity Injury (Lower) General Chief Complaint: Extremity Injury, Lower <Sujey Carvalho PA-C - Last Filed: 01/07/23 23:41> Stated Complaint: right leg pain <RAFA Calhoun Last Filed: 01/07/23 23:41> Time Seen by Provider: 01/07/23 19:45 <RAFA Calhoun Last Filed: 01/07/23 23:41> Source: patient and old records reviewed <RAFA Calhoun Last Filed: 01/07/23 23:41> Mode of arrival: ambulatory <RAFA Calhoun Last Filed: 01/07/23 23:41> Limitations: no limitations <RAFA Calhoun Last Filed: 01/07/23 23:41> History of Present Illness HPI Narrative: Patient is an 82-year-old female who presents the ED with report of right hip and thigh pain. Patient reports she fell on Friday from standing on a chair. She fell onto her right side and hip. She did not hit her head or lose consciousness. She was able to ambulate after the fall, but was seen in the ED that day. She had negative x-rays of her right hip and CT scan of her pelvis. Patient states she has been doing fine since then and walking with her walker, however she developed worsening pain this morning. She states she was unable to bear any weight on her right leg due to the pain in her right hip. Pain worse with any movement of her right hip. She has been taking Tylenol without much relief. Denies any new injury or fall. Denies any numbness or tingling, weakness, back pain, abdominal pain, bowel or bladder incontinence. <RAFA Calhoun Last Filed: 01/07/23 23:41> Related Data Home Medications: Home Medications Medication Instructions Recorded Confirmed pantoprazole 40 mg tablet,delayed 40 mg PO DAILY 06/30/20 01/08/23 release lisinopril 40 mg tablet 40 mg PO DAILY 01/08/23 01/08/23 mirtazapine 15 mg tablet 15 mg PO HS 01/08/23 01/08/23 <Sujey Carvalho PA-C - Last Filed: 01/07/23 23:41> Allergies/Adverse Reactions: Allergies Allergy/AdvReac Type Severity Reaction Status Date / Time gabapentin Allergy Severe Seizure Verified 01/07/23 15:44 <Sujey Carvalho PA-C - Last Filed: 01/07/23 23:41> Review of Systems Review of Systems: CONSTITUTIONAL: Denies fever, chills, or sweats. CARDIOVASCULAR: Denies chest pain. RESPIRATORY: Denies cough or dyspnea. GASTROINTESTINAL: Denies abdominal pain, nausea, vomiting, or diarrhea. GENITOURINARY: Denies dysuria or hematuria. MUSCULOSKELETAL: See HPI. NEUROLOGIC: Denies tingling, numbness, or weakness. <Sujey Carvalho PA-C - Last Filed: 01/07/23 23:41> All systems reviewed & are unremarkable except as noted in HPI and below <Sujey Carvalho PA-C - Last Filed: 01/07/23 23:41> [facility] Past Medical History Medical History: Medical History (Updated 01/08/23 @ 03:28 by Chelsy Mckeon MD) ANN-MARIE (acute kidney injury) Anemia With history of iron infusions. Anxiety Aortic valve regurgitation Echocardiogram in May 2018 showed normal left ventricular systolic function and size with mild concentric left ventricular hypertrophy and ejection fraction estimated at 60%. Mild aortic valve regurgitation noted with a valve area of 1.7 centimeters squared. BMI 21.0-21.9, adult BMI between 19-24,adult Chronic kidney disease, stage 3 Baseline creatinine is 1.20. 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 She has been evaluated by a non profit financial controller Dr. camacho at [facility], and was told she had no active issues and needed no treatment. Hepatitis C Inactive Insomnia Kidney disease Left humeral fracture She was seen by Dr. Pearson on 02/17/2020 replace the IM nail left tumors fracture Left patella fracture Left wrist fracture Migraine headache Orofacial dyskinesia With chronic dry mouth. Osteoporosis Painful orthopaedic hardware Protein, urine, abnormal
--- NOTE | 2023-01-07 21:20 | ECG_ITS ---
Measurements Intervals Ider Rate: 83 P: 75 VA: 179 QRS: 82 QRSD: 69 T: 47 QT: 361 QTc: 425 Interpretive Statements SINUS RHYTHM NONSPECIFIC ST & T-WAVE ABNORMALITY- ANTEROLAT/INF LEADS BASELINE ARTIFACT- I, II, III, AVR, AVL, AVF BORDERLINE ECG COMPARED TO ECG 12/16/2022 11:39:00 ST-T WAVE ABNORMALITY NOW PRESENT Electronically Signed On 01-08-2023 6:39:16 MANAGER DEMAND by Hakan Garza D.O.
[2023-01-07 21:47] LABS: Basophils Percent Auto 0.5 % (0.2-1.2); Eosinophils Percent Auto 0.3 % (0-4.4); Hematocrit 41.1 % (37.0-47.0); Hemoglobin 13.4 g/dL (12.0-15.0); Immature Granulocyte Absolute 0.02 K/mm3 (0.00-0.031); Immature Granulocyte Percent A 0.3 % (0-0.5); Lymphocytes Percent Auto 13.7 % (18.3-44.2); Mean Corpuscular HGB Conc 32.6 g/dl (32-36); Mean Corpuscular Hemoglobin 31.5 pg (26-34); Mean Corpuscular Volume 96.7 fl (80-100); Mean Platelet Volume 10.9 fl (7.4-10.4); Monocytes Absolute Auto 0.5 K/mm3 (0.1-0.6); Monocytes Percent Auto 7.4 % (2.6-8.5); Neutrophils Absolute Auto 5.7 K/mm3 (1.3-6.7); Neutrophils Percent Auto 77.8 % (45.5-73.1); Platelet Count Result 214 k/mm3 (150-375); Red Blood Count 4.25 M/mm3 (4.2-5.4); Red Cell Distribution Width 12.8 % (11.5-14.5); White Blood Count 7.3 K/mm3 (4.5-10.0)
[2023-01-07 21:56] LABS: Alanine Aminotransferase 27 U/L (6-35); Albumin Level 4.5 g/dL (3.5-5.1); Alkaline Phosphatase 86 U/L (38-126); Anion Gap 12 mmol/L (8-16); Aspartate Amino Transferase 39 U/L (14-36); Bilirubin,Total 1.1 mg/dL (0.2-1.3); Blood Urea Nitrogen 25 mg/dL (7-17); Calcium 9.4 mg/dL (8.4-10.2); Carbon Dioxide 23 mmol/L (22-30); Chloride 103 mmol/L (98-107); Estimated CRCL calculation 30 ml/min; Estimated Glomerular Filt Rate 48; Glucose 103 mg/dL (65-110); Potassium 4.4 mmol/L (3.4-5.0); Sodium 138 mmol/L (137-145)
[2023-01-07 22:00] LABS: INR 1.1; Prothrombin Time 13.6 Seconds (11.1-14.7)
[2023-01-07 22:01] LABS: Partial Thromboplastin Time 38.7 SECONDS (22.3-36.8)
[2023-01-07 22:06] VITALS: BP 168/78; PULSE 76; PULSE 77; RESP 24; RESP 37; TEMP 36.4; O2SAT 97
[2023-01-07 22:16] VITALS: BP 180/94; PULSE 78; RESP 22; O2SAT 99
[2023-01-07 23:01] VITALS: BP 164/89; PULSE 76; RESP 30; O2SAT 100
--- NOTE | 2023-01-07 23:06 | PM.IMHP ---
H&P: HPI History of Present Illness Date/Time: 01/07/23 23:06 Chief Complaint: Right leg pain Narrative: This is an 82-year-old female with past medical history significant for hypertension, GERD, anemia, generalized anxiety disorder, esophageal stricture, GERD, hepatitis-C. Patient comes to the emergency room a 2nd time due to in pain upon weight-bearing of the right leg initially presented earlier in the week preliminary workup was nonrevealing patient returns due to worsening pain with ambulation new imaging reveals a right intertrochanteric fracture. Patient has been admitted for further evaluation management and treatment. Hip x-ray FINDINGS: Decreased mineralization. Degenerative disc disease in the lumbar spine. Old unfused right obturator ring fractures. Acute mildly angulated right intertrochanteric fracture. IMPRESSION: Acute right intertrochanteric fracture. Review of Systems Review of Systems: Pain upon weight-bearing of the right leg Constitutional: Constitutional: Denies chills, Denies fatigue, Denies fever(s), Denies malaise, Denies night sweats, Denies poor appetite and Denies weakness Eyes: Eyes: Denies change in vision ENT: Denies dysphagia, Denies vertigo, Denies dizziness and Denies odynophagia Cardiovascular: Cardiovascular: Denies chest pain, Denies leg edema and Denies palpitations Respiratory: Respiratory: Denies chest congestion, Denies cough and Denies pain on inspiration Gastrointestinal: Gastrointestinal: Denies abdominal pain, Denies dyspepsia, Denies heartburn, Denies diarrhea, Denies nausea and Denies vomiting Genitourinary: Genitourinary: Denies dysuria Musculoskeletal: Musculoskeletal: Reports abnormal gait and Reports arthralgias Integumentary/Breasts: Skin/Breast: Denies rash Neurologic: Denies vertigo, Denies dizziness, Denies focal weakness and Denies Sensory deficit (Neuro) Psychiatric: Psychiatric: Reports no additional psychiatric complaints and Reports as per HPI Endocrine: Endocrine: Denies cold intolerance, Denies flushing, Denies heat intolerance, Denies polyphagia, Denies polydipsia and Denies palpitations Hematologic/Lymphatic: Hematologic/Lymphatic: Reports no additional hematologic/lymphatic complaints and Reports as per HPI Allergic/Immunologic: Allergic/Immunologic: Reports no additional allergic/immunologic complaints and Reports as per HPI [facility] Past Medical History Medical History (Updated 01/08/23 @ 03:28 by Chelsy Mckeon MD) ANN-MARIE (acute kidney injury) Anemia With history of iron infusions. Anxiety Aortic valve regurgitation Echocardiogram in May 2018 showed normal left ventricular systolic function and size with mild concentric left ventricular hypertrophy and ejection fraction estimated at 60%. Mild aortic valve regurgitation noted with a valve area of 1.7 centimeters squared. BMI 21.0-21.9, adult BMI between 19-24,adult Chronic kidney disease, stage 3 Baseline creatinine is 1.20. 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 She has been evaluated by a personnel officer Dr. camacho at [facility], and was told she had no active issues and needed no treatment. Hepatitis C Inactive Insomnia Kidney disease Left humeral fracture She was seen by Dr. Pearson on 02/17/2020 replace the IM nail left tumors fracture Left patella fracture Left wrist fracture Migraine headache Orofacial dyskinesia With chronic dry mouth. Osteoporosis Painful orthopaedic hardware Protein, urine, abnormal presence Rotator cuff tear, left Seizure History of seizure x2 after taking gabapentin. Surgical History Surgical History History of cholecystectomy History of repair of hiatal hernia History of surgery on left wrist ORIF left distal radius fracture in [place] [address] Hidalgo. Family History Family Hi
[2023-01-07 23:46] VITALS: BP 169/86; PULSE 77; RESP 17; O2SAT 98
[2023-01-08] VITALS (18 sets, daily range): BP systolic 110–192; BP diastolic 58–90; PULSE 73–84; RESP 8–30; TEMP 36.1–36.9; O2SAT 94–100
[2023-01-08] MEDS: MORPHINE SULFATE (*CRX) 4 MG/ML INJ IV PUSH (00:02)
[2023-01-08] MEDS: ONDANSETRON INJ 4 MG/2 ML VIAL IV PUSH (00:03)
--- NOTE | 2023-01-08 02:08 | PC.NURSE ---
This patient, Radha Saenz, was admitted to Medical Room 349-01. Patient/family oriented to hospital policies and general routines including ID bracelet, bed and alarms, visiting hours, pain management, procedures, bathroom and other care routines, personal items, smoking policy, room service/diet, and visiting hours. Information on how to activate the Rapid Response Team has been discussed. Patient/Family are encouraged to report perceived risks to care and to ask questions if they do not understand what they are told or what they should do.
[2023-01-08] MEDS: HYDROmorphone HCL INJ (*CRX) 1 MG/ML SYR 0.5 MG IV PUSH ×2 (02:17→08:15)
[2023-01-08] MEDS: PANTOPRAZOLE 40 MG TABLET PO (08:16)
[2023-01-08] MEDS: clonazePAM (*CRX) 0.5 MG TABLET 2 MG PO ×2 (08:16→12:29)
[2023-01-08] MEDS: lisinopriL 20 MG TABLET 40 MG PO (08:16)
[2023-01-08] MEDS: SODIUM CHLORIDE 0.9% IV 1,000 ML 100 ML IV CONT (09:00)
--- NOTE | 2023-01-08 14:38 | PM.IMPN ---
Progress Note: A&P Assessment and Plan (1) Closed intertrochanteric fracture of femur: Qualifiers: Encounter type: subsequent encounter Fracture alignment: nondisplaced Fracture healing: with routine healing Laterality: right Qualified Code(s): S72.144D - Nondisplaced intertrochanteric fracture of right femur, subsequent encounter for closed fracture with routine healing Code(s): S72.143A - Displaced intertrochanteric fracture of unspecified femur, initial encounter for closed fracture Status: Acute Assessment and Plan: Bed rest Orthopedic consult Pain management 01/08/2023 interval history: 82-year-old female status post fall infection of the right hip, complain of persistent pain in the hip with any movement, being treated with a pain medication, patient will be seen by Orthopedic and scheduled to have surgery later today, will continue to monitor once clinically stable have PT OT evaluate the patient, patient will benefit going to acute rehab. (2) Accidental fall from chair: Qualifiers: Encounter type: subsequent encounter Qualified Code(s): W07.XXXD - Fall from chair, subsequent encounter Code(s): W07.XXXA - Fall from chair, initial encounter Status: Acute Assessment and Plan: Fall precautions (3) Anxiety and depression: Code(s): F41.9 - Anxiety disorder, unspecified; F32.A - Depression, unspecified Status: Acute Assessment and Plan: Continue home meds (4) Diastolic dysfunction: Code(s): I51.89 - Other ill-defined heart diseases Status: Acute Assessment and Plan: Unchanged (5) CHF (congestive heart failure): Qualifiers: Heart failure type: unspecified Heart failure chronicity: acute on chronic Qualified Code(s): I50.9 - Heart failure, unspecified Code(s): I50.9 - Heart failure, unspecified Status: Acute Assessment and Plan: Unchanged (6) Generalized weakness: Code(s): R53.1 - Weakness Status: Acute Assessment and Plan: PT OT when clinically able to do so (7) GERD (gastroesophageal reflux disease): Code(s): K21.9 - Gastro-esophageal reflux disease without esophagitis Status: Acute Assessment and Plan: PPI Subjective Date/time seen: 01/08/23 14:38 Right leg pain Narrative: This is an 82-year-old female with past medical history significant for hypertension, GERD, anemia, generalized anxiety disorder, esophageal stricture, GERD, hepatitis-C.? Patient comes to the emergency room a 2nd time due to in pain upon weight-bearing of the right leg initially presented earlier in the week preliminary workup was nonrevealing patient returns due to worsening pain with ambulation new imaging reveals a right intertrochanteric fracture.? Patient has been admitted for further evaluation management and treatment. 01/08/2023 interval history: 82-year-old female status post fall infection of the right hip, complain of persistent pain in the hip with any movement, being treated with a pain medication, patient will be seen by Orthopedic and scheduled to have surgery later today, will continue to monitor once clinically stable have PT OT evaluate the patient, patient will benefit going to acute rehab. Review of Systems Constitutional: Constitutional: Denies chills, Denies fatigue, Denies fever(s), Denies malaise, Denies night sweats, Denies poor appetite and Denies weakness Exam Narrative: elderly frail Patient is comfortable, NAD HEENT: eyes are clear and none icteric LUNGS: normal respiratory ABD: not distended Lower extremities: no edema SKIN: nonjaundiced Neuro: grossly intact. Objective Data Vital Signs Vital Signs: Vital Signs - 24 hr 01/07/23 15:39 01/07/23 22:06 01/08/23 00:04 Temperature 98.7 F 97.6 F Pulse Rate 81 76 76 Respiratory Rate 14 24 H 20 Blood Pressure 163/85 H 168/78 H 129/58 L Pulse Oximetry 97 97 95 Oxygen Deliv
[2023-01-08] MEDS: fentaNYL CITRATE INJ (*CRX) 100 MCG/2 ML VIAL 25 MCG IV PUSH ×3 (15:21→19:31)
--- NOTE | 2023-01-08 15:46 | WPDANESEPPF ---
Anes - Initial Pre Proc Eval Procedure: Operation Date: 01/08/23 15:00 Proposed Procedures p Right Intertrochanteric Nail - Scott Hidalgo MD Date/Time: 01/08/23 15:46 Surgeon: Chelsy Mckeon MD Pre Op Diagnosis: R Intertrochanteric Fracture Patient Data Age: 82 Gender: F Height: 1.63 m Weight: 55 kg Last Vital Signs Temp 36.9 C 01/08/23 13:46 Pulse 78 01/08/23 13:46 Resp 16 01/08/23 13:46 BP 110/80 01/08/23 13:46 Pulse Ox 95 01/08/23 05:43 O2 Del Method Room Air 01/08/23 13:46 Allergies Allergy/AdvReac Type Severity Reaction Status Date / Time gabapentin Allergy Severe Seizure Verified 01/07/23 15:44 Home Medications Medication Instructions Recorded Confirmed Type pantoprazole 40 mg tablet,delayed 40 mg PO DAILY 06/30/20 01/08/23 History release clonazepam 2 mg tablet 2 mg PO TID #90 tabs 08/20/22 01/08/23 Rx suvorexant 15 mg tablet (Belsomra) 15 mg PO HS #90 tabs 12/03/22 01/08/23 Rx lisinopril 40 mg tablet 40 mg PO DAILY 01/08/23 01/08/23 History mirtazapine 15 mg tablet 15 mg PO HS 01/08/23 01/08/23 History Laboratory Tests 01/07/23 01/07/23 01/07/23 21:39 21:39 21:39 WBC 7.3 K/mm3 K/mm3 (4.5-10.0) RBC 4.25 M/mm3 M/mm3 (4.2-5.4) Hgb 13.4 g/dL g/dL (12.0-15.0) Hct 41.1 % % (37.0-47.0) MCV 96.7 fl fl (80-100) MCH 31.5 pg pg (26-34) MCHC 32.6 g/dl g/dl (32-36) RDW 12.8 % % (11.5-14.5) Plt Count 214 k/mm3 k/mm3 (150-375) MPV 10.9 fl H fl (7.4-10.4) Immature Gran % (Auto) 0.3 % % (0-0.5) Neut % (Auto) 77.8 % H % (45.5-73.1) Lymph % (Auto) 13.7 % L % (18.3-44.2) Boundary % (Auto) 7.4 % % (2.6-8.5) Eos % (Auto) 0.3 % % (0-4.4) Baso % (Auto) 0.5 % % (0.2-1.2) Lymph # (Auto) 1.00 K/mm3 K/mm3 (0.9-3.2) Boundary # (Auto) 0.5 K/mm3 K/mm3 (0.1-0.6) Eos # (Auto) 0.0 K/mm3 K/mm3 (0-0.3) Baso # (Auto) 0.0 K/mm3 K/mm3 (0.0-0.1) Abs Immat Gran (auto) 0.02 K/mm3 K/mm3 (0.00-0.031) Absolute Neuts (auto) 5.7 K/mm3 K/mm3 (1.3-6.7) Absolute Nucleated RBC 0.0 K/mm3 K/mm3 (0.0-0.012) Nucleated RBC % 0.0 % % (0.0-0.2) PT 13.6 Seconds Seconds (11.1-14.7) INR 1.1 APTT 38.7 SECONDS H SECONDS (22.3-36.8) Sodium 138 mmol/L mmol/L (137-145) Potassium 4.4 mmol/L mmol/L (3.4-5.0) Chloride 103 mmol/L mmol/L (98-107) Carbon Dioxide 23 mmol/L mmol/L (22-30) Anion Gap 12 mmol/L mmol/L (8-16) BUN 25 mg/dL H mg/dL (7-17) Creatinine 1.10 mg/dL H mg/dL (0.7-1.0) Estim Creat Clear Calc 30 ml/min ml/min Estimated GFR 48 L (59 - ) Glucose 103 mg/dL mg/dL (65-110) Calcium 9.4 mg/dL mg/dL (8.4-10.2) Total Bilirubin 1.1 mg/dL mg/dL (0.2-1.3) AST 39 U/L H U/L (14-36) ALT 27 U/L U/L (6-35) Alkaline Phosphatase 86 U/L U/L (38-126) Total Protein 8.0 g/dL g/dL (6.3-8.2) Albumin 4.5 g/dL g/dL (3.5-5.1) Patient hx anesthesia problems: none Family hx anesthesia problems: none Results Review: All pre-operative results and documents have been reviewed as part of the pre-operative evaluation. ON LICENSE OF [facility] Past Medical History Medical History ANN-MARIE (acute kidney injury) Anemia With history of iron infusions. Anxiety Aortic valve regurgitation Echocardiogram in May 2018 showed normal left ventricular systolic function and size with mild concentric left ventricular hypertrophy and ejection fraction estimated at 60%. Mild aortic valve regurgitation noted with a valve area of 1.7 centimeters squared. BMI 21.0-21.9, adult BMI between 19-24,adult C
[2023-01-08] MEDS: LACTATED RINGERS 1,000 ML 30 ML IV CONT ×2 (16:00→18:47)
--- NOTE | 2023-01-08 16:27 | PM.CNOR ---
Assessment and Plan Assessment and plan (1) Closed intertrochanteric fracture of femur: Qualifiers: Encounter type: subsequent encounter Fracture alignment: nondisplaced Fracture healing: with routine healing Laterality: right Qualified Code(s): S72.144D - Nondisplaced intertrochanteric fracture of right femur, subsequent encounter for closed fracture with routine healing Code(s): S72.143A - Displaced intertrochanteric fracture of unspecified femur, initial encounter for closed fracture Status: Acute Assessment and Plan: FELICIA IS HERE FOR EVALUATION OF HER RIGHT HIP PAIN AFTER A FALL AND NOW WITH A DISPLACED RIGHT INTERTROCHANTERIC FEMUR FRACTURE. SHE WILL REQUIRE INSERTION OF IM HIP PANDA ONCE SHE HAS BEEN CLEARED BY INTERNAL MEDICINE. DISCUSSED NONOPERATIVE AND OPERATIVE TREATMENT OPTIONS WITH THE PATIENT. THE PATIENT'S QUESTIONS WERE ANSWERED. THE PATIENT DESIRES OPERATIVE TREATMENT. DISCUSSED __INSERTION OF INTRAMEDULLARY HIP PANDA RIGHT FEMUR . RISKS OF SURGERY INCLUDING BUT NOT LIMITED TO NEUROVASCULAR DAMAGE, WOUND COMPLICATIONS, BLOOD CLOT, PULMONARY EMBOLUS, STROKE, VA, ANESTHETIC RISKS UP TO AND INCLUDING WERE REVIEWED. CONTINUED PAIN AND POSSIBLE DYSFUNCTION WERE EXPLAINED. NO GUARANTEES WERE OFFERED. THE PATIENT UNDERSTANDS AND WISHES TO PROCEED. History of Present Illness HPI Consult date: 01/08/23 Chief complaint: R Intertrochanteric Fracture Narrative: FELICIA IS HERE FOR EVALUATION OF HER RIGHT HIP FOLLOWING A FALL FROM A FEW DAYS AGO. SHE WAS SEEN IN THE ED AND DIAGNOSED WITH A RIGHT INTER TROCHANTERIC HIP FRACTURE. SHE DENIES ANY OTHER EXTREMITY PAIN OR BACK OR NECK PAIN. SHE DENIES ANY LOSS OF CONSCIOUSNESS OR SOB OR CHEST PAIN Review of Systems Review of Systems: All systems reviewed & are unremarkable except as noted in HPI and below Constitutional: Constitutional: Denies chills, Denies fatigue, Denies fever(s), Denies malaise, Denies night sweats, Denies poor appetite and Denies weakness PMFSH Past Medical History Medical History ANN-MARIE (acute kidney injury) Anemia With history of iron infusions. Anxiety Aortic valve regurgitation Echocardiogram in May 2018 showed normal left ventricular systolic function and size with mild concentric left ventricular hypertrophy and ejection fraction estimated at 60%. Mild aortic valve regurgitation noted with a valve area of 1.7 centimeters squared. BMI 21.0-21.9, adult BMI between 19-24,adult Chronic kidney disease, stage 3 Baseline creatinine is 1.20. 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 She has been evaluated by a residential field manager Dr. camacho at [facility], and was told she had no active issues and needed no treatment. Hepatitis C Inactive Insomnia Kidney disease Left humeral fracture She was seen by Dr. Pearson on 02/17/2020 replace the IM nail left tumors fracture Left patella fracture Left wrist fracture Migraine headache Orofacial dyskinesia With chronic dry mouth. Osteoporosis Painful orthopaedic hardware Protein, urine, abnormal presence Rotator cuff tear, left Seizure History of seizure x2 after taking gabapentin. Surgical History Surgical History History of cholecystectomy History of repair of hiatal hernia History of surgery on left wrist ORIF left distal radius fracture in [place] [address] Hidalgo. Family History Family History Mother Diabetes mellitus Lung cancer Sibling Stomach cancer Sibling Non-Hodgkin lymphoma Social History Social History Social History: The patient is and lives in her own home in [place]. She designates her daughter, Liss Snow
--- NOTE | 2023-01-08 16:43 | WPDHPUPDATE1 ---
History and Physical Update Update Date/Time: 01/08/23 16:43 History and Physical has been reviewed, including an updated exam of the patient. There are NO changes in the patient's condition. Risks, benefits, and alternatives have been discussed and questions answered. Patient agrees to proceed with procedure.
[2023-01-08] MEDS: TRANEXAMIC ACID 1,000MG/ISO100 1,000 MG/100 ML BAG 200 MG IVPB (17:06)
[2023-01-08] MEDS: ceFAZolin 2 GM/D5W 50 ML 2 GM/50 ML BAG IVPB (17:44)
[2023-01-08] MEDS: TRANEXAMIC ACID 1,000 MG/10 ML AMPUL 1000 MG IV PUSH (18:33)
--- NOTE | 2023-01-08 18:40 | P.OP_ITS ---
Procedure Note - Detailed Date of Procedure 01/08/23 Pre-op Diagnosis R Intertrochanteric Femur Fracture Post-op Diagnosis Same Procedure Performed INSERTION IT PANDA RIGHT HIP Surgeon Scott Hidalgo MD Anesthesia General Description of Procedure THE PATIENT WAS TAKEN TO THE OPERATING ROOM AND PLACED ON A FRACTURE TABLE AFTER GIVEN GENERAL ANESTHESIA. THE RIGHT LOWER EXTREMITY WAS PLACED IN A TRACTION BOOT AND USING SOME TRACTION AND INTERNAL ROTATION THE INTER TROCHANTERIC FRACTURE WAS REDUCED TO ANATOMIC POSITION. NEXT THE RIGHT LOWER EXTREMITY WAS PREPPED AND DRAPED IN THE STERILE FASHION. AN INCISION WAS MADE PROXIMAL TO THE TIP OF THE GREATER TROCHANTER AND DISSECTION CONTINUED TILL THE TIP OF THE GREATER TROCHANTER WAS PALPATED. A GUIDE PIN WAS PLACED DOWN THE FEMORAL CANAL AND PAST THE FRACTURE SITE. THIS WAS CHECKED ON FLUOROSCOPY AND FOUND TO BE IN GOOD POSITION. AN INITIAL REAMER WAS USED TO REAM THE FEMORAL CANAL. A 11 BY 200 MM ARTHREX IT PANDA WAS INSERTED TILL THE CORRECT POSITION WAS IDENTIFIED ON XRAY. A GUIDE PIN WAS INSERTED THROUGH THE FEMORAL NECK AT 125 DEG ANGLE TILL I T REACHED THE TIP OF THE SUB CHONDRAL BONE SEEN ON XRAY. AFTER REAMING, LAG SCREW WAS INSERTED MEASURING 90 MM. XRAYS SHOWED IT TO BE IN GOOD POSITION. THE LAG SCREW WAS LOCKED PROXIMALLY. NEXT A DISTAL LOCKING SCREW WAS PLACED ACROSS THE PANDA AND WAS IN GOOD POSITION ON XRAY. THE TRACTION WAS RELEASED. THE WOUNDS WERE WASHED. THE DEEP FASCIA WAS REPAIRED WITH #1 VICRYL SUTURE, THE SUB CUTANEOUS LAYER WITH 2-0 VICRYL, AND THE SKIN WITH [place]. THE WOUNDS WERE WASHED AND THEN STERILE DRESSING WAS APPLIED. PATIENT WAS EXTUBATED AND SENT TO RECOVERY ROOM. Estimated Blood Loss 100 Urine Output 150 Complications No immediate complications Condition Stable Disposition PACU
--- NOTE | 2023-01-08 20:50 | PHAR ---
PT'S HOME MED (Suvorexant [Belsomra] 15 mg tablet) VERIFIED BY PHARMACY
[2023-01-08] MEDS: FAMOTIDINE 20 MG TABLET PO (20:59)
[2023-01-08] MEDS: DEXTROSE 5%/0.45% SOD CHL 1,000 ML 80 ML IV CONT (20:59)
[2023-01-08] MEDS: MIRTAZAPINE 15 MG TABLET PO (20:59)
[2023-01-08] MEDS: HYDROcodone/acetaminophen (*CRX) 7.5-325 MG TABLET 1 TAB PO (21:05)
[2023-01-09] MEDS: ceFAZolin 1 GM/NS 50 ML 1 GM/50 ML BAG IVPB ×3 (00:54→17:02)
[2023-01-09 04:15] VITALS: BP 155/80; PULSE 82; RESP 16; TEMP 36.6; O2SAT 100
[2023-01-09 06:16] LABS: Hematocrit 30.8 % (37.0-47.0); Mean Corpuscular HGB Conc 32.5 g/dl (32-36); Mean Corpuscular Hemoglobin 31.3 pg (26-34); Mean Corpuscular Volume 96.6 fl (80-100); Mean Platelet Volume 11.2 fl (7.4-10.4); Platelet Count Result 191 k/mm3 (150-375); Red Blood Count 3.19 M/mm3 (4.2-5.4); Red Cell Distribution Width 12.8 % (11.5-14.5); White Blood Count 7.5 K/mm3 (4.5-10.0)
[2023-01-09 06:34] LABS: Anion Gap 5 mmol/L (8-16); Blood Urea Nitrogen 24 mg/dL (7-17); Calcium 8.3 mg/dL (8.4-10.2); Carbon Dioxide 23 mmol/L (22-30); Chloride 104 mmol/L (98-107); Estimated CRCL calculation 46 ml/min; Estimated Glomerular Filt Rate > 60; Glucose 146 mg/dL (65-110); Potassium 4.5 mmol/L (3.4-5.0); Sodium 132 mmol/L (137-145)
[2023-01-09 08:00] VITALS: BP 135/67; PULSE 75; RESP 14; TEMP 36.4; O2SAT 97
[2023-01-09] MEDS: clonazePAM (*CRX) 0.5 MG TABLET 2 MG PO ×3 (08:22→17:02)
[2023-01-09] MEDS: lisinopriL 20 MG TABLET 40 MG PO (08:23)
[2023-01-09] MEDS: SENNA/DOCUSATE SODIUM TABLET 2 TAB PO ×2 (08:23→17:02)
[2023-01-09] MEDS: CELECOXIB 200 MG CAPSULE PO (08:23)
[2023-01-09] MEDS: FAMOTIDINE 20 MG TABLET PO ×2 (08:23→21:29)
[2023-01-09] MEDS: FONDAPARINUX SODIUM 2.5 MG/0.5 ML SYRINGE SUB-Q (08:24)
[2023-01-09] MEDS: polyethylene glycoL 3350 17 GM POWD.PACK PO (08:24)
[2023-01-09] MEDS: PANTOPRAZOLE 40 MG TABLET PO (08:24)
--- NOTE | 2023-01-09 09:26 | WPDANESPN ---
Anes - Prog Note Post-Op Date/Time: 01/09/23 09:26 Cardiovascular status: normal Respiratory status: normal Airway patency: baseline Mental status: baseline Post-Op hydration status: normal Vital Signs: Last Vital Signs Temp 97.5 F L 01/09/23 08:00 Pulse 75 01/09/23 08:00 Resp 14 01/09/23 08:00 BP 135/67 01/09/23 08:00 Pulse Ox 97 01/09/23 08:00 O2 Del Method Room Air 01/09/23 08:21 O2 Flow Rate 2 01/08/23 19:45 Pain Score (VAS): 1 I/O: Intake & Output 01/08/23 01/09/23 01/09/23 23:59 07:59 15:59 Intake Total 250 300 Output Total 450 400 Balance -200 -100 Laboratory Tests 01/09/23 05:43 01/09/23 05:43 01/09/23 01/09/23 05:43 05:43 WBC 7.5 RBC 3.19 L Hgb 10.0 L D Hct 30.8 L MCV 96.6 MCH 31.3 MCHC 32.5 RDW 12.8 Plt Count 191 MPV 11.2 H Sodium 132 L Potassium 4.5 Chloride 104 Carbon Dioxide 23 Anion Gap 5 L BUN 24 H Creatinine 0.70 Estim Creat Clear Calc 46 Estimated GFR > 60 Glucose 146 H Calcium 8.3 L Magnesium 2.0 Post-procedural complaints: none Patient Feedback: Patient satisfied with anesthetic care.
[2023-01-09] MEDS: HYDROcodone/acetaminophen (*CRX) 7.5-325 MG TABLET 1 TAB PO ×2 (10:18→17:02)
[2023-01-09 12:00] VITALS: BP 159/84; PULSE 75; RESP 12; TEMP 36.4; O2SAT 98
--- NOTE | 2023-01-09 13:26 | PM.PNORT ---
Progress Note: A&P Assessment and Plan (1) Closed intertrochanteric fracture of femur: Qualifiers: Encounter type: subsequent encounter Fracture alignment: nondisplaced Fracture healing: with routine healing Laterality: right Qualified Code(s): S72.144D - Nondisplaced intertrochanteric fracture of right femur, subsequent encounter for closed fracture with routine healing Code(s): S72.143A - Displaced intertrochanteric fracture of unspecified femur, initial encounter for closed fracture Status: Acute Assessment and Plan: POD #1 : Insertion IT Surinder Right Hip Continue PT/OT. WBAT. Walker. HIGH FALL RISK. Continue pain control. Ice Hip. Protect skin. DVT prophylaxis with Arixtra x14 days. SCDs. Incentive Spirometry Use reviewed. Monitor Dressing. Change prior to discharge to Mepilex Silver. Bowel Regimen. Dispo: ZACHARY pending progress with PT/OT and medical clearance. Subjective Subjective Date/Time Seen: 01/09/23 13:26 Post Op day: 1 Interval history: POD #1: Insertion IT Surinder Right Hip Patient doing very well. Pain well controlled. No new concerns. Review of Systems Review of Systems: All systems reviewed & are unremarkable except as noted in HPI and below Constitutional: Constitutional: Denies chills, Denies fever(s), Denies headache(s), Denies lethargy and Reports weakness ENT: Denies headache(s) Cardiovascular: Cardiovascular: Denies chest pain, Denies diaphoresis, Denies lightheadedness, Denies palpitations, Denies dyspnea and Denies dyspnea on exertion Respiratory: Respiratory: Denies cough, Denies dyspnea and Denies dyspnea on exertion Gastrointestinal: Gastrointestinal: Denies constipation, Denies diarrhea, Denies nausea and Denies vomiting Genitourinary: Genitourinary: Reports urinary frequency, Denies dysuria and Denies urinary hesitancy Musculoskeletal: Musculoskeletal: Reports joint swelling (Right Hip ) and Reports limited range of motion (Right Hip due to recent surgery ) Neurologic: Denies headache(s) and Reports weakness Endocrine: Endocrine: Denies palpitations Exam Const: General: comfortable and no acute distress Resp: Effort & Inspection: normal respiratory effort Cardio: Rate: regular rate Rhythm: regular rhythm GI: Inspection: non-distended Skin: General skin exam: normal color Other: Incision right hip c/d/i. Surrounding tissue without redness/warmth. Mild swelling consistent with recent surgery. No drainage. Neuro: Cognition (Neuro): normal cognition Speech: normal speech Extrem: Right lower extremity: normal to inspection, normal capillary refill, hip/thigh Details: tenderness Location: of the hip (Thigh soft ) Location: laterally and anteriorly, swelling Location: at the hip, abnormal ROM (limited consistent with recent surgery ) Details: pain with active ROM during and pain with passive ROM during and other (Incision c/d/i. ); no deformity and no unusual warmth, knee Details: normal to inspection; no tenderness and no swelling, lower leg (Negative Luther's Sign ) Details: normal to inspection and no edema; no tenderness, ankle (+ankle dorsiflexion/plantarflexion) Details: normal to inspection and no edema; no tenderness, no swelling and no ecchymosis and foot Details: normal capillary refill, toes with normal ROM, vascular exam Details: dorsalis pedis pulse present and motor-sensory exam Details: light-touch normal; no tenderness Objective Data Vital Signs Vital Signs: Vital Signs - 24 hr 01/08/23 13:46 01/08/23 18:47 01/08/23 19:00 Temperature 36.9 C 36.3 C L Pulse Rate 78 82 83 Respiratory Rate 16 10 L 8 L Blood Pressure 110/80 192/90 H 185/87 H Pulse Oximetry 100 100 Oxygen Delivery Room Air Simple Face Mask Simple Face Mask Oxygen Flow Rate 6 6 01/08/23 19:15 01/08/23 19:30 01/08/23 19:45 Temperature Pulse Rate 79 81 81 Respiratory Rate 10 L 10 L 13 Blood Pressure 180/89 H 173/86 H 169/84 H Pulse Oximetry 100 95
[2023-01-09 16:00] VITALS: BP 135/71; PULSE 66; RESP 12; TEMP 36.6; O2SAT 98
--- NOTE | 2023-01-09 16:50 | PM.IMPN ---
Progress Note: A&P Assessment and Plan (1) Closed intertrochanteric fracture of femur: Qualifiers: Encounter type: subsequent encounter Fracture alignment: nondisplaced Fracture healing: with routine healing Laterality: right Qualified Code(s): S72.144D - Nondisplaced intertrochanteric fracture of right femur, subsequent encounter for closed fracture with routine healing Code(s): S72.143A - Displaced intertrochanteric fracture of unspecified femur, initial encounter for closed fracture Status: Acute Assessment and Plan: Bed rest Orthopedic consult Pain management 01/09/2023 interval history: 82-year-old female status post fall fracyure of the right hip, complained of persistent pain in the hip with any movement, being treated with a pain medication, patient was seen by Orthopedic and and ORIF POD#1, today patient is pain is much improved and did participate in PT, will continue to monitor, patient will benefit going to acute rehab. (2) Accidental fall from chair: Qualifiers: Encounter type: subsequent encounter Qualified Code(s): W07.XXXD - Fall from chair, subsequent encounter Code(s): W07.XXXA - Fall from chair, initial encounter Status: Acute Assessment and Plan: Fall precautions (3) Anxiety and depression: Code(s): F41.9 - Anxiety disorder, unspecified; F32.A - Depression, unspecified Status: Acute Assessment and Plan: Continue home meds (4) Diastolic dysfunction: Code(s): I51.89 - Other ill-defined heart diseases Status: Acute Assessment and Plan: Unchanged (5) CHF (congestive heart failure): Qualifiers: Heart failure type: unspecified Heart failure chronicity: acute on chronic Qualified Code(s): I50.9 - Heart failure, unspecified Code(s): I50.9 - Heart failure, unspecified Status: Acute Assessment and Plan: Unchanged (6) Generalized weakness: Code(s): R53.1 - Weakness Status: Acute Assessment and Plan: PT OT when clinically able to do so (7) GERD (gastroesophageal reflux disease): Code(s): K21.9 - Gastro-esophageal reflux disease without esophagitis Status: Acute Assessment and Plan: PPI Subjective Date/time seen: 01/09/23 16:50 01/09/2023 interval history: 82-year-old female status post fall fracyure of the right hip, complained of persistent pain in the hip with any movement, being treated with a pain medication, patient was seen by Orthopedic and and ORIF POD#1, today patient is pain is much improved and did participate in PT, will continue to monitor, patient will benefit going to acute rehab. Review of Systems Constitutional: Constitutional: Denies chills, Denies fatigue, Denies fever(s), Denies malaise, Denies night sweats, Denies poor appetite and Denies weakness Exam Narrative: elderly frail Patient is comfortable, NAD HEENT: eyes are clear and none icteric LUNGS: normal respiratory ABD: not distended Lower extremities: no edema SKIN: nonjaundiced Neuro: grossly intact. Objective Data Vital Signs Vital Signs: Vital Signs - 24 hr 01/08/23 18:47 01/08/23 19:00 01/08/23 19:15 Temperature 97.4 F L Pulse Rate 82 83 79 Respiratory Rate 10 L 8 L 10 L Blood Pressure 192/90 H 185/87 H 180/89 H Pulse Oximetry 100 100 100 Oxygen Delivery Simple Face Mask Simple Face Mask Simple Face Mask Oxygen Flow Rate 6 6 6 01/08/23 19:30 01/08/23 19:45 01/08/23 20:28 Temperature 97.6 F Pulse Rate 81 81 77 Respiratory Rate 10 L 13 18 Blood Pressure 173/86 H 169/84 H 155/86 H Pulse Oximetry 95 100 100 Oxygen Delivery Room Air Nasal Cannula Oxygen Flow Rate 2 01/08/23 21:01 01/08/23 21:30 01/08/23 23:51 Temperature 97.6 F 97.2 F L 97 F L Pulse Rate 78 82 73 Respiratory Rate 16 18 16 Blood Pressure 161/86 H 138/63 125/62 Pulse Oximetry 100 99 98 Oxygen Delivery Oxygen Flow Rate 01/09/23 04:
[2023-01-09] MEDS: ONDANSETRON INJ 4 MG/2 ML VIAL IV PUSH (17:45)
[2023-01-09] MEDS: MIRTAZAPINE 15 MG TABLET PO (21:29)
[2023-01-09 22:09] VITALS: BP 116/70; PULSE 72; RESP 18; TEMP 36.2; O2SAT 97
[2023-01-10 05:16] VITALS: BP 152/69; PULSE 81; RESP 18; TEMP 36.6; O2SAT 96
[2023-01-10] MEDS: MORPHINE SULFATE (*CRX) 2 MG/ML INJ IV PUSH (05:38)
[2023-01-10 05:43] LABS: Hematocrit 31.2 % (37.0-47.0); Hemoglobin 10.2 g/dL (12.0-15.0); Mean Corpuscular HGB Conc 32.7 g/dl (32-36); Mean Corpuscular Volume 97.8 fl (80-100); Platelet Count Result 186 k/mm3 (150-375); Red Blood Count 3.19 M/mm3 (4.2-5.4); Red Cell Distribution Width 13.1 % (11.5-14.5); White Blood Count 6.8 K/mm3 (4.5-10.0)
[2023-01-10 05:55] LABS: Anion Gap 5 mmol/L (8-16); Blood Urea Nitrogen 21 mg/dL (7-17); Calcium 8.3 mg/dL (8.4-10.2); Carbon Dioxide 25 mmol/L (22-30); Chloride 103 mmol/L (98-107); Estimated CRCL calculation 46 ml/min; Estimated Glomerular Filt Rate > 60; Glucose 85 mg/dL (65-110); Magnesium 2.1 mg/dL (1.6-2.3); Potassium 4.2 mmol/L (3.4-5.0); Sodium 133 mmol/L (137-145)
--- NOTE | 2023-01-10 08:30 | PM.DS ---
DS: Admitting Diagnosis Discharge Date 01/10/2023 Admitting Diagnosis Right leg pain DS: Discharge Diagnosis Discharge Diagnosis (1) Closed intertrochanteric fracture of femur: Qualifiers: Encounter type: subsequent encounter Fracture alignment: nondisplaced Fracture healing: with routine healing Laterality: right Qualified Code(s): S72.144D - Nondisplaced intertrochanteric fracture of right femur, subsequent encounter for closed fracture with routine healing Code(s): S72.143A - Displaced intertrochanteric fracture of unspecified femur, initial encounter for closed fracture Status: Acute Assessment and Plan: Bed rest Orthopedic consult Pain management 01/09/2023 interval history: 82-year-old female status post fall fracyure of the right hip, complained of persistent pain in the hip with any movement, being treated with a pain medication, patient was seen by Orthopedic and and ORIF POD#1, today patient is pain is much improved and did participate in PT, will continue to monitor, patient will benefit going to acute rehab. (2) Accidental fall from chair: Qualifiers: Encounter type: subsequent encounter Qualified Code(s): W07.XXXD - Fall from chair, subsequent encounter Code(s): W07.XXXA - Fall from chair, initial encounter Status: Acute Assessment and Plan: Fall precautions (3) Anxiety and depression: Code(s): F41.9 - Anxiety disorder, unspecified; F32.A - Depression, unspecified Status: Acute Assessment and Plan: Continue home meds (4) Diastolic dysfunction: Code(s): I51.89 - Other ill-defined heart diseases Status: Acute Assessment and Plan: Unchanged (5) CHF (congestive heart failure): Qualifiers: Heart failure type: unspecified Heart failure chronicity: acute on chronic Qualified Code(s): I50.9 - Heart failure, unspecified Code(s): I50.9 - Heart failure, unspecified Status: Acute Assessment and Plan: Unchanged (6) Generalized weakness: Code(s): R53.1 - Weakness Status: Acute Assessment and Plan: PT OT when clinically able to do so (7) GERD (gastroesophageal reflux disease): Code(s): K21.9 - Gastro-esophageal reflux disease without esophagitis Status: Acute Assessment and Plan: PPI DS: Summary Hospital Course Reason for hospitalization: Right leg pain Narrative: This is an 82-year-old female with past medical history significant for hypertension, GERD, anemia, generalized anxiety disorder, esophageal stricture, GERD, hepatitis-C.? Patient comes to the emergency room a 2nd time due to in pain upon weight-bearing of the right leg initially presented earlier in the week preliminary workup was nonrevealing patient returns due to worsening pain with ambulation new imaging reveals a right intertrochanteric fracture.? Patient has been admitted for further evaluation management and treatment. Hospital Course: 82-year-old female status post fall fracture of the right hip, complained of persistent pain in the hip with any movement, being treated with a pain medication, patient was seen by Orthopedic and and ORIF POD#2,? today patient is pain is much improved and did participate in PT, will continue to monitor,? patient will benefit going to acute rehab. today will discharge patient to rehab Time Spent with Patient Time attestation: Total time spent providing and/or coordinating discharge services: Exam Narrative: elderly frail Patient is comfortable, NAD HEENT: eyes are clear and none icteric LUNGS: normal respiratory ABD: not distended Lower extremities: no edema SKIN: nonjaundiced Neuro: grossly intact. DS: Data Data Completed and Pending Labs on day of discharge: Labs from last 24 hours 01/10/23 01/10/23 05:07 05:07 WBC 6.8 RBC 3.19 L Hgb 10.2 L Hct 31.2 L MCV 97.8 MCH 32.0 MCHC 32.7 RDW 13.1 Plt
--- NOTE | 2023-01-10 09:10 | PM.PNORT ---
Progress Note: A&P Assessment and Plan (1) Closed intertrochanteric fracture of femur: Qualifiers: Encounter type: subsequent encounter Fracture alignment: nondisplaced Fracture healing: with routine healing Laterality: right Qualified Code(s): S72.144D - Nondisplaced intertrochanteric fracture of right femur, subsequent encounter for closed fracture with routine healing Code(s): S72.143A - Displaced intertrochanteric fracture of unspecified femur, initial encounter for closed fracture Status: Acute Assessment and Plan: POD #2: Insertion IT Surinder Right Hip Continue PT/OT. WBAT. Walker. HIGH FALL RISK. Continue pain control. Ice Hip. Protect skin. DVT prophylaxis with Arixtra x28 days. SCDs. Incentive Spirometry Use reviewed. Monitor Dressing. Change prior to discharge to Mepilex Silver. Bowel Regimen. Dispo: ZACHARY pending progress with PT/OT and medical clearance. Subjective Subjective Date/Time Seen: 01/10/23 09:10 Post Op day: 2 Interval history: POD #2: Insertion IT Surinder Right Hip Patient doing very well, up in the bathroom getting ready. Pain well controlled. No new concerns. Review of Systems Review of Systems: All systems reviewed & are unremarkable except as noted in HPI and below Constitutional: Constitutional: Denies chills, Denies fever(s), Denies headache(s), Denies lethargy and Reports weakness ENT: Denies headache(s) Cardiovascular: Cardiovascular: Denies chest pain, Denies diaphoresis, Denies lightheadedness, Denies palpitations, Denies dyspnea and Denies dyspnea on exertion Respiratory: Respiratory: Denies cough, Denies dyspnea and Denies dyspnea on exertion Gastrointestinal: Gastrointestinal: Denies constipation, Denies diarrhea, Denies nausea and Denies vomiting Genitourinary: Genitourinary: Reports urinary frequency, Denies dysuria and Denies urinary hesitancy Musculoskeletal: Musculoskeletal: Reports joint swelling (Right Hip ) and Reports limited range of motion (Right Hip due to recent surgery ) Neurologic: Denies headache(s) and Reports weakness Endocrine: Endocrine: Denies palpitations Exam Const: General: comfortable and no acute distress Resp: Effort & Inspection: normal respiratory effort Cardio: Rate: regular rate Rhythm: regular rhythm GI: Inspection: non-distended Skin: General skin exam: normal color Other: Incision right hip c/d/i. Surrounding tissue without redness/warmth. Mild swelling consistent with recent surgery. No drainage. Neuro: Cognition (Neuro): normal cognition Speech: normal speech Extrem: Right lower extremity: normal to inspection, normal capillary refill, hip/thigh Details: tenderness Location: of the hip (Thigh soft ) Location: laterally and anteriorly, swelling Location: at the hip, abnormal ROM (limited consistent with recent surgery ) Details: pain with active ROM during and pain with passive ROM during and other (Incision c/d/i. ); no deformity and no unusual warmth, knee Details: normal to inspection; no tenderness and no swelling, lower leg (Negative Luther's Sign ) Details: normal to inspection and no edema; no tenderness, ankle (+ankle dorsiflexion/plantarflexion) Details: normal to inspection and no edema; no tenderness, no swelling and no ecchymosis and foot Details: normal capillary refill, toes with normal ROM, vascular exam Details: dorsalis pedis pulse present and motor-sensory exam Details: light-touch normal; no tenderness Objective Data Vital Signs Vital Signs: Vital Signs - 24 hr 01/09/23 09:26 01/09/23 12:00 01/09/23 16:00 Temperature 36.4 C 36.6 C Pulse Rate 75 66 Respiratory Rate 12 12 Blood Pressure 159/84 H 135/71 Pulse Oximetry 98 98 Oxygen Delivery Room Air 01/09/23 20:00 01/09/23 22:09 01/10/23 05:16 Temperature 36.2 C L 36.6 C Pulse Rate 72 81 Respiratory Rate 18 18 Blood Pressure 116/70 152/69 H Pulse Oximetry 97 96 Oxygen Delivery Room Air Intake/Output
[2023-01-10] MEDS: SENNA/DOCUSATE SODIUM TABLET 2 TAB PO (09:33)
[2023-01-10] MEDS: PANTOPRAZOLE 40 MG TABLET PO (09:33)
[2023-01-10] MEDS: polyethylene glycoL 3350 17 GM POWD.PACK PO (09:33)
[2023-01-10] MEDS: FAMOTIDINE 20 MG TABLET PO (09:33)
[2023-01-10] MEDS: clonazePAM (*CRX) 0.5 MG TABLET 2 MG PO (09:33)
[2023-01-10] MEDS: lisinopriL 20 MG TABLET 40 MG PO (09:33)
[2023-01-10] MEDS: FONDAPARINUX SODIUM 2.5 MG/0.5 ML SYRINGE SUB-Q (09:34)
[2023-01-10] MEDS: CELECOXIB 200 MG CAPSULE PO (09:34)
[2023-01-10 14:00] VITALS: BP 139/71; PULSE 74; RESP 14; TEMP 36.5; O2SAT 99
== END 2023-01-10 15:30 | DRG 481 ==
LOC: ANHED 21:50 → ANH3MED 01-08 00:50
PROVIDERS: Orthopaedic Surgery; Admitting Provider Internal Medicine; Emergency Provider Physician Assistant; PCP Family Medicine; Visit Provider Family Medicine
PROC: 0QS634Z Reposition Right Upper Femur with Internal Fixation Device, Percutaneous Approach (ICD-10-PCS; CPT 27245; principal; 2023-01-08 15:00)
DX: S72.144A Nondisplaced intertrochanteric fracture of right femur, initial encounter for closed fracture (principal); I13.0 Hypertensive heart and chronic kidney disease with heart failure and stage 1 through stage 4 chronic kidney disease, or unspecified chronic kidney disease; I50.9 Heart failure, unspecified; D64.9 Anemia, unspecified; F41.1 Generalized anxiety disorder; G47.00 Insomnia, unspecified; I35.1 Nonrheumatic aortic (valve) insufficiency; K21.9 Gastro-esophageal reflux disease without esophagitis; K22.2 Esophageal obstruction; M81.0 Age-related osteoporosis without current pathological fracture; N18.30 Chronic kidney disease, stage 3 unspecified; W07.XXXA Fall from chair, initial encounter; Z90.49 Acquired absence of other specified parts of digestive tract; Z66 Do not resuscitate
CPT/HCPCS: 36415; 71045; 72192; 73502; 73564; 80048; 80053; 83735; 85025; 85027; 85610; 85730; 93005; 96361; 96374; 96375; 96376; 97110; 97116; 97161; 97165; 97530; 97535; 99199; 99285; A9270; C1713; G0378; J0131; J0690; J1100; J1170; J1652; J2270; J2405; J2704; J3010; J7030; J7120

== ENCOUNTER 2023-06-19 19:43 | Emergency (ER) | payer MEDICARE, BC, SELFPAY ==
[2023-06-19 19:54] VITALS: BP 162/100; PULSE 72; RESP 18; TEMP 35.8; O2SAT 96
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
== END 2023-06-19 20:12 | disposition home or self-care (01) ==
PROVIDERS: Emergency Provider Nurse Practitioner; PCP Family Medicine
DX: N30.01 Acute cystitis with hematuria (principal); I35.1 Nonrheumatic aortic (valve) insufficiency; I13.10 Hypertensive heart and chronic kidney disease without heart failure, with stage 1 through stage 4 chronic kidney disease, or unspecified chronic kidney disease; N18.30 Chronic kidney disease, stage 3 unspecified; K21.9 Gastro-esophageal reflux disease without esophagitis; M81.0 Age-related osteoporosis without current pathological fracture; F41.9 Anxiety disorder, unspecified
CPT/HCPCS: 81003; 87086; 87088; 99213; G0463

== ENCOUNTER 2023-09-06 13:39 | Emergency (ER) | payer MEDICARE, BC, SELFPAY ==
[2023-09-06 13:52] VITALS: BP 145/64; PULSE 67; RESP 16; TEMP 36.6; O2SAT 98
--- NOTE | 2023-09-06 14:03 | ED.FEMALEGU ---
HPI - Female Genitourinary General Chief complaint: Urogenital-Female Stated complaint: Uti symptoms Time Seen by Provider: 09/06/23 14:27 Source: patient, RN notes reviewed and old records reviewed Mode of arrival: ambulatory Limitations: no limitations History of Present Illness HPI Narrative: 83-year-old female presents to the [facility] with concerns for a UTI. Patient presents with daughter Liss to the [facility]. Reports burning, frequency, urgency since yesterday, abnormal smell to her urine. Denies abdominal pain, chest pain, shortness of breath. Denies fevers. No nausea vomiting or diarrhea. Related Data Home Medications Medication Instructions Recorded Confirmed pantoprazole 40 mg tablet,delayed 40 mg PO DAILY 06/30/20 06/24/23 release Allergies Allergy/AdvReac Type Severity Reaction Status Date / Time gabapentin Allergy Severe Seizure Verified 06/24/23 16:09 Review of Systems Review of Systems: All systems reviewed & are unremarkable except as noted in HPI and below Constitutional: Constitutional: Reports no additional constitutional complaints Eyes: Eyes: Reports no additional eye complaints ENT: Reports system reviewed and no additional complaints, except as documented Cardiovascular: Cardiovascular: Reports no additional cardiovascular complaints, Denies chest pain and Denies dyspnea Respiratory: Respiratory: Reports no additional respiratory complaints, Denies chest congestion, Denies cough and Denies dyspnea Gastrointestinal: Gastrointestinal: Reports no additional gastrointestinal complaints, Denies abdominal pain, Denies nausea and Denies vomiting Genitourinary: Genitourinary: Reports as per HPI Musculoskeletal: Musculoskeletal: Reports no additional musculoskeletal complaints Integumentary/Breasts: Skin/Breast: Reports system reviewed and no additional complaints, except as docu Neurologic: Reports system reviewed and no additional complaints, except as documented Psychiatric: Psychiatric: Reports no additional psychiatric complaints Allergic/Immunologic: Allergic/Immunologic: Reports no additional allergic/immunologic complaints [facility] Past Medical History Medical History ANN-MARIE (acute kidney injury) Anemia With history of iron infusions. Anxiety Aortic valve regurgitation Echocardiogram in May 2018 showed normal left ventricular systolic function and size with mild concentric left ventricular hypertrophy and ejection fraction estimated at 60%. Mild aortic valve regurgitation noted with a valve area of 1.7 centimeters squared. BMI 21.0-21.9, adult BMI between 19-24,adult Chronic kidney disease, stage 3 Baseline creatinine is 1.20. 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 She has been evaluated by a tv news director Dr. camacho at [facility], and was told she had no active issues and needed no treatment. Hepatitis C Inactive Insomnia Kidney disease Left humeral fracture She was seen by Dr. Pearson on 02/17/2020 replace the IM nail left tumors fracture Left patella fracture Left wrist fracture Migraine headache Orofacial dyskinesia With chronic dry mouth. Osteoporosis Painful orthopaedic hardware Protein, urine, abnormal presence Rotator cuff tear, left Seizure History of seizure x2 after taking gabapentin. Surgical History Surgical History History of cholecystectomy History of repair of hiatal hernia History of surgery on left wrist ORIF left distal radius fracture in August [address] Hidalgo. Family History Family History Mother Diabetes mellitus Lung cancer Sibling Stomach cancer Sibling Non-Hodgkin lymphoma Social History Social History (Reviewed 09/06/23 @ 19:58 by Radha Multani
== END 2023-09-06 14:38 | disposition home or self-care (01) ==
PROVIDERS: Emergency Provider Nurse Practitioner; PCP Family Medicine
DX: N30.01 Acute cystitis with hematuria (principal); I12.9 Hypertensive chronic kidney disease with stage 1 through stage 4 chronic kidney disease, or unspecified chronic kidney disease; N18.30 Chronic kidney disease, stage 3 unspecified; K21.9 Gastro-esophageal reflux disease without esophagitis; M81.0 Age-related osteoporosis without current pathological fracture
CPT/HCPCS: 81003; 87077; 87086; 87186; 99213; G0463

== ENCOUNTER 2024-01-25 08:26 | Emergency (ER) | payer MEDICARE, BC, SELFPAY ==
[2024-01-25 08:34] VITALS: BP 158/84; PULSE 82; RESP 16; TEMP 36.9; O2SAT 98
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
== END 2024-01-25 09:06 | disposition home or self-care (01) ==
PROVIDERS: Emergency Provider Nurse Practitioner Family; PCP Family Medicine
DX: N39.0 Urinary tract infection, site not specified (principal); B96.20 Unspecified Escherichia coli [E. coli] as the cause of diseases classified elsewhere; I35.1 Nonrheumatic aortic (valve) insufficiency; I12.9 Hypertensive chronic kidney disease with stage 1 through stage 4 chronic kidney disease, or unspecified chronic kidney disease; N18.30 Chronic kidney disease, stage 3 unspecified; I10 Essential (primary) hypertension; K21.9 Gastro-esophageal reflux disease without esophagitis; M81.0 Age-related osteoporosis without current pathological fracture
CPT/HCPCS: 81003; 87077; 87086; 87088; 87186; 99213; G0463

== ENCOUNTER 2024-01-29 14:15 | Emergency (ER) | payer MEDICARE, BC, SELFPAY ==
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
[2024-01-29 14:32] VITALS: BP 129/68; PULSE 68; RESP 16; TEMP 36.6; O2SAT 98
== END 2024-01-29 14:40 | disposition short-term general hospital (02) ==
PROVIDERS: Emergency Provider Nurse Practitioner Family; PCP Family Medicine
DX: M79.662 Pain in left lower leg (principal); R22.42 Localized swelling, mass and lump, left lower limb; I12.9 Hypertensive chronic kidney disease with stage 1 through stage 4 chronic kidney disease, or unspecified chronic kidney disease; N18.30 Chronic kidney disease, stage 3 unspecified; K21.9 Gastro-esophageal reflux disease without esophagitis; M81.0 Age-related osteoporosis without current pathological fracture
CPT/HCPCS: 99212; G0463

== ENCOUNTER 2024-01-29 14:58 | Emergency (ER) | payer MEDICARE, BC, SELFPAY ==
--- NOTE | ~2024-01-29 | XR_ITS ---
EXAMINATION: XR knee LT min 4V DATE: 01/29/2024 18:44 INDICATION: Left knee pain TECHNIQUE: Four views of the left knee were obtained. COMPARISON: None. FINDINGS: Alignment is normal. No fracture or osteochondral lesion. There is moderate tricompartmenta l osteoarthritis of the knee. Calcification of the menisci is noted. No joint effusion/synovitis. Ca lcified atherosclerosis is noted. IMPRESSION: 1. Osteoarthritis without acute osseous abnormality. Reviewed, dictated and finalized at location F.
--- NOTE | ~2024-01-29 | XR_ITS ---
EXAMINATION: XR tibia fibula LT 2V INDICATION: Left leg pain TECHNIQUE: Two views of the left tibia and fibula are obtained. COMPARISON: None available FINDINGS: Bone alignment is normal. There is no fracture. There is moderate osteoarthritis of the kne e and ankle. IMPRESSION: 1. No acute osseous abnormality. Reviewed, dictated and finalized at location F.
--- NOTE | ~2024-01-29 | US_ITS ---
EXAMINATION: US venous doppler [facility] DATE: 01/29/2024 18:06 INDICATION: Left lower limb pain TECHNIQUE: Hernandez scale images without and with compression and Doppler images of the left lower extrem ity veins were obtained. COMPARISON: 03/27/2021 FINDINGS: The left common femoral vein, profunda femoral vein, femoral vein, popliteal vein, peroneal trunk, posterior tibial veins, and greater saphenous vein are patent. IMPRESSION: 1. Patent left lower extremity veins. No evidence of deep venous thrombosis. Reviewed, dictated and finalized at location F.
[2024-01-29 15:05] VITALS: BP 126/66; PULSE 70; RESP 16; TEMP 36.6; O2SAT 96
[2024-01-29 18:00] VITALS: BP 108/63; PULSE 65; RESP 18; TEMP 36.8; O2SAT 99
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
[2024-01-29] MEDS: ACETAMINOPHEN 325 MG TABLET 650 MG PO (18:33)
[2024-01-29 19:26] LABS: Basophils Percent Auto 0.7 % (0.2-1.2); Eosinophils Absolute Auto 0.2 K/mm3 (0-0.3); Eosinophils Percent Auto 3.3 % (0-4.4); Hematocrit 39.8 % (37.0-47.0); Hemoglobin 13.1 g/dL (12.0-15.0); Immature Granulocyte Absolute 0.02 K/mm3 (0.00-0.031); Immature Granulocyte Percent A 0.3 % (0-0.5); Lymphocytes Absolute Auto 1.56 K/mm3 (0.9-3.2); Lymphocytes Percent Auto 25.6 % (18.3-44.2); Mean Corpuscular HGB Conc 32.9 g/dl (32-36); Mean Corpuscular Hemoglobin 31.7 pg (26-34); Mean Corpuscular Volume 96.4 fl (80-100); Monocytes Absolute Auto 0.5 K/mm3 (0.1-0.6); Monocytes Percent Auto 8.7 % (2.6-8.5); Neutrophils Absolute Auto 3.7 K/mm3 (1.3-6.7); Neutrophils Percent Auto 61.4 % (45.5-73.1); Platelet Count Result 226 k/mm3 (150-375); Red Blood Count 4.13 M/mm3 (4.2-5.4); Red Cell Distribution Width 12.8 % (11.5-14.5); White Blood Count 6.1 K/mm3 (4.5-10.0)
[2024-01-29 19:38] LABS: Anion Gap 9 mmol/L (8-16); Blood Urea Nitrogen 18 mg/dL (7-17); Calcium 9.7 mg/dL (8.4-10.2); Carbon Dioxide 22 mmol/L (22-30); Chloride 100 mmol/L (98-107); Creatine Kinase 78 U/L (30-135); Estimated CRCL calculation 27 ml/min; Estimated Glomerular Filt Rate 43; Glucose 105 mg/dL (65-110); Potassium 4.2 mmol/L (3.4-5.0); Sodium 131 mmol/L (137-145)
== END 2024-01-29 20:36 | disposition home or self-care (01) ==
PROVIDERS: Emergency Provider Physician Assistant; PCP Family Medicine
DX: S86.812A Strain of other muscle(s) and tendon(s) at lower leg level, left leg, initial encounter (principal); S86.912A Strain of unspecified muscle(s) and tendon(s) at lower leg level, left leg, initial encounter; X58.XXXA Exposure to other specified factors, initial encounter
CPT/HCPCS: 36415; 73564; 73590; 80048; 82550; 83735; 85025; 93971; 99284; A9270

== ENCOUNTER 2024-02-25 10:11 | Emergency (ER) | payer MEDICARE, BC, SELFPAY ==
[2024-02-25 10:22] VITALS: BP 140/75; PULSE 81; RESP 16; TEMP 36.3; O2SAT 96
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
== END 2024-02-25 10:45 | disposition home or self-care (01) ==
PROVIDERS: Emergency Provider Nurse Practitioner Family; PCP Family Medicine
DX: N39.0 Urinary tract infection, site not specified (principal); R31.9 Hematuria, unspecified; I12.9 Hypertensive chronic kidney disease with stage 1 through stage 4 chronic kidney disease, or unspecified chronic kidney disease; N18.30 Chronic kidney disease, stage 3 unspecified; K21.9 Gastro-esophageal reflux disease without esophagitis; M81.0 Age-related osteoporosis without current pathological fracture
CPT/HCPCS: 81003; 87086; 99213; G0463

== ENCOUNTER 2024-07-08 16:42 | Emergency (ER) | payer MEDICARE, BC, SELFPAY ==
[2024-07-08 17:03] VITALS: BP 160/69; PULSE 70; RESP 16; TEMP 36.2; O2SAT 96
--- NOTE | 2024-07-08 17:16 | ED.WOUNDLAC ---
HPI - Wound/Laceration General Chief Complaint: Wound/Laceration Stated Complaint: FALL/R ARM INJURY Time Seen by Provider: 07/08/24 17:16 Source: patient and family Mode of arrival: ambulatory Limitations: no limitations History of Present Illness HPI narrative: 84-year-old female presents with skin care to right forearm. Patient states she was doing yd work 1 week ago and fell against a fence. Has been cleaning wound at home herself. Mentioned wound to daughter today and daughter brought her to urgent care. Daughter was confused and thought that patient had fallen today and did not realize it was a week ago until they got here. Skin tear is well appearing, no signs of infection. All systems reviewed and negative except as noted above. Related Data Home Medications Medication Instructions Recorded Confirmed pantoprazole 40 mg tablet,delayed 40 mg PO DAILY 06/30/20 07/08/24 release Allergies Allergy/AdvReac Type Severity Reaction Status Date / Time gabapentin Allergy Severe Seizure Verified 07/08/24 16:59 Review of Systems Review of Systems: CONSTITUTIONAL: Denies fever, chills, or sweats. EYES: Denies visual changes, redness, or discharge. ENT: Denies rhinorrhea, congestion, sore throat, or otalgia. CARDIOVASCULAR: Denies chest pain, palpitations, or edema. RESPIRATORY: Denies cough or dyspnea. GASTROINTESTINAL: Denies abdominal pain, nausea, vomiting, or diarrhea. GENITOURINARY: Denies dysuria or hematuria. SKIN: Denies rash or itching. Reports skin tear to right forearm. MUSCULOSKELETAL: Denies back pain, joint pain, or myalgia. NEUROLOGIC: Denies headache, numbness, or weakness. PSYCHIATRIC: Denies anxiety or depression. All other systems reviewed are negative, except as documented in HPI. [facility] Past Medical History Medical History (Updated 07/08/24 @ 17:21 by Toyin Engle NP) ANN-MARIE (acute kidney injury) Anemia With history of iron infusions. Anxiety Anxiety disorder due to medical condition Aortic valve regurgitation Echocardiogram in May 2018 showed normal left ventricular systolic function and size with mild concentric left ventricular hypertrophy and ejection fraction estimated at 60%. Mild aortic valve regurgitation noted with a valve area of 1.7 centimeters squared. BMI 21.0-21.9, adult BMI between 19-24,adult Chronic kidney disease, stage 3 Baseline creatinine is 1.20. 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 She has been evaluated by a health information tech Dr. camacho at [facility], and was told she had no active issues and needed no treatment. Hepatitis C Inactive Insomnia Kidney disease Left humeral fracture She was seen by Dr. Pearson on 02/17/2020 replace the IM nail left tumors fracture Left patella fracture Left wrist fracture Migraine headache Orofacial dyskinesia With chronic dry mouth. Osteoporosis Painful orthopaedic hardware Protein, urine, abnormal presence Reflux esophagitis Rotator cuff tear, left Seizure History of seizure x2 after taking gabapentin. Surgical History Surgical History History of cholecystectomy History of repair of hiatal hernia History of surgery on left wrist ORIF left distal radius fracture in August [address] Hidalgo. Family History Family History Mother Diabetes mellitus Lung cancer Sibling Stomach cancer Sibling Non-Hodgkin lymphoma Social History Social History Social History: The patient is and lives in her own home in [place]. She designates her daughter, Liss Sheikh, as her surrogate decision maker and she wishes to be a full code. She is a lifelong nonsmoker and denies alcohol and drug use. Patient stated that she had 6 daughters and 1 pa
== END 2024-07-08 17:28 | disposition home or self-care (01) ==
PROVIDERS: Emergency Provider Nurse Practitioner Family; PCP Family Medicine
DX: S51.811A Laceration without foreign body of right forearm, initial encounter (principal); W22.8XXA Striking against or struck by other objects, initial encounter; I12.9 Hypertensive chronic kidney disease with stage 1 through stage 4 chronic kidney disease, or unspecified chronic kidney disease; N18.30 Chronic kidney disease, stage 3 unspecified; K21.9 Gastro-esophageal reflux disease without esophagitis; M81.0 Age-related osteoporosis without current pathological fracture
CPT/HCPCS: 99212; G0463

== ENCOUNTER 2024-09-17 09:27 | Outpatient (CLI) | payer MEDICARE, BC, SELFPAY ==
[2024-09-17 10:15] LABS: Hematocrit 41.1 % (37.0-47.0); Hemoglobin 13.2 g/dL (12.0-15.0); Mean Corpuscular HGB Conc 32.1 g/dl (32-36); Mean Corpuscular Hemoglobin 31.2 pg (26-34); Mean Corpuscular Volume 97.2 fl (80-100); Mean Platelet Volume 11.2 fl (7.4-10.4); Platelet Count Result 229 k/mm3 (150-375); Red Blood Count 4.23 M/mm3 (4.2-5.4); Red Cell Distribution Width 12.7 % (11.5-14.5); White Blood Count 5.2 K/mm3 (4.5-10.0)
[2024-09-17 10:23] LABS: Alanine Aminotransferase 14 U/L (6-35); Albumin Level 3.9 g/dL (3.5-5.1); Alkaline Phosphatase 62 U/L (38-126); Anion Gap 6 mmol/L (4-12); Aspartate Amino Transferase 26 U/L (14-36); Bilirubin,Total 0.6 mg/dL (0.2-1.3); Blood Urea Nitrogen 22 mg/dL (7-17); Calcium 9.1 mg/dL (8.4-10.2); Carbon Dioxide 26 mmol/L (22-30); Chloride 103 mmol/L (98-107); Estimated Glomerular Filt Rate 47; Glucose 143 mg/dL (65-110); Potassium 4.3 mmol/L (3.4-5.0); Sodium 135 mmol/L (137-145)
[2024-09-17 12:58] LABS: Iron 101 ug/dL (37-170)
[2024-09-17 13:08] LABS: Percent Iron Saturation 32 % (20-50)
[2024-09-17 13:29] LABS: Vitamin D 25 Hydroxy 50.7 ng/mL
[2024-09-17 18:07] LABS: Free T4 Free Thyroxine 0.81 ng/mL (0.78-2.19)
== END 2024-09-17 09:28 | disposition home or self-care (01) ==
PROVIDERS: PCP Family Medicine; Visit Provider Family Medicine
DX: N18.32 Chronic kidney disease, stage 3b (principal); E61.1 Iron deficiency; E55.9 Vitamin D deficiency, unspecified; B18.2 Chronic viral hepatitis C; E03.9 Hypothyroidism, unspecified
CPT/HCPCS: 36415; 80048; 80076; 82306; 82728; 83540; 83550; 84439; 84443; 85027

== ENCOUNTER 2024-11-29 12:56 | Outpatient (CLI) | payer MEDICARE, BC, SELFPAY ==
[2024-11-29 13:38] LABS: Hematocrit 40.4 % (37.0-47.0); Mean Corpuscular HGB Conc 32.2 g/dl (32-36); Mean Corpuscular Hemoglobin 31.3 pg (26-34); Mean Corpuscular Volume 97.3 fl (80-100); Mean Platelet Volume 11.5 fl (7.4-10.4); Platelet Count Result 257 k/mm3 (150-375); Red Blood Count 4.15 M/mm3 (4.2-5.4); Red Cell Distribution Width 12.9 % (11.5-14.5); White Blood Count 7.1 K/mm3 (4.5-10.0)
[2024-11-29 14:05] LABS: Anion Gap 7 mmol/L (4-12); Blood Urea Nitrogen 20 mg/dL (7-17); Calcium 9.7 mg/dL (8.4-10.2); Carbon Dioxide 29 mmol/L (22-30); Chloride 104 mmol/L (98-107); Estimated Glomerular Filt Rate > 60; Glucose 86 mg/dL (65-110); Potassium 4.4 mmol/L (3.4-5.0); Sodium 140 mmol/L (137-145)
[2024-11-29 14:20] LABS: T4 Thyroxine 6.95 ug/dL (5.53-11.0)
[2024-11-29 14:39] LABS: Ferritin 6.17 ng/mL (11.1-264)
== END 2024-11-29 12:57 | disposition home or self-care (01) ==
PROVIDERS: PCP Family Medicine; Visit Provider Nurse Practitioner Family
DX: E61.1 Iron deficiency (principal); E03.9 Hypothyroidism, unspecified; N28.9 Disorder of kidney and ureter, unspecified; R93.89 Abnormal findings on diagnostic imaging of other specified body structures; D63.1 Anemia in chronic kidney disease; N18.30 Chronic kidney disease, stage 3 unspecified
CPT/HCPCS: 36415; 80048; 82728; 84436; 84443; 85027

== ENCOUNTER 2025-03-15 13:35 | Outpatient (CLI) | payer MEDICARE, BC, SELFPAY ==
--- OUTSIDE RECORDS SUMMARY | 2025-03-15 13:38 | XMS_ITS | Referral Summary ---
Author Organization [facility] [address] Address [address] [place] [address] Care Team Providers Care Geosciences Professor Name Role Phone Jn Casey MD Primary Care Provider [phone] Allergies Active Allergy Reactions Criticality Noted Date Comments Codeine Other (See comments) Low 07/06/2020 Hallucinations Hallucinations Medications benztropine (COGENTIN) 0.5 mg tablet Take 1 tablet (0.5 mg total) by mouth 3 (three) times a day 6 Active clonazePAM (KlonoPIN) 2 mg tablet 2 Active lisinopriL (PRINIVIL,ZESTR [place]) 40 mg tablet Take 1 tablet (40 mg total) by mouth daily 2 Active mirtazapine (REMERON) 15 mg tablet Take 1 tablet (15 mg total) by mouth nightly [address] (PROTONIX) 40 mg EC tablet Take 1 tablet (40 mg total) by mouth daily 2 Active Belsomra 15 mg tablet Take 1 tablet by mouth nightly 2 Active albuterol HFA (PROVENTIL HFA,VENTOLIN HFA,PROAIR HFA) 90 mcg/actuation inhaler Inhale 2 puffs every 6 (six) hours as needed for wheezing or shortness of breath 1 each 2 Active azithromycin (ZITHROMAX) 250 mg tablet Take 2 tabs (500 mg) by mouth today, than 1 tab (250 mg) daily for 4 days. 6 tablet 2 Active Active Problems Problem Noted Date Diagnosed Date Subclinical hypothyroidism 09/26/2022 Assessment & Plan (09/26/2022 12:40 PM UNDERWRITING TECHNICIAN): I explained to the patient how subclinical hypothyroidism does not always need pharmacological intervention, especially the patient is asymptomatic and as long as the TSH stays under 15-10 and stable. Sometimes patients with subclinical hypothyroidism have severe hyper cholesterolemia that would respond to L T4 replacement therapy I have reordered TFTs today including also lipid profile Again as long as TSH stays stable, under 10 will probably just keep monitoring, especially since the patient had a bad reaction to the medication I also explained to the patient how this was a placebo effect because thyroid levels do not rise at all after 3 days of LT4 and it takes usually over 3- 4 weeks, to achieve significant serum levels. Social History Tobacco Use Types Packs/Day Years Used Date Smoking Tobacco: Never Tobacco Cessation:Counseling Given: Not Answered Comments Unknown Sex and Gender Information Value Date Recorded Sex Assigned at Not on file Legal Sex Female 3:53 AM UNDERWRITING TECHNICIAN Gender Identity Female 07/12/2022 3:36 PM CDT Sexual Orientation Not on file Last Filed Vital Signs Vital Sign Reading Time Taken Comments Blood Pressure 138/79 09/30/2022 10:52 AM UNDERWRITING TECHNICIAN Pulse 68 09/30/2022 10:52 AM UNDERWRITING TECHNICIAN Temperature 36.4 C (97.5 F) 09/30/2022 10:52 AM UNDERWRITING TECHNICIAN Respiratory Rate 20 09/30/2022 10:52 AM UNDERWRITING TECHNICIAN Oxygen Saturation 96% 09/30/2022 10:52 AM UNDERWRITING TECHNICIAN Inhaled Oxygen Concentration - - Weight 56.8 kg (125 lb 3.2 oz) 09/30/2022 10:52 AM UNDERWRITING TECHNICIAN Height 163.8 cm (5' 4.49 ) 09/30/2022 10:[address] Body Mass Index 21.17 09/30/2022 10:52 AM UNDERWRITING TECHNICIAN Plan of Treatment Not on file Insurance MEDICARE BLUE ACCESS OOS MEDICARE BLUE ACCESS OOS Care Teams Geosciences Professor Relationship Specialty Start Date End Date Jn Casey MD PCP - General Family Medicine 09/18/20
--- OUTSIDE RECORDS SUMMARY | 2025-03-15 13:38 | XMS_ITS | Clinical Summary ---
Author Organization [facility] Address [address] [place] [address] Phone Care Team Providers Care Polygraph Operator Name Role Phone Jn Casey MD Primary Care Provider [phone] Allergies No known active allergies Medications clonazePAM (KlonoPIN) 2 mg tablet Take 2 mg by mouth 3 times daily. Active mirtazapine (REMERON) 15 mg tablet Take 15 mg by mouth daily at bedtime. Active lisinopriL (PRINIVIL) 40 mg tablet Take 40 mg by mouth daily. Active Belsomra 15 mg Tablet Take 15 mg by mouth daily. 05/07/2020 Active pantoprazole (PROTONIX) 40 mg Tablet, Delayed Release (E.C.) TAKE 1 TABLET BY MOUTH EVERY DAY 90 Tablet 3 01/25/2025 Active Active Problems Problem Noted Date Diagnosed Date Subclinical hypothyroidism 09/26/2022 Overview (02/05/2024): Last Assessment & Plan: I explained to the patient how subclinical [...] 4 weeks, to achieve significant serum levels. Stage 3a chronic kidney disease 10/06/2020 Protein-calorie malnutrition, severe 06/07/2020 Painful swallowing 06/06/2020 ANN-MARIE (acute kidney injury) 06/06/2020 Oral dyskinesia 06/06/2020 Benign hypertension 06/06/2020 Iron deficiency anemia due to chronic blood loss 08/24/2015 Major depressive disorder, single episode 2013 Generalized anxiety disorder 04/19/2014 Abnormal weight loss 03/04/2013 Esophagitis Abnormal finding on GI tract imaging Esophageal dysphagia Encounters Date Type Department Care Team Description 01/26/2025 External Device Data [facility]CTION Provider, Abstract 01/20/2025 [facility] [place] [address] [place] [address] Vignesh Hdz MD 01/15/2025 External Device Data [facility] Provider, Abstract 01/15/2025 External Device Data [facility] Provider, Abstract 12/29/2024 External Device Data [facility]STRACTION Provider, Abstract from Last 3 Months Family History Medical History Relation Name Comments Other Father Lung Cancer Mother Stomach Cancer Other nephew Stomach Cancer Sister Colon Cancer Neg Hx Relation Name Status Comments Father Mother Alive Other Sister Social History Tobacco Use Types Packs/Day Years Used Date Smoking Tobacco: Never Smokeless Tobacco: Never Tobacco Cessation:Counseling Given: Not Answered Alcohol Use Standard Drinks/Week Comments Not Currently 0 (1 standard drink = 0.6 oz pur e alcohol) Feeling Safe Answer Date Recorded Are you in a relationship wi th someone who hurts you emotionally and/or physically? No 03/30/2024 Comments No Sex and Gender Information Value Date Recorded Sex Assigned at Not on file Legal Sex Female 4:49 PM CDT Gender Identity Not on file Sexual Orientation Not on file Last Filed Vital Signs Vital Sign Reading Time Taken Comments Blood Pressure 155/66 03/30/2024 1:38 PM CDT Pulse 60 03/30/2024 1:38 PM CDT Temperature 35.7 C (96.3 F) 03/30/2024 1:19 PM CDT Respiratory Rate 16 03/30/2024 1:38 PM CDT Oxygen Saturation 97% 03/30/2024 1:38 PM CDT Inhaled Oxygen Concentration - - Weight 52.6 kg (116 lb) 03/30/2024 11:50 AM CDT Height 162.6 cm (5' 4 ) 03/30/2024 11:50 AM CDT Body Mass Index 19.91 03/30/2024 11:50 AM CDT Plan of Treatment Upcoming Encounters Date Type Department Care Team (Late st Contact Info) Description 03/22/2025 3:00 PM CDT Office Visit [facility] Oncology and Hematology - Michael [address] [facility] [address] [place] [address] Aniceto Saunders MD [address] [facility] [address] [place] [address] Health Maintenance Due Date Last Done Comments DTAP/TDAP/TD VACCINES (1 - Tdap) 1959 PNEUMOCOCCAL VACCINE 50+ YEARS (1 of 1 - PCV) 06/14/19 90 ZOSTER VACCINE (1 of 2) 1990 OSTEOPOROSIS SCREENING 2005 RSV VACCINE (60+ or ) (1 - 1-dose 75+ series) 2015 INFLUENZA VACCINE (#1) 2024 [place] [address] MEDICARE PART A AND B [employer] ACCESS/TRUE [employer] PPO MEDICARE PART A AND B [employer] BLUE ACCESS/TRUE BLUE PPO Advance Directives For more information, please contact: [phone] * Full Code (Latest Code Status on File) Date Activated Date Inactivated Comments 03/30/2024 12:04 PM 03/30/2024 4:25 PM * Full Code Date Activated Date Inactivated Comments 06/06/2020 8:43 AM 06/08/2020 2:30 PM Care Teams Polygraph Operator Relationship Specialty Start Date End Date Jn Casey MD [address] [place] [address] PCP - General Family Practice 06/05/20
--- OUTSIDE RECORDS SUMMARY | 2025-03-15 13:38 | XMS_ITS | Clinical Summary ---
Author Organization [facility] Address [address] [place] [address] Care Team Providers Care Occupational Therapy Teacher Name Role Phone Jn Casey MD Primary Care Provider [phone] Social History Tobacco Use Types Packs/Day Years Used Date Smoking Tobacco: Never Assessed Comments Unknown Sex and Gender Information Value Date Recorded Sex Assigned at Not on file Legal Sex Female 8:46 AM CDT Gender Identity Not on file Sexual Orientation Not on file Plan of Treatment Health Maintenance Due Date Last Done Comments DTaP, Tdap and Td Vaccines ( 1 - Tdap) 1959 Pneumococcal Vaccine: 50+ Ye ars (1 of 1 - PCV) 1990 Zoster Vaccines (1 of 2) 1990 Annual Medicare Wellness Visit 2005 Dexa Scan (General) 2005 RSV Immunization or 60+ Years (1 - 1-dose 75+ series) 2015 COVID-19 Vaccine (1 - 2023-2 5 season) 2024 PHQ-2 (Physician [place]) 11/10/2024 Meningococcal B Vaccine Aged Out No l onger eligible based on patient's age to complete this topic Meningococcal Vaccine Aged Out No rosemarie hoang eligible based on patient's age to complete this topic RSV Immunizations Under 20 Months Aged Out No longer eligible based on patient's age to complete this topic Insurance MEDICARE Care Teams Occupational Therapy Teacher Relationship Specialty Start Date End Date Jn Casey MD [address] [address] PCP - General FAMILY PRACTICE 07/25/23
--- OUTSIDE RECORDS SUMMARY | 2025-03-15 13:38 | XMS_ITS | Clinical Summary ---
Author Organization [facility] Address [address] [place] [address] Care Team Providers Care Color Straining Bag Washer Name Role Phone Jn Casey MD Primary Care Provider [phone] Source Comments [facility],non-owned Affiliates and Associated Physician Practices is amultiple site organization consisting of ambulatory clinics and hospital sitesin [place], [place], [place] and [place]. This disclosure is being madepursuant to the Care Everywhere program and may not contain all information available regarding this patient. Last updated 18.[facility] Allergies Active Allergy Reactions Criticality Noted Date Comments Codeine Other Hallucinations Medications * This document contains information received from the source organization and may not represent a complete record from that organization. * Be aware that medications may not be up to date on this document. Alwaysverify current medications with the patient. benztropine (COGENTIN) 0.5 MG tablet Take 0.5 mg by mouth TID. 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 Generalized anxiety disorder 04/19/2014 Major depressive disorder, single episode 2013 Abnormal weight loss 03/04/2013 Dysphagia 03/04/2013 Family History Medical History Relation Name Comments None Known Father Status: d Cancer Mother lung; Status: D eceased Relation Name Status Comments Father Mother Social History Tobacco Use Types Packs/Day Years Used Date Smoking Tobacco: Never Smokeless Tobacco: Never Alcohol Use Standard Drinks/Week Comments No 0 (1 standard drink = 0.6 oz pur e alcohol) Comments Unknown Sex and Gender Information Value Date Recorded Sex Assigned at Not on file Legal Sex Female 5:57 PM SENIOR QUALITY ENGINEER Gender Identity Not on file Sexual Orientation Not on file Last Filed Vital Signs Vital Sign Reading Time Taken Comments Blood Pressure 131/78 11/09/2015 12:45 PM SENIOR QUALITY ENGINEER Pulse 72 11/09/2015 12:45 PM SENIOR QUALITY ENGINEER Temperature 36.1 C (97 F) 11/09/2015 12:45 PM SENIOR QUALITY ENGINEER Respiratory Rate 16 11/09/2015 12:45 PM SENIOR QUALITY ENGINEER Oxygen Saturation 98% 03/10/2013 2:26 PM CDT Inhaled Oxygen Concentration - - Weight 45.8 kg (101 lb) 11/09/2015 12:45 PM SENIOR QUALITY ENGINEER Height 166.4 cm (5' 5.5 ) 11/09/2015 12:45 PM CS T Body Mass Index 16.55 11/09/2015 12:45 PM SENIOR QUALITY ENGINEER Plan of Treatment Health Maintenance Due Date Last Done Comments BONE DENSITY TESTING 1940 DTAP/TDAP/TD VACCINES (1 - Tdap) 1959 PNEUMOCOCCAL VACCINE 50+ (1 of 1 - PCV) 1990 ZOSTER VACCINE (1 of 2) 1990 Respiratory Syncytial Virus (RSV) Vaccine Pt: or over 60 yrs (1 - 1-dose 75+ series) 2015 COVID-19 VACCINE ( - 2023-2 5 season) 2024 DEPRESSION SCREENING 11/10/2024 INFLUENZA VACCINE (Season Ended) 2025 HEPATITIS B VACCINE Aged Out No longe r eligible based on patient's age to complete this topic HIB VACCINE Aged Out No longer eligi ble based on patient's age to complete this topic HPV VACCINE Aged Out No longer eligi ble based on patient's age to complete this topic MENINGOCOCCAL (Group B) VACC INE SHARED DECISION-MAKING Aged Out No longer eligibl e based on patient's age to complete this topic MENINGOCOCCAL GROUPS A/C/Y/W VACCINE Aged Out No longer eligible b ased on patient's age to complete this topic Insurance MEDICARE [facility] Care Teams Color Straining Bag Washer Relationship Specialty Start Date End Date Jn Casey MD [address] [place] [address] PCP - General 06/21/09
--- OUTSIDE RECORDS SUMMARY | 2025-03-15 13:38 | XMS_ITS | Clinical Summary ---
Author Organization [facility] [address] Address [address] [place] [address] Care Team Providers Care Corporate Technical Recruiter Name Role Phone Jn Casey MD Primary Care Provider [phone] Allergies Active Allergy Reactions Criticality Noted Date [...] 09/26/2022 Assessment & Plan (09/26/2022 12:40 PM UM SPECIALIST): I explained to the patient how subclinical [...] 4 weeks, to achieve significant serum levels. Medical History Medical History Date Comments Abnormality of gait and mobility Abnormal gait - (Added by SU Conv) Personal history of other di seases of the circulatory system History of hypertension - (A dded by SU Conv) Personal history of diseases of the blood and blood-forming organs and certain disorders involving the immune mechanism History of an emia - (Added by SU Conv) Hypothyroidism Family History Medical History Relation Name Comments Thyroid disease Mother thyroidectomy Other daughter Relation Name Status Comments Mother Other daughter Social History Tobacco Use Types Packs/Day Years Used Date Smoking Tobacco: Never Tobacco Cessation:Counseling Given: Not Answered Comments Unknown Sex and Gender Information Value Date Recorded Sex Assigned at Not on file Legal Sex Female 3:53 AM UM SPECIALIST Gender Identity Female 07/12/2022 3:36 PM CDT Sexual Orientation Not on file Obstetrics History Last Filed Vital Signs Vital Sign Reading Time Taken Comments Blood Pressure 138/79 09/30/2022 10:52 AM UM SPECIALIST Pulse 68 09/30/2022 10:52 AM UM SPECIALIST Temperature 36.4 C (97.5 F) 09/30/2022 10:52 AM UM SPECIALIST Respiratory Rate 20 09/30/2022 10:52 AM UM SPECIALIST Oxygen Saturation 96% 09/30/2022 10:52 AM UM SPECIALIST Inhaled Oxygen Concentration - - Weight 56.8 kg (125 lb 3.2 oz) 09/30/2022 10:52 AM UM SPECIALIST Height 163.8 cm (5' 4.49 ) 09/30/2022 10:[address] Body Mass Index 21.17 09/30/2022 10:52 AM UM SPECIALIST Plan of Treatment Health Maintenance Due Date Last Done Comments Depression Screening 1940 Fall Risk Assessment 1940 Osteoporosis Screening-Bone Density Scan 1940 DTaP/Tdap/Td Vaccine (1 - Tdap) 1951 Hepatitis B Screening 1958 Pneumococcal vaccine 65+ (1 of 1 - PCV) 1990 Zoster Vaccine (1 of 2) 1990 Well Visit 65+ 2005 Covid-19 Vaccine (5 - 2023-2 5 season) 2024 03/27/2022, 09/17/2021, 01/30/2021, Additional history exists Influenza Vaccine (#1) 2024 Insurance SEVERY [employer] OOS MEDICARE SEVERY ACCESS OOS Member Subscriber Plan / Payer ( fective 2021-Present) Name:Radha Saenz Relation to Subscriber:Self Name:Radha Saenz Payer ID:[id number] (NAIC) Type:[facility] Address: [address] [place] [id number] Care Teams Corporate Technical Recruiter Relationship Specialty Start Date End Date Jn Casye MD PCP - General Family Medicine 09/18/20
--- OUTSIDE RECORDS SUMMARY | 2025-03-15 13:38 | XMS_ITS | Continuity of Care Document ---
Author Organization [facility] Address [address] [facility] [address] [facility] [address] [place] [address] Phone Care Team Providers Care Sausage Stringer Name Role Phone Yefri Kilpatrick Unavailable Unavailable Procedures Procedure Date Eye Exam, New Patient Refraction Advance Directives Directive Yes / No Effective Date File Name No Information Encounters Encounter Description Practice Location Reason(s) For Visit Diagnoses Date Provider Providers Copied on Encounter [facility], [address], [place], [place], [id number], [place] tel:[phone] [facility] No Information [address]. [address] [employer] [facility] [address], [place], [address], [place]. tel:[phone] Family History Family Member Type Diagnosis Age At Onset No Information Payers Payer name Insurance type Covered alliance party ID Authoriza tion(s) Medicare [facility] [id number] [place] Out Of State [id number] Social History Type Description Quantity Date Captured Comments Sex Female Smoking Status No Information Chief Complaint And Reason For Visit No Information Reason For Referral Reason For Referral No Information History Of Present Illness Encounter Date Complaint History Of Prese nt Illness No Information Functional Status Date Functional Assessmen t No Information Instructions Date Instruction Additional Infor mation No Information Assessments Type Assessment Date No Information Patient Care Teams Name Effective Dates (start - stop) Status Members No Information
[2025-03-15 14:50] LABS: Anion Gap 8 mmol/L (4-12); Blood Urea Nitrogen 23 mg/dL (7-17); Calcium 9.1 mg/dL (8.4-10.2); Carbon Dioxide 28 mmol/L (22-30); Chloride 104 mmol/L (98-107); Estimated Glomerular Filt Rate 55; Glucose 95 mg/dL (65-110); Potassium 4.6 mmol/L (3.4-5.0); Sodium 140 mmol/L (137-145)
== END 2025-03-15 13:36 | disposition home or self-care (01) ==
PROVIDERS: PCP Family Medicine; Visit Provider Nurse Practitioner Family
DX: N18.32 Chronic kidney disease, stage 3b (principal)
CPT/HCPCS: 36415; 80048

== ENCOUNTER 2025-03-22 15:40 | Outpatient (CLI) | payer MEDICARE, BC, SELFPAY ==
--- OUTSIDE RECORDS SUMMARY | 2025-03-22 15:48 | XMS_ITS | Clinical Summary ---
Author Organization [facility] [address] Address [address] [place] [address] Care Team Providers Care Garment Finisher Name Role Phone Jn Casey MD Primary Care Provider [phone] Allergies Active Allergy Reactions Criticality Noted Date [...] 09/26/2022 Assessment & Plan (09/26/2022 12:40 PM RETAIL DISTRICT MANAGER): I explained to the patient how subclinical [...] on file Legal Sex Female 3:53 AM RETAIL DISTRICT MANAGER Gender Identity Female 07/12/2022 3:36 PM CDT Sexual Orientation Not on file Obstetrics History Last Filed Vital Signs Vital Sign Reading Time Taken Comments Blood Pressure 138/79 09/30/2022 10:52 AM RETAIL DISTRICT MANAGER Pulse 68 09/30/2022 10:52 AM RETAIL DISTRICT MANAGER Temperature 36.4 C (97.5 F) 09/30/2022 10:52 AM RETAIL DISTRICT MANAGER Respiratory Rate 20 09/30/2022 10:52 AM RETAIL DISTRICT MANAGER Oxygen Saturation 96% 09/30/2022 10:52 AM RETAIL DISTRICT MANAGER Inhaled Oxygen Concentration - - Weight 56.8 kg (125 lb 3.2 oz) 09/30/2022 10:52 AM RETAIL DISTRICT MANAGER Height 163.8 cm (5' 4.49 ) 09/30/2022 10:[address] Body Mass Index 21.17 09/30/2022 10:52 AM RETAIL DISTRICT MANAGER Plan of Treatment Health Maintenance Due Date [...] history exists Influenza Vaccine (#1) 2024 [place] [address] [place] [address] [place] ACCESS OOS Member Subscriber Plan / Payer ( fective 2021-Present) Name:Radha Saenz Relation to Subscriber:Self Name:Radha Saenz Payer ID:[id number] (NAIC) Type:[facility] Address: [address] [place] [phone] Care Teams Garment Finisher Relationship Specialty Start Date End Date Jn Casey MD PCP - General Family Medicine 09/18/20
--- OUTSIDE RECORDS SUMMARY | 2025-03-22 15:48 | XMS_ITS | Continuity of Care Document ---
Author Organization [facility] Address [address] [facility] [address] [facility] [address] [place] [address] Phone Care Team Providers Care Bandoleer Packer Name Role Phone Yefri Kilpatrick Unavailable Unavailable Procedures Procedure Date Eye Exam, New Patient Refraction Advance Directives Directive Yes / No Effective Date File Name No Information Encounters Encounter Description Practice Location Reason(s) For Visit Diagnoses Date Provider Providers Copied on Encounter [facility], [address], [place], [place], [id number], [place] tel:[phone] [facility] No Information 4-200 8 Skyleryeisondonal Asif. [address] [facility] [address], [place], [address], [place]. tel:[phone] Family History Family Member Type Diagnosis Age At Onset No Information Payers Payer name Insurance type Covered alliance party ID Authoriza tion(s) Medicare [facility] [id number] [place] Out Of [place] [id number] Social History Type Description Quantity Date Captured [...]
--- OUTSIDE RECORDS SUMMARY | 2025-03-22 15:48 | XMS_ITS | Encounter Summary ---
Author Organization [facility] Address [address] [place] [address] Care Team Providers Care Regulatory Analyst Name Role Phone Jn Casey MD Primary Care Provider [phone] Encounter Details Date Type Department Care Team (Late st Contact Info) Description 03/22/2025 3:00 PM CDT Office Visit [facility] Oncology and Hematology - [place] [address] [facility] [address] [place] [address] Aniceto Saunders MD [address] [facility] [address] [place] [address] Chronic anemia (Primary Dx) Social History Tobacco Use Types Packs/Day Years [...] on file Sexual Orientation Not on file documented as of this encounter Last Filed Vital Signs Vital Sign Reading Time Taken Comments Blood Pressure 109/75 03/22/2025 3:07 PM CDT Pulse 70 03/22/2025 3:07 PM CDT Temperature 36.5 C (97.7 F) 03/22/2025 3:07 PM CDT Respiratory Rate 15 03/22/2025 3:07 PM CDT Oxygen Saturation 95% 03/22/2025 3:07 PM CDT Inhaled Oxygen Concentration - - Weight 53.6 kg (118 lb 3.2 oz) 03/22/2025 3:07 P M CDT Height 162.6 cm (5' 4 ) 03/22/2025 3:07 PM CDT Body Mass Index 20.29 03/22/2025 3:07 PM CDT documented in this encounter Plan of Treatment Upcoming Encounters Date Type Department Care Team (Late st Contact Info) Description 04/06/2025 4:30 PM CDT Telephone Check Up [facility] Oncology and Hematology - [place] [address] [place] [address] Aniceot Saunders MD [address] [facility] [address] [place] [address] Scheduled Orders Name Type Priority Associated Diagnoses Orde r Schedule CBC WITH DIFFERENTIAL Lab Stat Chronic anemia Expected: 03/22/2025, Expires: 03/22/2026 COMPREHENSIVE METABOLIC PANEL Lab Stat Chronic anemia Expected: 03/22/2025, Expires: 03/22/2026 FERRITIN Lab Routine Chronic anemia Expected: 03/22/2025, Expires: 03/22/2026 IRON, TIBC, AND PERCENT SATURATION Lab Routine Chronic anemia Expected: 03/22/2025, Expires: 03/22/2026 METHYLMALONIC ACID Lab Routine Chronic anemia Expected: 03/22/2025, Expires: 03/22/2026 TRANSFERRIN RECEPTOR TFR SOLUBLE Lab Routine Chronic anemia Expected: 03/22/2025, Expires: 03/22/2026 VITAMIN B12 AND FOLATE Lab Routine Chronic anemia Expected: 03/22/2025, Expires: 03/22/2026 PROTEIN ELECTROPHORESIS W/REFLEX,SERUM Lab Routine Chronic anemia Expected: 03/22/2025, Expires: 03/22/2026 documented as of this encounter Visit Diagnoses Diagnosis Chronic anemia- Primary Anemia, unspecified documented in this encounter Care Teams Regulatory Analyst Relationship Specialty Start Date End Date Jn Casey MD [address] [place] [id number] PCP - General Family Practice 06/05/20 documented as of this encounter
--- OUTSIDE RECORDS SUMMARY | 2025-03-22 15:48 | XMS_ITS | Referral Summary ---
Author Organization [facility] [place] [address] Address [address] [place] [address] Care Team Providers Care Director Adult Name Role Phone Jn Casey MD Primary Care Provider [phone] Allergies Active Allergy Reactions Criticality Noted Date [...] 09/26/2022 Assessment & Plan (09/26/2022 12:40 PM HOSPITAL ADMITTING CLERK): I explained to the patient how subclinical [...] on file Legal Sex Female 3:53 AM HOSPITAL ADMITTING CLERK Gender Identity Female 07/12/2022 3:36 PM CDT Sexual Orientation Not on file Last Filed Vital Signs Vital Sign Reading Time Taken Comments Blood Pressure 138/79 09/30/2022 10:52 AM HOSPITAL ADMITTING CLERK Pulse 68 09/30/2022 10:52 AM HOSPITAL ADMITTING CLERK Temperature 36.4 C (97.5 F) 09/30/2022 10:52 AM HOSPITAL ADMITTING CLERK Respiratory Rate 20 09/30/2022 10:52 AM HOSPITAL ADMITTING CLERK Oxygen Saturation 96% 09/30/2022 10:52 AM HOSPITAL ADMITTING CLERK Inhaled Oxygen Concentration - - Weight 56.8 kg (125 lb 3.2 oz) 09/30/2022 10:52 AM HOSPITAL ADMITTING CLERK Height 163.8 cm (5' 4.49 ) 09/30/2022 10:[address] Body Mass Index 21.17 09/30/2022 10:52 AM HOSPITAL ADMITTING CLERK Plan of Treatment Not on file Insurance MEDICARE BLUE ACCESS OOS MEDICARE BLUE ACCESS OOS Care Teams Director Adult Relationship Specialty Start Date End Date Jn Casey MD PCP - General Family Medicine 09/18/20
--- OUTSIDE RECORDS SUMMARY | 2025-03-22 15:48 | XMS_ITS | Clinical Summary ---
Author Organization [facility] Address [address] [place] [address] Care Team Providers Care Extrusion Press Adjuster Name Role Phone Jn Casey MD Primary Care Provider [phone] Social History Tobacco Use Types Packs/Day Years [...] - 2023-2 5 season) 2024 PHQ-2 (Physician [place]) 11/10/2024 Meningococcal B Vaccine Aged Out No l onger eligible based on patient's age to complete this topic Meningococcal Vaccine Aged Out No rosemarie hoang eligible based on patient's age to complete this topic RSV Immunizations Under 20 Months Aged Out No longer eligible based on patient's age to complete this topic Insurance MEDICARE Care Teams Extrusion Press Adjuster Relationship Specialty Start Date End Date Jn Casey MD [address] [address] PCP - General FAMILY PRACTICE 07/25/23
--- OUTSIDE RECORDS SUMMARY | 2025-03-22 15:48 | XMS_ITS | Clinical Summary ---
Author Organization [facility] [employer] Address [address] [place] [address] Care Team Providers Care Monument Installer Name Role Phone Jn Casey MD Primary Care Provider [phone] Source Comments [facility],non-owned Affiliates and Associated Physician Practices is amultiple site organization consisting of ambulatory clinics and hospital sitesin [place], [place], [place] and [place]. This disclosure is being madepursuant to the Care Everywhere program and may not contain all information available regarding this patient. Last updated 18.[facility] [employer] Allergies Active Allergy Reactions Criticality Noted Date [...] on file Legal Sex Female 5:57 PM DIRECTOR CARDIOLOGY Gender Identity Not on file Sexual Orientation Not on file Last Filed Vital Signs Vital Sign Reading Time Taken Comments Blood Pressure 131/78 11/09/2015 12:45 PM DIRECTOR CARDIOLOGY Pulse 72 11/09/2015 12:45 PM DIRECTOR CARDIOLOGY Temperature 36.1 C (97 F) 11/09/2015 12:45 PM DIRECTOR CARDIOLOGY Respiratory Rate 16 11/09/2015 12:45 PM DIRECTOR CARDIOLOGY Oxygen Saturation 98% 03/10/2013 2:26 PM CDT Inhaled Oxygen Concentration - - Weight 45.8 kg (101 lb) 11/09/2015 12:45 PM DIRECTOR CARDIOLOGY Height 166.4 cm (5' 5.5 ) 11/09/2015 12:45 PM CS T Body Mass Index 16.55 11/09/2015 12:45 PM DIRECTOR CARDIOLOGY Plan of Treatment Health Maintenance Due Date [...] age to complete this topic Insurance MEDICARE [facility] Care Teams Monument Installer Relationship Specialty Start Date End Date Jn Casey MD [address] [place] [address] PCP - General 06/21/09
--- OUTSIDE RECORDS SUMMARY | 2025-03-22 15:48 | XMS_ITS | Patient Health Record ---
Author Organization [facility] Billing Info Address [address] [place] [address] Care Team Providers Care Supervisor Mattress And Boxsprings Name Role Phone ANITA MILLER Unavailable [phone] AGUSTIN Kimball, SAYER Unavailable Unavailable Reason For Referral No Information Plan Of Treatment No Information Insurance Providers Payer Name Payer Address Payer Phone Subscriber Number Group Number Insured Name Patient Relationship to Insured Coverage Start Date Coverage End Date MEDICARE [place] PART B [address] [facility], [place] [id number] Radha Saenz Self - patient is the insured 4 [facility] OOS HMO [place] PPO [address] [place], [place] [id number] Radha Saenz Self - patient is the insured 4
--- OUTSIDE RECORDS SUMMARY | 2025-03-22 15:48 | XMS_ITS | Clinical Summary ---
Author Organization [facility] Address [address] [place] [address] Phone Care Team Providers Care Manager Equipment Name Role Phone Jn Casey MD Primary Care Provider [phone] Allergies Active Allergy Reactions Criticality Noted Date Comments Codeine Other (See Comments) Low 07/06/2020 Hallucinations Hallucinations Hallucinations Gabapentin Unknown 03/22/2025 Medications clonazePAM (KlonoPIN) 2 mg tablet Take [...] Encounters Date Type Department Care Team Description 03/22/2025 3:00 PM CDT Office Visit [facility] Oncology and Hematology - [place] [address] [place] [address] Aniceto Saunders MD Chronic anemia (Primary Dx) 01/26/2025 External Device Data STL ABSTRACTION Provider, Abstract 01/20/2025 Pending Sale To [facility] [address] [place] [address] Vignesh Hdz MD 01/15/2025 External Device Data STL ABSTRACTION Provider, Abstract 01/15/2025 External Device Data STL ABSTRACTION Provider, Abstract 12/29/2024 External Device Data STL ABSTRACTION Provider, Abstract from Last 3 Months Family History Medical History Relation Name Comments No Known Problems Brother 1 No Known Problems Brother 2 No Known Problems Child 1 No Known Problems Child 2 No Known Problems Child 3 No Known Problems Child 4 No Known Problems Child 5 No Known Problems Child 6 No Known Problems Child 7 No Known Problems Child 8 No Known Problems Child 9 Lung Cancer Father Lung Cancer Mother Diabetes Sister 1 Endometrial Cancer Sister 1 Heart Disease Sister 1 Kidney Cancer Sister 1 No Known Problems Sister 2 Stomach Cancer Sister 3 No Known Problems Sister 4 Colon Cancer Neg Hx Relation Name Status Comments Brother 1 Alive Brother 2 Child 1 Alive Child 2 Alive Child 3 Alive Child 4 Alive Child 5 Alive Child 6 Alive Child 7 Alive Child 8 Alive Child 9 Alive Father Mother Alive Sister 1 Alive Sister 2 Alive Sister 3 Sister 4 Alive Social History Tobacco Use Types Packs/Day Years [...] Mass Index 20.29 03/22/2025 3:07 PM CDT Plan of Treatment Upcoming Encounters Date Type Department Care Team (Late st Contact Info) Description 04/06/2025 4:30 PM CDT Telephone Check Up [facility] Oncology and Hematology - [place] [address] [place] [address] [facility] [address] [place] [address] Aniceto Saunders MD [address] [facility] [address] [place] [address] Health Maintenance Due Date Last Done Comments DTAP/TDAP/TD VACCINES (1 - Tdap) 1959 Traditional Medicare (ACO) Annual Wellness Visit 06/14 PNEUMOCOCCAL VACCINE 50+ YEARS (1 of 1 - PCV) 06/14/19 90 ZOSTER VACCINE (1 of 2) 1990 OSTEOPOROSIS SCREENING 2005 RSV VACCINE (60+ or ) (1 - 1-dose 75+ series) 2015 INFLUENZA VACCINE (#1) 2024 Insurance MEDICARE PART A AND B [employer] ACCESS/TRUE BLUE PPO MEDICARE PART A AND B [employer] BLUE ACCESS/TRUE BLUE PPO Advance Directives For more information, please contact: [phone] * Full Code (Latest Code Status on File) Date Activated Date Inactivated Comments 03/30/2024 12:04 PM 03/30/2024 4:25 PM * Full Code Date Activated Date Inactivated Comments 06/06/2020 8:43 AM 06/08/2020 2:30 PM Care Teams Manager Equipment Relationship Specialty Start Date End Date Jn Casey MD [address] [place] [address] PCP - General Family Practice 06/05/20
[2025-03-22 15:57] LABS: Basophils Absolute Auto 0.1 K/mm3 (0.0-0.1); Basophils Percent Auto 0.8 % (0.2-1.2); Eosinophils Absolute Auto 0.3 K/mm3 (0-0.3); Eosinophils Percent Auto 4.5 % (0-4.4); Hematocrit 40.7 % (37.0-47.0); Hemoglobin 12.9 g/dL (12.0-15.0); Immature Granulocyte Absolute 0.02 K/mm3 (0.00-0.031); Immature Granulocyte Percent A 0.3 % (0-0.5); Lymphocytes Absolute Auto 1.85 K/mm3 (0.9-3.2); Lymphocytes Percent Auto 25.4 % (18.3-44.2); Mean Corpuscular HGB Conc 31.7 g/dl (32-36); Mean Corpuscular Hemoglobin 30.4 pg (26-34); Mean Platelet Volume 11.2 fl (7.4-10.4); Monocytes Absolute Auto 0.5 K/mm3 (0.1-0.6); Monocytes Percent Auto 6.6 % (2.6-8.5); Neutrophils Absolute Auto 4.5 K/mm3 (1.3-6.7); Neutrophils Percent Auto 62.4 % (45.5-73.1); Platelet Count Result 317 k/mm3 (150-375); Red Blood Count 4.24 M/mm3 (4.2-5.4); Red Cell Distribution Width 13.2 % (11.5-14.5); White Blood Count 7.3 K/mm3 (4.5-10.0)
[2025-03-22 16:47] LABS: Alanine Aminotransferase 16 U/L (6-35); Albumin Level 4.1 g/dL (3.5-5.1); Alkaline Phosphatase 79 U/L (38-126); Anion Gap 5 mmol/L (4-12); Aspartate Amino Transferase 26 U/L (14-36); Bilirubin,Total 0.5 mg/dL (0.2-1.3); Blood Urea Nitrogen 20 mg/dL (7-17); Calcium 9.1 mg/dL (8.4-10.2); Carbon Dioxide 29 mmol/L (22-30); Chloride 106 mmol/L (98-107); Estimated Glomerular Filt Rate 58; Glucose 116 mg/dL (65-110); Potassium 4.7 mmol/L (3.4-5.0); Sodium 140 mmol/L (137-145)
[2025-03-22 17:02] LABS: Iron 62 ug/dL (37-170)
[2025-03-22 17:12] LABS: Percent Iron Saturation 18 % (20-50)
[2025-03-22 17:42] LABS: Ferritin 6.79 ng/mL (11.1-264)
[2025-03-22 18:00] LABS: Folic Acid > 20.0 ng/mL (2.76->20)
[2025-03-23 17:03] LABS: Protein, Total 6.6 g/dL (6.1-8.1)
[2025-03-25 09:48] LABS: Albumin 3.6 g/dL (3.8-4.8); Alpha 1 Globulin 0.3 g/dL (0.2-0.3); Alpha 2 Globulin 1.1 g/dL (0.5-0.9); Beta 1 Globulin 0.4 g/dL (0.4-0.6); Gamma Globulin 0.8 g/dL (0.8-1.7)
[2025-03-25 13:43] LABS: Soluble Transferrin Receptor 1.14 mg/L (0.76-1.76)
[2025-03-26 03:34] LABS: Methylmalonic Acid 171 nmol/L (85-423)
== END 2025-03-22 15:41 | disposition home or self-care (01) ==
LOC: ANHLAB 15:45
PROVIDERS: PCP Family Medicine; Visit Provider Internal Medicine Hematology & Oncology
DX: D64.9 Anemia, unspecified (principal)
CPT/HCPCS: 36415; 80053; 82607; 82728; 82746; 83540; 83550; 83921; 84155; 84165; 84238; 85025